=== PATIENT | female | born 1940 | race Caucasian/White ===

== ENCOUNTER 2017-07-07 11:18 | Inpatient (IN) | payer OTHER, MEDICARE ==
[~2017-07-07 11:18] MED LIST: ALBUTEROL SULFAT3 M1 NEB; AMLODIPINE BESYL5 M1 PO; ASPIRIN EC81 M1 PO; ASPIRIN81 M1 PO; ATORVASTATIN CA20 M1 PO; ATORVASTATIN CA20 MG PO; ATORVASTATIN CA40 MG PO; CALCIUM 600600 M1 PO; CALCIUM600 M3 PO; CEFUROXIME500 MG PO; CIPRO250 MG PO; COUMADIN 2 MG TA2 MG PO; COUMADIN 5 MG TA5 MG PO; COUMADIN 7.5 M7.5 MG PO; COUMADIN1 M1 PO; COUMADIN2 M1 PO; COUMADIN5 M2 PO; COUMADIN7.5 M1 PO; COZAAR 50MG TAB50 MG PO; DIFLUCAN150 M1 PO; FERROUS SULFAT325 M1 PO; FUROSEMIDE40 MG PO; HUMALOG MI100 UNIT/1 SC; IMDUR60 MG PO; IRON325 M3 PO; ISOSORBIDE MONO60 M1 PO; K-DUR 20MEQ TA20 MEQ PO; K-TAB ER20 MEQ PO; KEFLEX500 M1 PO; LASIX20 MG PO; LASIX80 M1 PO; LEVOTHYROXINE0.05 M1 PO; LEVOTHYROXINE50 MCG PO; LOPRESSOR 25MG25 MG PO; LOSARTAN POTAS100 MG PO; LOSARTAN POTASS50 M1 PO; LOSARTAN POTASS50 MG PO; MAGNESIUM OXID400 MG PO; MAGNESIUM400 M1 PO; METFORMIN ER500 MG PO; METFORMIN HCL500 M4 PO; METOPROLOL TART25 M1 PO; Mucinex PO; NATURAL IRON65 MG PO; NORVASC 5MG TAB5 MG PO; PERCOCET 5-3251 EACH PO; PERPHEN AMITRI PO; POTASSIUM CHLO10 MEQ PO; PREDNISONE10 MG PO; PRILOSEC 20MG C20 MG PO; PROLIA60 MG/1 ML INJ; PYRIDIUM100 M1 PO; PYRIDIUM100 MG PO; SYMBICORT 160/41 PUF INH; SYMBICORT 16010.2 GM INH; VITAMIN D1000 IU PO; VITAMIN D1000 UNIT PO; [UNRECOGNIZED DRUG - OTHER] PO
--- NOTE | 2017-07-07 12:23 | ED CARDIAC/CP/PALPITATIONS ---
History of Present Illness General Chief Complaint: Dyspnea (COPD, CHF, Other) Stated Complaint: SOB; SENT IN BY MD DENIS FOR ?CHF Source: patient, old records, EMS Exam Limitations: no limitations Vital Signs & Intake/Output Vital Signs & Intake/Output Vital Signs Date Time Temp Pulse Resp B/P B/P Pulse O2 O2 Flow FiO2 Mean Ox Delivery Rate 07/07 1339 98.0 87 20 132/81 94 Room Air 07/07 1137 98.5 71 26 164/64 94 Room Air Allergies Coded Allergies: grass pollen (Mild, RUNNY NOSE/EYES 03/27/17) Sulfa (Sulfonamide Antibiotics) (RASH 03/27/17) sulfamethoxazole (From BACTRIM) (Intermediate, NAUSEA, RASH 03/27/17) trimethoprim (From BACTRIM) (Intermediate, NAUSEA, RASH 03/27/17) Reconcile Medications Amlodipine Besylate 5 MG TABLET 1 TAB PO DAILY BP (Reported) Aspirin (Ecotrin*) 81 MG TABLET.DR 1 TAB PO DAILY HEART/BLOOD (Reported) Atorvastatin Calcium 20 MG TABLET 3 TAB PO DAILY CHOLESTEROL (Reported) Budesonide/Formoterol Fumarate (Symbicort 160-4.5 Mcg Inhaler) 160 MCG-4.5 MCG/ ACTUATION HFA.AER.AD 2 PUF INH BID RESP. (Reported) Calcium (Elemental-Fr Calcarb) (Calcium) 600 MG CALCIUM (1,500 MG) TABLET 1, 200 MG PO DAILY SUPPLEMENT (Reported) Cholecalciferol (Vitamin D3) (Vitamin D) 1,000 UNIT TABLET 1 TAB PO DAILY SUPPLEMENT (Reported) Denosumab (Prolia) (Unknown Strength) SYRINGE (Unknown Dose) INJ Q6M OSTEOPOROSIS (Reported) Ferrous Sulfate (IRON) 325 MG (65 MG IRON) TABLET 1 TAB PO DAILY SUPPLEMENT ( Reported) Furosemide (Lasix) 80 MG TABLET 1 TAB PO BID DIURETIC (Reported) Insulin NPL/Insulin Lispro (Humalog Mix 75-25 Vial) 100 UNIT/1 ML VIAL 8 UNITS SC QAM DIABETES (Reported) Isosorbide Mononitrate (Isosorbide Mononitrate ER) 60 MG TAB.ER.24H 1 TAB PO DAILY HEART (Reported) Levothyroxine Sodium 50 MCG TABLET 1 TAB PO DAILY AC THYROID (Reported) Losartan Potassium 50 MG TABLET 1 TAB PO DAILY BP (Reported) Metformin HCl (Metformin HCl ER) 500 MG TAB.ER.24H 2 TAB PO DAILY DM ( Reported) Metoprolol Tartrate 25 MG TABLET 1 TAB PO BID HEART/BP (Reported) Perphenazine/Amitriptyline HCl (Perphen-Amitrip 2 MG-25 MG Tab) 2 MG-25 MG TABLET 1 TAB PO QAM MENTAL HEALTH (Reported) Potassium Chloride (K-Tab ER) 20 MEQ TABLET.ER 1 TAB PO DAILY SUPPLEMENT ( Reported) Warfarin Sodium (Coumadin) 5 MG TABLET 1 TAB PO MoTu BLOOD THINNER (Reported) Warfarin Sodium (Coumadin) 7.5 MG TABLET 1 TAB PO SuWeThFrSa BLOOD THINNER ( Reported) Triage Note: PT TO ED FOR C/O SOB. PT WAS D/C'D FROM ED THIS AM WITH DX OF CHF. PT RETURNS C/O FEELING WEAK, TIRED AND STILL SOB. PT SEE'S DR DENIS. CURRENTLY DENIES PAIN. PT APPEARS SOB WITH SPEECH. EKG DONE. RA SATS 94%. PT TAKEN TO ROOM 20 VIA W/C FOR PROVIDER EVAL. Triage Nurses Notes Reviewed? yes Onset: Gradual Duration: day(s): (4) Timing: multiple episodes today Quality/Severity: moderate Location: central, epigastric Radiation: no radiation Activities at Onset: none Prior Chest Pain/Card Workup: echocardiography Aspirin Today: 81 mg x 1 Associated Symptoms: edema, fever/chills, shortness of breath, COUGH, NASAL CONGESTION, TREMORS HPI: PATIENT IS A 76 Y/O FEMALE WITH A PMH OF HTN,HLD, CHF, TYPE 2 DM, EMPHYSEMA, HYPOTHYROIDISM, A-FIB, VITAMIN- DEFICIENCY, AND NON-HODGKINS LYMPHOMA PRESENTING WITH 4 DAYS OF PROGRESSIVE SOB AND COUGH. THE COUGH IS PRODUCTIVE WITH THIN WHITE/YELLOW SPUTUM. THE SOB IS PROGRESSING, REQUIRING NEBULIZED ALBUTEROL EVERY 3-4 HOURS AT HOME WITH MINIMAL EFFECT. PATIENT STATES SHE WAS RECENTLY ON A FLIGHT FROM [place] ON THE AND FORGOT TO TAKE HER COUMADIN AND LASIX ON THAT DAY. SHE ALSO REPORTS SHE WAS RECENTLY AROUND HER DAUGHTER WHO HAD LARYNGITIS. PATIENT STATES THAT THIS EPISODE IS SIMILAR TO PREVIOUS CHF EXACERBATIONS. SHE REPORTS NASAL CONGESTION, TREMORS, AND CHILLS. SHE DENIES HEADACHE, N/V/D, CP, DIZZINESS, DYSURIA, AND LEG PAIN.PT WAS SEEN HERE LAST NIGHT AND DISCHARGED HOME. (Herb Chatterjee) Past History Travel History Traveled to [place] past 21 day No Medical History Any Pertinent Medical History? see below for history Neurological: SEIZURE-R/T MITRAL VALVE SURGERY,MEDICALY CLEARED EENT: cataracts Cardiovascular: AFIB, CHF, hypertension, hyperlipidemia, PACEMAKER MITRAL VALVE REPLACED HEART MURMUR Respiratory: COPD, emphysema, pneumonia Gastrointestinal: NONE Hepatic: NONE Renal: NONE Musculoskeletal: NONE Psychiatric: NONE Endocrine: diabetes, hypothyroidism Blood Disorders: NONE Cancer(s): non-hodgkin lymphoma COST REPORT CLERK/Reproductive: NONE History of MRSA: No History of VRE: No History of CDIFF: No Surgical History Surgical History: non-contributory, hysterectomy, [facility] mechanical valve Psychosocial History Who do you live with Patient/Self Services at Home None What is your primary language [place] Tobacco Use: Quit >30 days ago ETOH Use: denies use Illicit Drug Use: denies illicit drug use Other addictive behavior Hx PT HAS A 60 PACK YEAR HISTORY OF SMOKING Family History Family History, If Any: Relation not specified for: FHx: breast cancer in first degree relative Hx Contributory? Yes (Herb Chatterjee) Review of Systems Review of Systems Constitutional: Reports: no symptoms. EENTM: Reports: no symptoms. Respiratory: Reports: see HPI. Cardiovascular: Reports: see HPI. GI: Reports: no symptoms. Genitourinary: Reports: no symptoms. Musculoskeletal: Reports: no symptoms. Skin: Reports: no symptoms. Neurological/Psychological: Reports: no symptoms. Hematologic/Endocrine: Reports: no symptoms. Immunologic/Allergic: Reports: no symptoms. All Other Systems: Reviewed and Negative (Herb Chatterjee) Physical Exam Physical Exam General Appearance: anxious, cachetic, moderate distress, thin Head: atraumatic, normal appearance Eyes: Bilateral: normal appearance, PERRL, EOMI. Ears, Nose, Throat: nasal congestion, moist mucus membranes Neck: normal inspection, supple, full range of motion, JVD Respiratory: chest non-tender, crackles, wheezing Cardiovascular: murmur, tachycardia Peripheral Pulses: 2+ tibialis posterior (R), 2+ tibialis posterior (L), 2+ dorsalis pedis (R), 2+ dorsalis pedis (L) Gastrointestinal: normal bowel sounds, soft, non-tender, no organomegaly Rectal: deferred Extremities: pedal edema Neurologic/Psych: no motor/sensory deficits, oriented x 3 Skin: intact, normal color, warm/dry Lymphatic: no anterior cervical sherlyn Core Measures ACS in differential dx? Yes CVA/TIA Diagnosis No Sepsis Present: No Sepsis Focused Exam Completed? No (Herb Chatterjee) Progress Differential Diagnosis: AMI, aortic dissection, atrial fibrillation, CHF/pulm edema, costochondritis, hyperthyroid, musculoskeletal pain, myocarditis, pancreatitis, pericarditis, pneumonia, pneumothorax, pulmonary embolism, respiratory failure, sepsis, unstable angina Plan of Care: Orders Procedure Date/time Status Regular Diet 07/07 D Active Patient Data 07/07 1424 Active OXYGEN SETUP (GEN) 07/07 1409 Active Saline Lock 07/07 1409 Active Admit to inpatient 07/07 1409 Active Vital Signs 07/07 1409 Active Activity/Ambulation 07/07 1409 Active Code Status 07/07 1409 Active Add-on Test (ER Only) 07/07 1221 Active Add-on Test (ER Only) 07/07 1154 Active Telemetry/Motor Express Clerk 07/07 1154 Active THYROID STIMULATING HORMONE 07/07 1154 Complete TROPONIN LEVEL 07/07 1154 Complete COMPREHENSIVE METABOLIC PANEL 07/07 1154 Complete CBC WITHOUT DIFFERENTIAL 07/07 1154 Complete B-TYPE NATRIURETIC PEP (BNP) 07/07 1154 Complete EKG 07/07 1120 Active Laboratory Tests 07/07/17 1228: Anion Gap 12, Estimated GFR > 60, BUN/Creatinine Ratio 30.0 H, Glucose 246 H, Calcium 9.3, Total Bilirubin 0.5, AST 26, ALT 26, Alkaline Phosphatase 91, Troponin I 0.03, Bwc-T-Fymbfmxxldc Pept 3520 H, Total Protein 6.7, Albumin 4.3, Globulin 2.4, Albumin/Globulin Ratio 1.8, TSH 0.523, CBC w Diff NO MAN DIFF REQ, RBC 4.43, MCV 82.3, MCH 27.4, RDW 16.4 H, MPV 8.0, Gran % 90.6 H, Lymphocytes % 6.6 L, Monocytes % 2.8, Eosinophils % 0, Basophils % 0, Absolute Granulocytes 4.1, Absolute Lymphocytes 0.3 L, Absolute Monocytes 0.1, Absolute Eosinophils 0 , Absolute Basophils 0, PUBS MCHC 33.2 Diagnostic Imaging: Viewed by Me: Radiology Read. Discussed w/RAD: Radiology Read. Radiology Impression: PATIENT: OJ ENCINAS PRESENT AGE : 76 PATIENT ACCOUNT NO: [id number] : 40 LOCATION: [facility] ORDERING PHYSICIAN: Herb LANTIGUA SERVICE DATE: 07/07/17 EXAM TYPE: RAD - XRY-PORTABLE CHEST XRAY EXAMINATION: XR PORTABLE CHEST CLINICAL INFORMATION: Shortness of breath. History of CHF. COMPARISON: 07/07/2017 TECHNIQUE: Portable frontal view of the chest was obtained. FINDINGS: Right chest wall pacer with lead overlying the right ventricle is unchanged. Mitral annular hardware noted. Median sternotomy wires appear intact. The lungs are well expanded. Blunting at the left costophrenic angle is unchanged. Bronchial wall thickening again noted. No dense consolidation. No overt edema. No pneumothorax. The cardiomediastinal silhouette is unchanged, with a calcified aorta. IMPRESSION: No significant change. Blunting at the left costophrenic angle may represent a small pleural effusion. Bronchial wall thickening present which could be associated with mild fluid overload or a small airways process. DICTATED BY: Curt Oleary MD DATE/TIME DICTATED:07/07/171229 SETTER MACHINE:STANLEY DATE/TIME TRANSCRIBED:07/07/171229 CONFIDENTIAL, DO NOT COPY WITHOUT APPROPRIATE AUTHORIZATION. <Electronically signed in Other Vendor System> SIGNED BY: Curt Oleary MD 07/07/171235 Initial ED EKG: rate (79), pacemaker rhythm (Herb Chatterjee) Departure Departure Disposition: STILL A PATIENT Condition: Stable Clinical Impression Primary Impression: CHF exacerbation Secondary Impressions: COPD exacerbation Referrals: Jean Claude RODRÍGUEZ,Dominik Farmer (PCP/Family) Departure Forms: Customer Survey General Discharge Information Admission Note Spoke With: Konrad Julian MD Documentation of Exam: Documentation of any treatments & extenuating circumstances including Concerns Regarding Discharge (functional status, medication knowledge or non-compliance, living conditions, etc.) that warrant an admission rather than observation: Patient will require IV diuresis. Echocardiogram. Cardiac telemetry. Serial labs. Supplemental oxygen. Patient is still short of breath. Failed outpatient management. Cardiology consultation. Medically not safe for discharge at this time. (Herb Chatterjee) PA/MUSIC EDUCATOR Co-Sign Statement Statement: ED Attending supervision documentation- x I saw and evaluated the patient. I have also reviewed all the pertinent lab results and diagnostic results. I agree with the findings and the plan of care as documented in the PA's/MUSIC EDUCATOR's documentation. Worsening SOB, CARDONA with severe respiratory distress. [] I have reviewed the ED Record and agree with the PA's/MUSIC EDUCATOR's documentation. [] Additions or exceptions (if any) to the PAs/MUSIC EDUCATOR's note and plan are summarized below: [] (Raymundo RODRÍGUEZ,Macario) Critical Care Note Critical Care Note Critical Care Time: non-applicable (Herb Chatterjee)
--- NOTE | 2017-07-07 12:36 | RADIOLOGY REPORT ---
EXAMINATION: XR PORTABLE CHEST CLINICAL INFORMATION: Shortness of breath. History of CHF. COMPARISON: 07/07/2017 TECHNIQUE: Portable frontal view of the chest was obtained. FINDINGS: Right chest wall pacer with lead overlying the right ventricle is unchanged. Mitral annular hardware noted. Median sternotomy wires appear intact. The lungs are well expanded. Blunting at the left costophrenic angle is unchanged. Bronchial wall thickening again noted. No dense consolidation. No overt edema. No pneumothorax. The cardiomediastinal silhouette is unchanged, with a calcified aorta. IMPRESSION: No significant change. Blunting at the left costophrenic angle may represent a small pleural effusion. Bronchial wall thickening present which could be associated with mild fluid overload or a small airways process.
[2017-07-07 12:42] LABS: ABSOLUTE BASOPHIL COUNT 0 /CUMM (0.0-0.2); ABSOLUTE EOSINOPHIL COUNT 0 /CUMM (0.0-0.7); ABSOLUTE GRANULOCYTE CT 4.1 /CUMM (1.4-6.5); ABSOLUTE LYMPH COUNT 0.3 /CUMM (1.2-3.4); ABSOLUTE MONOCYTE COUNT 0.1 /CUMM (0.10-0.60); BASOPHIL % 0 % (0.0-2.0); EOSINOPHIL % 0 % (0-5); HEMATOCRIT 36.4 % (37-47); MEAN CORPUSCULAR HGB 27.4 PG (27.0-31.0); MEAN CORPUSCULAR HGB CONC 33.2 G/DL (33.0-37.0); MEAN CORPUSCULAR VOLUME 82.3 FL (81.0-99.0); RBC DISTRIBUTION WIDTH 16.4 % (11.5-14.5); RED BLOOD CELL CT 4.43 /CUMM (4.20-5.40); WHITE BLOOD CELL COUNT 4.6 /CUMM (4.8-10.8)
[2017-07-07 13:01] LABS: PLATELET COUNT 211 /CUMM (130-400)
[2017-07-07 13:02] LABS: GRANULOCYTE % 90.6 % (42.2-75.2)
--- NOTE | 2017-07-07 14:38 | History & Physical ---
Monika RODRÍGUEZ,[facility] 07/07/17 1438: General Information and HPI History of Present Illness: Ms. Rodriguez is a 76-year-old female with past medical history of congestive heart failure, seizure, mitral valve replacement with [facility] valve, cataracts, atrial fibrillation warfarin, hypertension, hyperlipidemia, pacemaker, COPD followed by Dr. Nails, diabetes mellitus, hypothyroidism, and non-Hodgkin's lymphoma who presents with shortness of breath and weakness. The patient recently traveled from [place] to [place] on a 1.5 hour flight. She also had a 5 hour car trip previous to this getting to the airport during which she missed several of her furosemide doses. She has also experienced experiencing cold symptoms including cough with some sputum, chills, nasal congestion, sinus pressure, and fatigue. She does have positive sick contacts with her daughter. Her son, Martinez, who is a physician prescribed cephalexin for her upper respiratory illness. She has taken 1 dose. When she returned from [place] she became short of breath on Thursday. This progressed and she decided to come in for further evaluation early this morning. She was treated the ED for CHF exacerbation with diuretics and then discharged without being admitted. She went home, took a nap, and woke up again short of breath. She used a nebulizer treatment which helped a little bit. However she then became panicked about her breathing and activated EMS brought her back to the emergency room. She is a patient of Dr. Huerta'eliezer. Associated with her shortness of breath is some chest/ epigastric pain that comes and goes. She does sleep in a recliner and has noticed some slight weight gain of 3 pounds and swollen legs recently. No fever, night sweats, headache, diet change, abdominal pain, dysuria. Allergies/Medications Allergies: Coded Allergies: grass pollen (Mild, RUNNY NOSE/EYES 03/27/17) Sulfa (Sulfonamide Antibiotics) (RASH 03/27/17) sulfamethoxazole (From BACTRIM) (Intermediate, NAUSEA, RASH 03/27/17) trimethoprim (From BACTRIM) (Intermediate, NAUSEA, RASH 03/27/17) Home Med list Amlodipine Besylate 5 MG TABLET 1 TAB PO DAILY BP (Reported) Aspirin (Ecotrin*) 81 MG TABLET.DR 1 TAB PO DAILY HEART/BLOOD (Reported) Atorvastatin Calcium 20 MG TABLET 3 TAB PO DAILY CHOLESTEROL (Reported) Budesonide/Formoterol Fumarate (Symbicort 160-4.5 Mcg Inhaler) 160 MCG-4.5 MCG/ ACTUATION HFA.AER.AD 2 PUF INH BID RESP. (Reported) Calcium (Elemental-Fr Calcarb) (Calcium) 600 MG CALCIUM (1,500 MG) TABLET 1, 200 MG PO DAILY SUPPLEMENT (Reported) Cholecalciferol (Vitamin D3) (Vitamin D) 1,000 UNIT TABLET 1 TAB PO DAILY SUPPLEMENT (Reported) Denosumab (Prolia) (Unknown Strength) SYRINGE (Unknown Dose) INJ Q6M OSTEOPOROSIS (Reported) Ferrous Sulfate (IRON) 325 MG (65 MG IRON) TABLET 1 TAB PO DAILY SUPPLEMENT ( Reported) Furosemide (Lasix) 80 MG TABLET 1 TAB PO BID DIURETIC (Reported) Insulin NPL/Insulin Lispro (Humalog Mix 75-25 Vial) 100 UNIT/1 ML VIAL 8 UNITS SC QAM DIABETES (Reported) Isosorbide Mononitrate (Isosorbide Mononitrate ER) 60 MG TAB.ER.24H 1 TAB PO DAILY HEART (Reported) Levothyroxine Sodium 50 MCG TABLET 1 TAB PO DAILY AC THYROID (Reported) Losartan Potassium 50 MG TABLET 1 TAB PO DAILY BP (Reported) Metformin HCl (Metformin HCl ER) 500 MG TAB.ER.24H 2 TAB PO DAILY DM ( Reported) Metoprolol Tartrate 25 MG TABLET 1 TAB PO BID HEART/BP (Reported) Perphenazine/Amitriptyline HCl (Perphen-Amitrip 2 MG-25 MG Tab) 2 MG-25 MG TABLET 1 TAB PO QAM MENTAL HEALTH (Reported) Potassium Chloride (K-Tab ER) 20 MEQ TABLET.ER 1 TAB PO DAILY SUPPLEMENT ( Reported) Warfarin Sodium (Coumadin) 5 MG TABLET 1 TAB PO MoTu BLOOD THINNER (Reported) Warfarin Sodium (Coumadin) 7.5 MG TABLET 1 TAB PO SuWeThFrSa BLOOD THINNER ( Reported) Past History Travel History Traveled to [place] past 21 day No Medical History Neurological: SEIZURE-R/T MITRAL VALVE SURGERY,MEDICALY CLEARED EENT: cataracts Cardiovascular: AFIB, CHF, hypertension, hyperlipidemia, PACEMAKER MITRAL VALVE REPLACED HEART MURMUR Respiratory: COPD, emphysema, pneumonia Gastrointestinal: NONE Hepatic: NONE Renal: NONE Musculoskeletal: NONE Psychiatric: NONE Endocrine: diabetes, hypothyroidism Blood Disorders: NONE Cancer(s): non-hodgkin lymphoma CANOPY INSPECTOR/Reproductive: NONE History of MRSA: No History of VRE: No History of CDIFF: No Surgical History Surgical History: non-contributory, hysterectomy, [facility] mechanical valve Past Family/Social History Family History Relations & Conditions if any Relation not specified for: FHx: breast cancer in first degree relative Psychosocial History Services at Home: None ETOH Use: denies use Illicit Drug Use: denies illicit drug use Other Social History: PT HAS A 60 PACK YEAR HISTORY OF SMOKING Functional Ability ADLs Independent: dressing, eating, toileting, bathing. Ambulation: independent IADLs Independent: shopping, housework, finances, food prep, telephone, transportation , medication admin. Review of Systems Review of Systems Constitutional: Reports: see HPI. EENTM: Reports: see HPI. Cardiovascular: Reports: see HPI. Respiratory: Reports: see HPI. GI: Reports: no symptoms. Genitourinary: Reports: no symptoms. Musculoskeletal: Reports: no symptoms. Skin: Reports: no symptoms. Neurological/Psychological: Reports: no symptoms. Hematologic/Endocrine: Reports: no symptoms. Immunologic/Allergic: Reports: no symptoms. All Other Systems: Reviewed and Negative Exam & Diagnostic Data Last 24 Hrs of Vital Signs/I&O Vital Signs Date Time Temp Pulse Resp B/P B/P Pulse O2 O2 Flow FiO2 Mean Ox Delivery Rate 07/07 1339 98.0 87 20 132/81 94 Room Air 07/07 1137 98.5 71 26 164/64 94 Room Air Intake & Output 07/07 1600 07/07 0800 07/07 0000 Intake Total Output Total Balance Patient 134 lb Weight Weight Reported by Patient Measurement Method Physical Exam General Appearance Alert, Oriented X3, Cooperative, Mild Distress, unable to speak n full sentences Skin No Rashes, No Breakdown, No Significant Lesion Sepsis Skin Exam (color): Normal for Ethnicity HEENT Atraumatic, PERRLA, EOMI Neck No JVD Cardiovascular Regular Rate, Normal S1, Normal S2 Lungs moderate wheezing bilaterally Abdomen Normal Bowel Sounds, Soft, No Tenderness Neurological Normal Speech Extremities Normal Pulses, trace edema bilaterally Last 24 Hrs of Labs/Fransisco: Laboratory Tests 07/07/17 1228: Anion Gap 12, Estimated GFR > 60, BUN/Creatinine Ratio 30.0 H, Glucose 246 H, Calcium 9.3, Total Bilirubin 0.5, AST 26, ALT 26, Alkaline Phosphatase 91, Troponin I 0.03, Uwh-D-Vhrijpertmj Pept 3520 H, Total Protein 6.7, Albumin 4.3, Globulin 2.4, Albumin/Globulin Ratio 1.8, TSH 0.523, CBC w Diff NO MAN DIFF REQ, RBC 4.43, MCV 82.3, MCH 27.4, RDW 16.4 H, MPV 8.0, Gran % 90.6 H, Lymphocytes % 6.6 L, Monocytes % 2.8, Eosinophils % 0, Basophils % 0, Absolute Granulocytes 4.1, Absolute Lymphocytes 0.3 L, Absolute Monocytes 0.1, Absolute Eosinophils 0 , Absolute Basophils 0, PUBS MCHC 33.2 Assessment/Plan Assessment: Ms. Rodriguez is a 76-year-old female with past medical history of congestive heart failure, seizure, mitral valve replacement with [facility] valve, cataracts, atrial fibrillation warfarin, hypertension, hyperlipidemia, pacemaker, COPD followed by Dr. Nails, diabetes mellitus, hypothyroidism, and non-Hodgkin's lymphoma who presents with shortness of breath and weakness. On presentation, vital signs were T 98.5, HR 71, RR 26, BP 164/64, saturating 94 % on room air. Laboratories are significant for white blood cell count 4.6, 90.6 % myelocytes, hemoglobin 12.1, BUN 24, creatine 0.8, glucose 246, calcium 9.3, negative LFTs, troponin 0.03, BNP 3520 (baseline 4020), TSH 0.523. Chest x-ray revealed no changes from prior but did show left small pleural effusion and bronchial wall thickening. She will be admitted to telemetry and treated for following problems: 1. Dyspnea 2. Upper respiratory infection #Dyspnea: Differential diagnosis includes COPD exacerbation, acute decompensated heart failure, and pulmonary embolus. I believe that heart failure is less likely given that her BNP is not significantly elevated above baseline, there is no JVD, and there is not significantly swollen legs. Additionally, she did receive IV furosemide at her first visit to the ER earlier this morning and her shortness of breath has not significantly improved. She has significant wheezing and bronchial wall thickening on x-ray showed also point to COPD. It is likely that an upper respiratory illness is the cause of this exacerbation. Her Well's scores is 1.5, indicating low risk for pulmonary embolism. -Pulmonology consult -Cardiology consult -Methylprednisone 40 mg once -TRC nebulizers -Continue home furosemide -D-dimer -EKG/Trop x3 #Chronic medical problems: Anemia, hypertension, COPD, hypothyroidism, CAD, hyperlipidemia, depression -Continue home potassium chloride, ferrous sulfate, amlodipine, furosemide, amitriptyline, albuterol, tiotropium, ipratropium, metoprolol, losartan, levothyroxine, isosorbide mononitrate, budesonide/formoterol, atorvastatin, aspirin -Daily INR, dose warfarin -Detemir plus insulin sliding scale DVT prophylaxis with warfarin consistent carbohydrate 2 diet Full code As Ranked By This Provider Problem List: 1. COPD exacerbation Core Measures/Misc (03/22) Acute Coronary Syndrome ACS Diagnosis: No Congestive Heart Failure Congestive Heart Failure Diagnosis No Cerebrovascular Accident CVA/TIA Diagnosis: No VTE (View Protocol) VTE Risk Factors Age>40 No Mechanical VTE Prophylaxis d/t N/A MechProphylax Ordered No VTE Pharm Prophylaxis d/t NA PharmProphylax ordered Sepsis (View protocol) Sepsis Present: No Red Newsome 07/07/17 1649: Resident Review Statement Resident Statement: examined this patient, discussed with news internship, agreed with news internship, discussed with family, reviewed EMR data (avail), discussed with nursing , discussed with case mgmt, reviewed images, amended to note Other Findings: 76 yo F ex-smoker with h/o HTN, COPD not on home O2, DM, diastolic heart failure , chronic atrial fibrillation (s/p electrical cardioversion (1997) with subsequent return to Afib, significant bradycardia with new RBBB that prompted PPM (2009)), Rheumatic heart disease/CAD, MS/MR s/p mitral valvuloplasty (1994) and subsequent CABG with MVR ([facility] 2001) on coumadin, hyperthyroidism s/p PTU with subsequent hypothyroidism, non-Hodgkin's lymphoma s/p chemo, is here with 5-day h/o worsening dyspnea on exertion, cough productive of white/yellow phlegm. The patient recently traveled from [place] to [place] on a 1.5 hour flight. She also had a 5 hour car trip previous to this getting to the airport during which she missed several of her furosemide doses. She has also experienced experiencing cold symptoms including cough with some sputum, chills, nasal congestion, sinus pressure, and fatigue. She does have positive sick contacts with her daughter. Her son, Martinez, who is a physician prescribed cephalexin for her upper respiratory illness. She has taken 1 dose. Getting mild relief with inhalers. She has shortness of breath this morning which prompted her to come to the ER. She was treated for CHF exacerbation with diuretics in the emergency room and was discharged to home. However her shortness of breath worsened after going home which made her to come to ER again. --- On presentation, vital signs were T 98.5, HR 71, RR 26, BP 164/64, saturating 94 % on room air. Laboratories are significant for white blood cell count 4.6, 90.6 % myelocytes, hemoglobin 12.1, BUN 24, creatine 0.8, glucose 246, calcium 9.3, negative LFTs, troponin 0.03, BNP 3520 (baseline 4020), TSH 0.523. Chest x-ray revealed no changes from prior but did show left small pleural effusion and bronchial wall thickening. 1. COPD exacerbation/acute bronchitis Patient presented with worsening shortness of breath associated with cough and yellow color sputum production and exposure to sick contacts. Minimal relief with inhaler treatment. She has bilateral wheezes. Chest x-ray suggestive of blunting of CP angle. No consolidation or pneumonia was found. * Admit to telemetry floor for COPD exacerbation and CHF * Telemetry monitoring * IV steroid 40 mg once tonight * Patent consult * Steroids taper from tomorrow based on pulm recommendations * Total respiratory care * Nebulizer treatment * Sputum culture and sensitivity * Urine Legionella and strep antigens * Check-Flu swab * Will hold antibiotics for now as there is no pneumonia on cxr, fever, leukocytosis Acute on chronic diastolic heart failure Patient presented with acute worsening of shortness of breath. She was discharged from ER this morning after treated for CHF exacerbation with the diuretics. Dr. Huerta is her bridges supervisor. Recommended to get admitted for CHF and COPD exacerbation. Last echocardiogram 2014 showed ejection fraction 55%. * Will get serial troponin and EKG * Rule out ACS * Patient takes 80 mg twice daily Lasix at home * Will continue home dose of Lasix * Daily weights * Ins and outs * Cardiology consult * Echocardiogram as per bridges supervisor * Given her recent travel history and shortness of breath will check d-dimer. Will get CTA if d-dimer is elevated Hypertension continue amlodipine and losartan Diabetes oizbjugb-Kftd-Cfdjw, insulin sliding scale. Hypothyroidism continue levothyroxine Atrial fibrillation continue metoprolol and Coumadin. Dose Coumadin daily based on INR Hyperlipidemia continue aspirin, statin, Imdur DVT prophylaxis on Coumadin Pain pathway Heart healthy diet Full code
--- NOTE | 2017-07-07 15:38 | Admission Certification ---
Admission Certification Certification Statement - As attending physician, I certify that at the time of - admission, based on clinical presentation, severity of - symptoms, need for further diagnostic testing and - therapeutic interventions, and risk of adverse outcomes - without in-hospital treatment, in my clinical assessment, - this patient requires an acute hospital stay for a minimum - of two nights or longer. I have also considered psychsocial - factors such as support system, advanced age, financial - issues, cognitive issues, and failed out-patient treatments, - past re-admission history, safety of patient, and lack of - compliance as applicable. Specific rationale supporting this admission is: acute chf exacerbation and acute copd exacerbation.
--- NOTE | 2017-07-07 15:45 | PN- Att Addend ---
Attending MD Review Statement Attending Statement Attending MD Statement: examined this patient, discuss w/resident/PA/CHIEF INNOVATION OFFICER, agreed w/resident/PA/CHIEF INNOVATION OFFICER, reviewed EMR data (avail), discussed w/case mgmt Attending Assessment/Plan: Laboratory Tests 07/07/17 1228: Anion Gap 12, Estimated GFR > 60, BUN/Creatinine Ratio 30.0 H, Glucose 246 H, Calcium 9.3, Total Bilirubin 0.5, AST 26, ALT 26, Alkaline Phosphatase 91, Troponin I 0.03, Rgd-M-Nlsoqrdbbgf Pept 3520 H, Total Protein 6.7, Albumin 4.3, Globulin 2.4, Albumin/Globulin Ratio 1.8, TSH 0.523, CBC w Diff NO MAN DIFF REQ, RBC 4.43, MCV 82.3, MCH 27.4, RDW 16.4 H, MPV 8.0, Gran % 90.6 H, Lymphocytes % 6.6 L, Monocytes % 2.8, Eosinophils % 0, Basophils % 0, Absolute Granulocytes 4.1, Absolute Lymphocytes 0.3 L, Absolute Monocytes 0.1, Absolute Eosinophils 0 , Absolute Basophils 0, PUBS MCHC 33.2 Vital Signs Date Time Temp Pulse Resp B/P B/P Pulse O2 O2 Flow FiO2 Mean Ox Delivery Rate 07/07 1339 98.0 87 20 132/81 94 Room Air 07/07 1137 98.5 71 26 164/64 94 Room Air 76 y/o female with PMH of COPD not on home oxygen, CHF, A.fib s/p pacemaker, diabetes who presented with c/c of sob. Pt was seen in ER this am for sob and was given iv lasix 80mg one dose and dced home. Pt at home again felt her sob worsening and came to the Er agan for evaluation. Pt on exam has b/l wheezing mild. Some leg swelling. Pt recently flew from [place] and also had a [address] prior to the flight. Pt is in mild resp distress and can talk in short sentences. Plan- Possible Acute CHF exacerbation with copd exacerbation. Given the pts recent travel history we will get a D dimer and if postive will get CTA to r/o PE. Will start her on Lasix 80 mg iv q12h. will give one dose of solumedrol 40mg iv and will get pulmonary and cardiology consult . Monitor on tele. serial trop. strict I & O . d/w pt the care plan. Pt i
[2017-07-07 17:35] VITALS: BP 134/70
[2017-07-07 22:43] VITALS: BP 130/68
[2017-07-08 06:44] VITALS: BP 136/74
[2017-07-08 06:46] VITALS: BP 136/74
--- NOTE | 2017-07-08 07:12 | PN- Housestaff ---
See Addendum Subjective Follow-up For: COPD/CHF Tele-Events Since Last Visit: Afib, 40-80 Subjective: No overnight events. She feels much better compared to admission, breathing has improved. Still not 100%. No CP, abd pain, or other complaints. Review of Systems Constitutional: Reports: no symptoms. EENTM: Reports: no symptoms. Cardiovascular: Reports: no symptoms. Respiratory: Reports: see HPI. Gastrointestinal: Reports: no symptoms. Genitourinary: Reports: no symptoms. Musculoskeletal: Reports: no symptoms. Skin: Reports: no symptoms. Neurological/Psychological: Reports: no symptoms. Hematologic/Endocrine: Reports: no symptoms. Immunologic/Allergic: Reports: no symptoms. Objective Last 24 Hrs of Vital Signs/I&O Vital Signs Date Time Temp Pulse Resp B/P B/P Pulse O2 O2 Flow FiO2 Mean Ox Delivery Rate 07/08 0646 98.2 77 18 136/74 92 Nasal 2.0L Cannula 07/08 0000 Nasal 2.0L Cannula 07/07 2243 98.7 78 18 130/68 93 Nasal 2.5L Cannula 07/07 2200 Nasal 2.0L Cannula 07/07 191 79 134/70 07/07 1912 79 134/70 07/07 1912 79 134/70 07/07 1735 98.3 79 18 134/70 94 Nasal 2.5L Cannula 07/07 1622 94 Room Air 07/07 1540 98.1 63 20 139/60 93 Room Air 07/07 1339 98.0 87 20 132/81 94 Room Air 07/07 1137 98.5 71 26 164/64 94 Room Air Intake & Output 07/08 0800 07/08 0000 07/07 1600 Intake Total 110 300 Output Total Balance 110 300 Intake, IV 10 Intake, Oral 100 300 Patient 134 lb 134 lb Weight Weight Reported by Patient Measurement Method Physical Exam General Appearance: Alert, Oriented X3, Cooperative, No Acute Distress Skin: No Rashes HEENT: Atraumatic Cardiovascular: irregualr Lungs: crackles and wheezing present bilaterally Abdomen: Normal Bowel Sounds, Soft, No Tenderness Extremities: Normal Pulses, No Tenderness/Swelling, trace edema bilaterally Current Medications: Current Medications Sig/Blanquita Start time Last Medication Dose Route Stop Time Status Admin Acetaminophen 650 MG Q6P PRN 07/07 1545 AC PO Acetaminophen 1,000 MG Q6P PRN 07/07 1545 AC IV Albuterol Sulfate 2 PUF Q4P PRN 07/08 0216 AC INH Albuterol Sulfate 2 PUF Q4 07/07 1800 DC 07/07 INH 2300 Amitriptyline HCl 25 MG AT BEDTIME 07/07 2200 AC 07/07 PO 2305 Amlodipine Besylate 5 MG DAILY 07/08 1000 AC PO Aspirin Buffered 81 MG DAILY 07/07 1545 AC 07/07 PO 1913 Atorvastatin Calcium 60 MG 1700 07/08 1700 AC PO Budesonide/ 2 PUF BID 07/07 1545 AC 07/07 Formoterol Fumarate INH 2200 Ferrous Sulfate 325 MG DAILY 07/08 1000 AC PO Furosemide 80 MG 7:30 AM, & 4:30 PM 07/08 0730 AC IV Furosemide 80 MG BID 07/07 2200 DC 07/07 PO 1939 Insulin Aspart 0 TIDAC 07/07 1600 AC 07/07 SC 1922 Ipratropium [place] 2.5 ML DAILY 07/07 1555 AC INH Isosorbide 60 MG DAILY 07/07 1549 AC 07/07 Mononitrate PO 1912 Levothyroxine Sodium 0.05 MG DAILY AC 07/07 1549 AC 07/08 PO 0437 Losartan Potassium 50 MG DAILY 07/07 1549 AC 07/07 PO 1912 Methylprednisolone 40 MG ONCE ONE 07/07 1545 DC 07/07 IV 07/07 1546 1932 Metoprolol Tartrate 25 MG BID 07/07 1549 AC 07/07 PO 1913 Potassium Chloride 20 MEQ DAILY 07/08 1000 AC PO Tiotropium [place] 1 PUF DAILY 07/07 1556 AC 07/07 INH 1915 Last 24 Hrs of Lab/Fransisco Results Last 24 Hrs of Labs/Mics: Laboratory Tests 07/08/17 0615: Troponin I Pending, PT Pending, INR Pending, CBC w Diff Pending, WBC Pending, RBC Pending, Hgb Pending, Hct Pending, MCV Pending, MCH Pending, RDW Pending, Plt Count Pending, MPV Pending, PUBS MCHC Pending 07/08/17 0100: Troponin I 0.06 07/07/17 2200: PT 33.0 H, INR 3.18 H 07/07/17 2200: Troponin I 0.05, D-Dimer High Sensitivty < 200 07/07/17 1542: PT Cancelled, INR Cancelled 07/07/17 1228: Anion Gap 12, Estimated GFR > 60, BUN/Creatinine Ratio 30.0 H, Glucose 246 H, Calcium 9.3, Total Bilirubin 0.5, AST 26, ALT 26, Alkaline Phosphatase 91, Troponin I 0.03, Ivp-E-Akjwfcqzwcm Pept 3520 H, Total Protein 6.7, Albumin 4.3, Globulin 2.4, Albumin/Globulin Ratio 1.8, TSH 0.523, CBC w Diff NO MAN DIFF REQ, RBC 4.43, MCV 82.3, MCH 27.4, RDW 16.4 H, MPV 8.0, Gran % 90.6 H, Lymphocytes % 6.6 L, Monocytes % 2.8, Eosinophils % 0, Basophils % 0, Absolute Granulocytes 4.1, Absolute Lymphocytes 0.3 L, Absolute Monocytes 0.1, Absolute Eosinophils 0 , Absolute Basophils 0, PUBS MCHC 33.2 Microbiology 07/07 1707 URINE ROUT: Legionella Antigen - COLB 07/07 1707 URINE ROUT: Streptococcus pneumoniae Antigen (M - COLB 07/07 1707 LOWER RESP: Respiratory Culture - COLB 07/07 1707 LOWER RESP: Gram Stain - COLB 07/07 1707 NASOPHARYN: Influenza Virus A & B Rapid Smear - COLB Assessment/Plan Assessment: Ms. Rodriguez is a 76-year-old female with past medical history of congestive heart failure, seizure, mitral valve replacement with [facility] valve, cataracts, atrial fibrillation warfarin, hypertension, hyperlipidemia, pacemaker, COPD followed by Dr. Nails, diabetes mellitus, hypothyroidism, and non-Hodgkin's lymphoma who presents with shortness of breath and weakness. Problem list: 1. COPD exacerbation 2. Upper respiratory infection #COPD exacerbation: D-dimer was negative. Chest x-ray more concerning for COPD although there may be an element of CHF. Likely caused by a recent upper respiratory infection. Her breathing has improved this morning compared to yesterday but she is still somewhat short of breath. EKG and troponins 3 have been negative -Appreciate Pulmonology recommendations -Appreciate cardiology recommendations -Methylprednisone 40 mg IV every 8 hours -TRC nebulizers -Continue home furosemide -Azithromycin 3 days -Follow-up TTE #Chronic medical problems: Anemia, hypertension, COPD, hypothyroidism, CAD, hyperlipidemia, depression -Continue home potassium chloride, ferrous sulfate, amlodipine, furosemide, amitriptyline, albuterol, tiotropium, ipratropium, metoprolol, losartan, levothyroxine, isosorbide mononitrate, budesonide/formoterol, atorvastatin, aspirin -Daily INR, dose warfarin -Detemir plus insulin sliding scale DVT prophylaxis with warfarin consistent carbohydrate 2 diet Full code Problem List: 1. COPD (chronic obstructive pulmonary disease) Pain Ratin Pain Location: no pain Pain Goal: Remain pain free Pain Plan: see a/p Tomorrow's Labs & Rationales: none
[2017-07-08 08:09] LABS: ABSOLUTE BASOPHIL COUNT 0 /CUMM (0.0-0.2); ABSOLUTE EOSINOPHIL COUNT 0 /CUMM (0.0-0.7); ABSOLUTE GRANULOCYTE CT 6.9 /CUMM (1.4-6.5); ABSOLUTE LYMPH COUNT 0.6 /CUMM (1.2-3.4); ABSOLUTE MONOCYTE COUNT 0.4 /CUMM (0.10-0.60); BASOPHIL % 0 % (0.0-2.0); EOSINOPHIL % 0.1 % (0-5); HEMATOCRIT 32.6 % (37-47); MEAN CORPUSCULAR HGB 27.9 PG (27.0-31.0); MEAN CORPUSCULAR HGB CONC 33.4 G/DL (33.0-37.0); MEAN CORPUSCULAR VOLUME 83.6 FL (81.0-99.0); RBC DISTRIBUTION WIDTH 16.9 % (11.5-14.5)
[2017-07-08 08:25] LABS: PT 24.7 SEC (9.4-12.5)
[2017-07-08 08:55] LABS: GRANULOCYTE % 87.3 % (42.2-75.2); PLATELET COUNT 206 /CUMM (130-400); WHITE BLOOD CELL COUNT 7.9 /CUMM (4.8-10.8)
--- NOTE | 2017-07-08 10:57 | Cons- Cardiology ---
General Information and HPI Consulting Request Date of Consult: 07/08/17 Requested By: Andres RODRÍGUEZ,Mckay Cowart Reason for Consult: Shortness of breath. Source of Information: patient, family, old records Exam Limitations: poor historian History of Present Illness: Mrs. Cristina Rodriguez is a 74-year-old white female with a history of hypertension, dyslipidemia, diabetes mellitus, chronic atrial fibrillation (status post electrical cardioversion 07/1997 with subsequent return to atrial fibrillation, significant bradycardia with long pauses and new RBBB that prompted permanent pacemaker implantation 10/13/2009), and rheumatic heart disease/coronary artery disease/HFpEF (with mitral stenosis/mitral regurgitation, status post mitral valvuloplasty 05/1995 and subsequent to that mitral valve replacement with a [address] [employer] mechanical prosthesis and CABG 1 in 09/2001), initial hyperthyroidism status post PTU with subsequent hypothyroidism, non-Hodgkin's lymphoma status post chemotherapy, long-standing tobacco use, COPD with previous acute exacerbations, pulmonary nodules, and left vocal cord paralysis who was presented to the ED on 07/07/2016 with progressive worsening shortness of breath. She recently returned from [place] on antimicrobial therapy (cephalexin) for upper respiratory symptoms (chills, nasal congestion, productive cough, etc.) on a flight that lasted 1-1/2 hours following a 5 hour automobile trip to the airport during which several doses of her diuretic were missed. She became short of breath on Thursday07/04/2017 which progressed to the point that she sought emergency department evaluation on 07/07/2016 and was discharged back to home after being diuresed for what was felt to be HFpEFan acute exacerbation. Back home she napped, but awoke again feeling short of breath used her nebulizer and returned to the ED. At present, she states that her breathing has improved. She was most recently hospitalized here (03/27-03/31/2017) for acute on chronic HFpEF that responded to standard therapy. . Allergies/Medications Allergies: Coded Allergies: grass pollen (Mild, RUNNY NOSE/EYES 03/27/17) Sulfa (Sulfonamide Antibiotics) (RASH 03/27/17) sulfamethoxazole (From BACTRIM) (Intermediate, NAUSEA, RASH 03/27/17) trimethoprim (From BACTRIM) (Intermediate, NAUSEA, RASH 03/27/17) Home Med List: Amlodipine Besylate 5 MG TABLET 1 TAB PO DAILY BP (Reported) Aspirin (Ecotrin*) 81 MG TABLET.DR 1 TAB PO DAILY HEART/BLOOD (Reported) Atorvastatin Calcium 20 MG TABLET 3 TAB PO DAILY CHOLESTEROL (Reported) Budesonide/Formoterol Fumarate (Symbicort 160-4.5 Mcg Inhaler) 160 MCG-4.5 MCG/ ACTUATION HFA.AER.AD 2 PUF INH BID RESP. (Reported) Calcium (Elemental-Fr Calcarb) (Calcium) 600 MG CALCIUM (1,500 MG) TABLET 1, 200 MG PO DAILY SUPPLEMENT (Reported) Cholecalciferol (Vitamin D3) (Vitamin D) 1,000 UNIT TABLET 1 TAB PO DAILY SUPPLEMENT (Reported) Denosumab (Prolia) (Unknown Strength) SYRINGE (Unknown Dose) INJ Q6M OSTEOPOROSIS (Reported) Ferrous Sulfate (IRON) 325 MG (65 MG IRON) TABLET 1 TAB PO DAILY SUPPLEMENT ( Reported) Furosemide (Lasix) 80 MG TABLET 1 TAB PO BID DIURETIC (Reported) Insulin NPL/Insulin Lispro (Humalog Mix 75-25 Vial) 100 UNIT/1 ML VIAL 8 UNITS SC QAM DIABETES (Reported) Isosorbide Mononitrate (Isosorbide Mononitrate ER) 60 MG TAB.ER.24H 1 TAB PO DAILY HEART (Reported) Levothyroxine Sodium 50 MCG TABLET 1 TAB PO DAILY AC THYROID (Reported) Losartan Potassium 50 MG TABLET 1 TAB PO DAILY BP (Reported) Metformin HCl (Metformin HCl ER) 500 MG TAB.ER.24H 2 TAB PO DAILY DM ( Reported) Metoprolol Tartrate 25 MG TABLET 1 TAB PO BID HEART/BP (Reported) Perphenazine/Amitriptyline HCl (Perphen-Amitrip 2 MG-25 MG Tab) 2 MG-25 MG TABLET 1 TAB PO QAM MENTAL HEALTH (Reported) Potassium Chloride (K-Tab ER) 20 MEQ TABLET.ER 1 TAB PO DAILY SUPPLEMENT ( Reported) Warfarin Sodium (Coumadin) 5 MG TABLET 1 TAB PO MoTu BLOOD THINNER (Reported) Warfarin Sodium (Coumadin) 7.5 MG TABLET 1 TAB PO SuWeThFrSa BLOOD THINNER ( Reported) Past History Travel History Traveled to [place] past 21 day No Medical History Neurological: SEIZURE-R/T MITRAL VALVE SURGERY,MEDICALY CLEARED EENT: cataracts Cardiovascular: AFIB, CHF, hypertension, hyperlipidemia, PACEMAKER MITRAL VALVE REPLACED HEART MURMUR Respiratory: COPD, emphysema, pneumonia Gastrointestinal: NONE Hepatic: NONE Renal: NONE Musculoskeletal: NONE Psychiatric: NONE Endocrine: diabetes, hypothyroidism Blood Disorders: NONE Cancer(s): non-hodgkin lymphoma RESEARCH PHYSICIAN/Reproductive: NONE Surgical History Surgical History: non-contributory, hysterectomy, [facility] mechanical valve Family History Relations & Conditions If Any: Relation not specified for: FHx: breast cancer in first degree relative Psychosocial History Where Do You Live? Home Services at Home: None Smoking Status: Former Smoker ETOH Use: denies use Illicit Drug Use: denies illicit drug use Other Social History: PT HAS A 60 PACK YEAR HISTORY OF SMOKING Functional Ability ADLs Independent: dressing, eating, toileting, bathing. Ambulation: independent IADLs Independent: shopping, housework, finances, food prep, telephone, transportation , medication admin. Exam & Diagnostic Data Vital Signs and I&O Vital Signs Date Time Temp Pulse Resp B/P B/P Pulse O2 O2 Flow FiO2 Mean Ox Delivery Rate 07/08 1000 71 137/73 07/08 1000 71 136/73 07/08 1000 71 136/73 07/08 1000 98.2 71 18 136/70 07/08 0646 98.2 77 18 136/74 92 Nasal 2.0L Cannula 07/08 0000 Nasal 2.0L Cannula 07/07 2243 98.7 78 18 130/68 93 Nasal 2.5L Cannula 07/07 2200 Nasal 2.0L Cannula 07/07 191 79 134/70 / 1912 79 134/70 07/07 1912 79 134/70 07/07 1735 98.3 79 18 134/70 94 Nasal 2.5L Cannula 07/07 1622 94 Room Air 07/07 1540 98.1 63 20 139/60 93 Room Air 07/07 1339 98.0 87 20 132/81 94 Room Air 07/07 1137 98.5 71 26 164/64 94 Room Air Intake & Output 07/08 1600 07/08 0800 07/08 0000 07/07 1600 07/07 0800 07/07 0000 Intake Total 110 300 Output Total Balance 110 300 Intake, IV 10 Intake, Oral 100 300 Patient 134 lb 134 lb Weight Weight Reported by Patient Measurement Method Physical Exam: Well-developed, well-nourished elderly white female in no acute distress. Vital signs: See above. HEENT: Normocephalic/atraumatic, EOMI, moist mucous membranes. Neck: No JVD, bilateral bruits versus transmitted systolic murmur. Lungs: Decreased breath sounds bilaterally, few bibasilar crackles, and expiratory wheezing. Heart: S1, S2 with appropriate mechanical valve sound and grade 2/6 systolic murmur. Extremities: No edema. Labs/[place] Results: Laboratory Tests 07/08 07/08 07/08 0615 0615 0100 Chemistry Sodium (137 - 145 mmol/L) 138 Potassium (3.5 - 5.1 mmol/L) 4.1 Chloride (98 - 107 mmol/L) 102 Carbon Dioxide (22 - 30 mmol/L) 26 Anion Gap (5 - 16) 10 BUN (7 - 17 mg/dL) 33 H Creatinine (0.5 - 1.0 mg/dL) 1.0 Estimated GFR (>60 ml/min) 54 L BUN/Creatinine Ratio (7 - 25 %) 33.0 H Troponin I (< 0.11 ng/ml) Cancelled 0.04 0.06 Coagulation PT (9.4 - 12.5 SEC) 24.7 H INR (0.90 - 1.19) 2.37 H Hematology CBC w Diff NO MAN DIFF REQ WBC (4.8 - 10.8 /CUMM) 7.9 RBC (4.20 - 5.40 /CUMM) 3.90 L Hgb (12.0 - 16.0 G/DL) 10.9 L Hct (37 - 47 %) 32.6 L MCV (81.0 - 99.0 FL) 83.6 MCH (27.0 - 31.0 PG) 27.9 RDW (11.5 - 14.5 %) 16.9 H Plt Count (130 - 400 /CUMM) 206 MPV (7.4 - 10.4 FL) 9.0 Gran % (42.2 - 75.2 %) 87.3 H Lymphocytes % (20.5 - 51.1 %) 7.3 L Monocytes % (1.7 - 9.3 %) 5.3 Eosinophils % (0 - 5 %) 0.1 Basophils % (0.0 - 2.0 %) 0 Absolute Granulocytes (1.4 - 6.5 /CUMM) 6.9 H Absolute Lymphocytes (1.2 - 3.4 /CUMM) 0.6 L Absolute Monocytes (0.10 - 0.60 /CUMM) 0.4 Absolute Eosinophils (0.0 - 0.7 /CUMM) 0 Absolute Basophils (0.0 - 0.2 /CUMM) 0 PUBS MCHC (33.0 - 37.0 G/DL) 33.4 0107/07 2200 2200 1542 Chemistry Troponin I (< 0.11 ng/ml) 0.05 Coagulation PT (9.4 - 12.5 SEC) 33.0 H Cancelled INR (0.90 - 1.19) 3.18 H Cancelled D-Dimer High Sensitivty (0 - 243 ng/ml) < 200 07/07 1228 Chemistry Sodium (137 - 145 mmol/L) 138 Potassium (3.5 - 5.1 mmol/L) 4.1 Chloride (98 - 107 mmol/L) 98 Carbon Dioxide (22 - 30 mmol/L) 28 Anion Gap (5 - 16) 12 BUN (7 - 17 mg/dL) 24 H Creatinine (0.5 - 1.0 mg/dL) 0.8 Estimated GFR (>60 ml/min) > 60 BUN/Creatinine Ratio (7 - 25 %) 30.0 H Glucose (65 - 99 mg/dL) 246 H Calcium (8.4 - 10.2 mg/dL) 9.3 Total Bilirubin (0.2 - 1.3 mg/dL) 0.5 AST (14 - 36 U/L) 26 ALT (9 - 52 U/L) 26 Alkaline Phosphatase (<127 U/L) 91 Troponin I (< 0.11 ng/ml) 0.03 Pdd-E-Gelyntanbnx Pept (<125 pg/mL) 3520 H Total Protein (6.3 - 8.2 g/dL) 6.7 Albumin (3.5 - 5.0 g/dL) 4.3 Globulin (1.9 - 4.2 gm/dL) 2.4 Albumin/Globulin Ratio (1.1 - 2.2 %) 1.8 TSH (0.270 - 4.200 uIU/mL) 0.523 Hematology CBC w Diff NO MAN DIFF REQ WBC (4.8 - 10.8 /CUMM) 4.6 L RBC (4.20 - 5.40 /CUMM) 4.43 Hgb (12.0 - 16.0 G/DL) 12.1 Hct (37 - 47 %) 36.4 L MCV (81.0 - 99.0 FL) 82.3 MCH (27.0 - 31.0 PG) 27.4 RDW (11.5 - 14.5 %) 16.4 H Plt Count (130 - 400 /CUMM) 211 MPV (7.4 - 10.4 FL) 8.0 Gran % (42.2 - 75.2 %) 90.6 H Lymphocytes % (20.5 - 51.1 %) 6.6 L Monocytes % (1.7 - 9.3 %) 2.8 Eosinophils % (0 - 5 %) 0 Basophils % (0.0 - 2.0 %) 0 Absolute Granulocytes (1.4 - 6.5 /CUMM) 4.1 Absolute Lymphocytes (1.2 - 3.4 /CUMM) 0.3 L Absolute Monocytes (0.10 - 0.60 /CUMM) 0.1 Absolute Eosinophils (0.0 - 0.7 /CUMM) 0 Absolute Basophils (0.0 - 0.2 /CUMM) 0 PUBS MCHC (33.0 - 37.0 G/DL) 33.2 Diagnostic Data EKG Results 07/08/2017: Atrial fibrillation/flutter with properly functioning electronic pacemaker. No significant change when compared to previous tracing from 07/07/2017. CXR Results 07/07/2017: No significant change. Blunting at the left costophrenic angle may represent a small pleural effusion. Bronchial wall thickening present which could be associated with mild fluid overload or a small airways process. Assessment/Plan Assessment/Plan 76 [id number] w/ hx hyperthyroidism s/p PTU w/ subsequent hypothyroidism, non- Hodgkin's lymphoma s/p chemo, long-standing tobacco use, COPD with previous hospitalizations for acute exacerbations, pulmonary nodules, left vocal cord paralysis, HTN, HLD, ch AF on anticoagulation, symptomatic bradycardia w/ pauses & new RBBB s/p ppm 10/13/2009, & RHD/CAD/HFpEF (MS/MR, s/p mitral valvuloplasty 05/1995, s/p MVR [21mm [facility]] & CABG x 1 09/2001) who presented to the ED 03/27/2017 w/ progressive SOB that has improved following management for both an AE COPD and HFpEF. Fortunately, she has had no acute electrocardiographic changes or evidence of myocardial necrosis by serial troponin I determinations. Rommendations: * Continue on telemetry with strict inputs/outputs and daily weights. * Continue on her present cardiac regimen, but may need to hold today's diuretic given her increased BUN/creatinine. * TRC, oxygen, antimicrobial therapy, steroids, etc. as per hospitalist/ pulmonary medicine. * Consider repeat echocardiogram to reassess her left ventricular function, right ventricular function, pulmonary pressures, prosthetic mitral valve, etc. * Note that given the fact she has a mechanical mitral valve prosthesis and atrial fibrillation her goal INR is 2.5-3.5. * Low-dose aspirin therapy is also recommended for patients with mechanical valvular prostheses. * Check magnesium, glycosylated hemoglobin A1c, etc. * DVT prophylaxis being addressed by the warfarin anticoagulation. * Outpatient pharmacologic stress testing to exclude an ischemic component to her presentation. Further recommendations will follow, Thank you. Consult Acknowledgment - Thank you for your consult request.
--- NOTE | 2017-07-08 12:06 | Cons- Pulmonary ---
General Information and HPI Consulting Request Date of Consult: 07/08/17 Requested By: Dr. Campos Reason for Consult: dyspnea Source of Information: patient Exam Limitations: no limitations History of Present Illness: 76 year old woman. Known to me from the office. Hx of hemoptysis, resolved. On Coumadin for a.fib. At respiratory baseline. On Symbicort. CT 02/2017 1. There is mildly diminished moderate linear scar/subsegmental atelectasis in the lingula and posterolateral left lower lobe. No central bronchiolar obstruction is seen. Recommend continued attention on follow-up. 2. No focal pulmonary mass, infiltrate or nodule is seen. 3. No sizable mediastinal or hilar adenopathy is seen. 4. A small gallstone is seen. 5. There is left renal atrophy. 6. There is marked diverticulosis, without acute diverticulitis. 7. No splenomegaly is seen. There is no abdominopelvic lymphadenopathy or free fluid. 8. There are small fat-containing bilateral inguinal hernias. 9. There are multi-level thoracolumbar degenerative changes. She has been compliant with her Symbicort and albuterol. Follows with Dr. Huerta. PFTs 2014 show mild obstructive disease and mild reduction in DLCO. She has chronic bronchitis and emphysema. In 2007 diagnosed via bone marrow biopsy to have non-Hodgkin's lymphoma (Splenic Marginal Zone Lymphoma). Has been in remission since treatment at that time. She has been on Rituximab/Fludarabine and CVP in the past. She has an extensive smoking history since the age 20, quit last year and has smoked about 1 pack per day. Hx of CHF. Recent trip to see her son to [place], skipped lasix dose, also daughter was a sick contact with URI. Allergies/Medications Allergies: Coded Allergies: grass pollen (Mild, RUNNY NOSE/EYES 03/27/17) Sulfa (Sulfonamide Antibiotics) (RASH 03/27/17) sulfamethoxazole (From BACTRIM) (Intermediate, NAUSEA, RASH 03/27/17) trimethoprim (From BACTRIM) (Intermediate, NAUSEA, RASH 03/27/17) Home Med List: Amlodipine Besylate 5 MG TABLET 1 TAB PO DAILY BP (Reported) Aspirin (Ecotrin*) 81 MG TABLET.DR 1 TAB PO DAILY HEART/BLOOD (Reported) Atorvastatin Calcium 20 MG TABLET 3 TAB PO DAILY CHOLESTEROL (Reported) Budesonide/Formoterol Fumarate (Symbicort 160-4.5 Mcg Inhaler) 160 MCG-4.5 MCG/ ACTUATION HFA.AER.AD 2 PUF INH BID RESP. (Reported) Calcium (Elemental-Fr Calcarb) (Calcium) 600 MG CALCIUM (1,500 MG) TABLET 1, 200 MG PO DAILY SUPPLEMENT (Reported) Cholecalciferol (Vitamin D3) (Vitamin D) 1,000 UNIT TABLET 1 TAB PO DAILY SUPPLEMENT (Reported) Denosumab (Prolia) (Unknown Strength) SYRINGE (Unknown Dose) INJ Q6M OSTEOPOROSIS (Reported) Ferrous Sulfate (IRON) 325 MG (65 MG IRON) TABLET 1 TAB PO DAILY SUPPLEMENT ( Reported) Furosemide (Lasix) 80 MG TABLET 1 TAB PO BID DIURETIC (Reported) Insulin NPL/Insulin Lispro (Humalog Mix 75-25 Vial) 100 UNIT/1 ML VIAL 8 UNITS SC QAM DIABETES (Reported) Isosorbide Mononitrate (Isosorbide Mononitrate ER) 60 MG TAB.ER.24H 1 TAB PO DAILY HEART (Reported) Levothyroxine Sodium 50 MCG TABLET 1 TAB PO DAILY AC THYROID (Reported) Losartan Potassium 50 MG TABLET 1 TAB PO DAILY BP (Reported) Metformin HCl (Metformin HCl ER) 500 MG TAB.ER.24H 2 TAB PO DAILY DM ( Reported) Metoprolol Tartrate 25 MG TABLET 1 TAB PO BID HEART/BP (Reported) Perphenazine/Amitriptyline HCl (Perphen-Amitrip 2 MG-25 MG Tab) 2 MG-25 MG TABLET 1 TAB PO QAM MENTAL HEALTH (Reported) Potassium Chloride (K-Tab ER) 20 MEQ TABLET.ER 1 TAB PO DAILY SUPPLEMENT ( Reported) Warfarin Sodium (Coumadin) 5 MG TABLET 1 TAB PO MoTu BLOOD THINNER (Reported) Warfarin Sodium (Coumadin) 7.5 MG TABLET 1 TAB PO SuWeThFrSa BLOOD THINNER ( Reported) Current Medications: Current Medications Sig/Blanquita Start time Last Medication Dose Route Stop Time Status Admin Acetaminophen 650 MG Q6P PRN 07/07 1545 AC PO Acetaminophen 1,000 MG Q6P PRN 07/07 1545 AC IV Albuterol Sulfate 2 PUF Q4P PRN 07/08 0216 AC INH Albuterol Sulfate 2 PUF Q4 07/07 1800 DC 07/07 INH 2300 Amitriptyline HCl 25 MG AT BEDTIME 07/07 2200 AC 07/07 PO 2305 Amlodipine Besylate 5 MG DAILY 07/08 1000 AC 07/08 PO 1000 Aspirin Buffered 81 MG DAILY 07/07 1545 AC 07/08 PO 1000 Atorvastatin Calcium 60 MG 1700 07/08 1700 AC PO Azithromycin 500 MG DAILY 07/08 1015 AC PO 07/10 1001 Budesonide/ 2 PUF BID 07/07 1545 AC 07/08 Formoterol Fumarate INH 1001 Ferrous Sulfate 325 MG DAILY 07/08 1000 AC 07/08 PO 1000 Furosemide 80 MG 7:30 AM, & 4:30 PM 07/08 1630 AC PO Furosemide 80 MG 7:30 AM, & 4:30 PM 07/08 0730 DC 07/08 IV 0832 Furosemide 80 MG BID 07/07 2200 DC 07/07 PO 1939 Insulin Aspart 0 TIDAC 07/07 1600 AC 07/08 SC 0832 Ipratropium Leon 2.5 ML DAILY 07/07 1555 AC INH Isosorbide 60 MG DAILY 07/07 1549 AC 07/08 Mononitrate PO 1000 Levothyroxine Sodium 0.05 MG DAILY AC 07/07 1549 AC 07/08 PO 0437 Losartan Potassium 50 MG DAILY 07/07 1549 AC 07/08 PO 1000 Methylprednisolone 40 MG Q8 07/08 1400 AC IV Methylprednisolone 40 MG ONCE ONE 07/07 1545 DC 07/07 IV 07/07 1546 1932 Metoprolol Tartrate 25 MG BID 07/07 1549 AC 07/08 PO 1000 Potassium Chloride 20 MEQ DAILY 07/08 1000 AC 07/08 PO 1000 Tiotropium Leon 1 PUF DAILY 07/07 1556 AC 07/07 INH 1915 Warfarin Sodium 5 MG COUMADIN 1700 ONE 07/08 1700 AC PO 07/08 1701 Warfarin Sodium 5 MG COUMADIN 1700 ONE 07/08 1700 AC PO 07/08 1701 Review of Systems Comments 18 pt ROS reviewed pertinent positives and negatives in HPI otherwise negative Past History Travel History Traveled to [place] past 21 day No Medical History Neurological: SEIZURE-R/T MITRAL VALVE SURGERY,MEDICALY CLEARED EENT: cataracts Cardiovascular: AFIB, CHF, hypertension, hyperlipidemia, PACEMAKER MITRAL VALVE REPLACED HEART MURMUR Respiratory: COPD, emphysema, pneumonia Gastrointestinal: NONE Hepatic: NONE Renal: NONE Musculoskeletal: NONE Psychiatric: NONE Endocrine: diabetes, hypothyroidism Blood Disorders: NONE Cancer(s): non-hodgkin lymphoma FIRE LOOKOUT/Reproductive: NONE Surgical History Surgical History: non-contributory, hysterectomy, [facility] mechanical valve Family History Relations & Conditions If Any: Relation not specified for: FHx: breast cancer in first degree relative Psychosocial History Where Do You Live? Home Services at Home: None Smoking Status: Former Smoker ETOH Use: denies use Illicit Drug Use: denies illicit drug use Other Social History: PT HAS A 60 PACK YEAR HISTORY OF SMOKING Functional Ability ADLs Independent: dressing, eating, toileting, bathing. Ambulation: independent IADLs Independent: shopping, housework, finances, food prep, telephone, transportation , medication admin. Exam & Diagnostic Data Last 24 Hrs of Vital Signs/I&O Vital Signs Date Time Temp Pulse Resp B/P B/P Pulse O2 O2 Flow FiO2 Mean Ox Delivery Rate 07/08 1000 71 137/73 07/08 1000 71 136/73 07/08 1000 71 136/73 07/08 1000 98.2 71 18 136/70 07/08 0646 98.2 77 18 136/74 92 Nasal 2.0L Cannula 07/08 0000 Nasal 2.0L Cannula 07/07 2243 98.7 78 18 130/68 93 Nasal 2.5L Cannula 07/07 2200 Nasal 2.0L Cannula 07/07 191 79 134/70 07/07 191 79 134/70 07/07 1912 79 134/70 07/07 1735 98.3 79 18 134/70 94 Nasal 2.5L Cannula 07/07 1622 94 Room Air 07/07 1540 98.1 63 20 139/60 93 Room Air 07/07 1339 98.0 87 20 132/81 94 Room Air Intake & Output 07/08 1600 07/08 0800 07/08 0000 Intake Total 110 300 Output Total Balance 110 300 Intake, IV 10 Intake, Oral 100 300 Patient 134 lb Weight Physical Exam Other Physical Findings: gen awake and alert heent ncat cvs s1, s2 lungs rare rhonchi abd soft, bs+ ext trace edema Last 48 Hrs of Labs/Fransisco: Laboratory Tests 07/08/17614: Troponin I Cancelled 07/08/17614: Anion Gap 10, Estimated GFR 54 L, BUN/Creatinine Ratio 33.0 H, Troponin I 0.04 , PT 24.7 H, INR 2.37 H, CBC w Diff NO MAN DIFF REQ, RBC 3.90 L, MCV 83.6, MCH 27.9, RDW 16.9 H, MPV 9.0, Gran % 87.3 H, Lymphocytes % 7.3 L, Monocytes % 5.3, Eosinophils % 0.1, Basophils % 0, Absolute Granulocytes 6.9 H, Absolute Lymphocytes 0.6 L, Absolute Monocytes 0.4, Absolute Eosinophils 0, Absolute Basophils 0, PUBS MCHC 33.4 07/08/17 0100: Troponin I 0.06 07/07/17 2200: PT 33.0 H, INR 3.18 H 07/07/17 2200: Troponin I 0.05, D-Dimer High Sensitivty < 200 07/07/17 1542: PT Cancelled, INR Cancelled 07/07/17 1228: Anion Gap 12, Estimated GFR > 60, BUN/Creatinine Ratio 30.0 H, Glucose 246 H, Calcium 9.3, Total Bilirubin 0.5, AST 26, ALT 26, Alkaline Phosphatase 91, Troponin I 0.03, Xme-F-Sdwkszlusoa Pept 3520 H, Total Protein 6.7, Albumin 4.3, Globulin 2.4, Albumin/Globulin Ratio 1.8, TSH 0.523, CBC w Diff NO MAN DIFF REQ, RBC 4.43, MCV 82.3, MCH 27.4, RDW 16.4 H, MPV 8.0, Gran % 90.6 H, Lymphocytes % 6.6 L, Monocytes % 2.8, Eosinophils % 0, Basophils % 0, Absolute Granulocytes 4.1, Absolute Lymphocytes 0.3 L, Absolute Monocytes 0.1, Absolute Eosinophils 0 , Absolute Basophils 0, PUBS MCHC 33.2 Assessment/Plan Impression/Plan: 76 year old woman. Known to me from the office. Hx of hemoptysis, resolved. On Coumadin for a.fib. At respiratory baseline. On Symbicort. CT 02/2017 1. There is mildly diminished moderate linear scar/subsegmental atelectasis in the lingula and posterolateral left lower lobe. No central bronchiolar obstruction is seen. Recommend continued attention on follow-up. 2. No focal pulmonary mass, infiltrate or nodule is seen. 3. No sizable mediastinal or hilar adenopathy is seen. 4. A small gallstone is seen. 5. There is left renal atrophy. 6. There is marked diverticulosis, without acute diverticulitis. 7. No splenomegaly is seen. There is no abdominopelvic lymphadenopathy or free fluid. 8. There are small fat-containing bilateral inguinal hernias. 9. There are multi-level thoracolumbar degenerative changes. She has been compliant with her Symbicort and albuterol. Follows with Dr. Huerta. PFTs 2014 show mild obstructive disease and mild reduction in DLCO. She has chronic bronchitis and emphysema. In 2007 diagnosed via bone marrow biopsy to have non-Hodgkin's lymphoma (Splenic Marginal Zone Lymphoma). Has been in remission since treatment at that time. She has been on Rituximab/Fludarabine and CVP in the past. She has an extensive smoking history since the age 20, quit last year and has smoked about 1 pack per day. Hx of CHF. Recent trip to see her son to [place], skipped lasix dose, also daughter was a sick contact with URI. Impression 76 year old woman * excacerbation of CHF and likely mild COPD exacerbation secondary to URI Plan -cardiology (Dr. Huerta) follow up, diuresis -add solumedrol 40mg iv q8h -monitor glucose -trc/nebs -cont a/c -assess o2 needs -out of bed as tolerated -assess for rehab DVT prophylaxis at all times Consult Acknowledgment - Thank you for your consult request.
[2017-07-08 14:17] VITALS: BP 116/58
[2017-07-08 22:00] VITALS: BP 150/64
[2017-07-09 06:57] VITALS: BP 146/78
--- NOTE | 2017-07-09 07:16 | PN- Housestaff ---
See Addendum Subjective Follow-up For: COPD/CHF Subjective: No overnight events. She is still short of breath, not able to speak in full sentences, but continues to progressively feel better. No CP, abd pain, N/V. She does have some chills but no fevers. Review of Systems Constitutional: Reports: see HPI. EENTM: Reports: no symptoms. Cardiovascular: Reports: no symptoms. Respiratory: Reports: see HPI. Gastrointestinal: Reports: no symptoms. Genitourinary: Reports: no symptoms. Musculoskeletal: Reports: no symptoms. Skin: Reports: no symptoms. Neurological/Psychological: Reports: no symptoms. Hematologic/Endocrine: Reports: no symptoms. Immunologic/Allergic: Reports: no symptoms. Objective Last 24 Hrs of Vital Signs/I&O Vital Signs Date Time Temp Pulse Resp B/P B/P Pulse O2 O2 Flow FiO2 Mean Ox Delivery Rate 07/09 0657 97.7 80 22 146/78 94 Nasal Cannula 07/09 0000 94 Nasal 3.0L Cannula 07/08 2200 97.8 86 22 150/64 94 Nasal 3.0L Cannula 07/08 2107 86 150/64 07/08 2000 95 Nasal 3.0L Cannula 07/08 1600 94 Nasal 3.0L Cannula 07/08 1417 98.4 55 24 116/58 95 Nasal 3.0L Cannula 07/08 1345 Nasal 3.0L Cannula 07/08 1334 95 Nasal 1.0L Cannula 07/08 1000 71 137/73 07/08 1000 71 136/73 03 1000 71 136/73 07/08 1000 98.2 71 18 136/70 07/08 0800 92 Nasal 2.0L Cannula Intake & Output 07/09 0800 07/09 0000 07/08 1600 Intake Total 112 128 720 Output Total Balance 112 128 720 Intake, IV 12 8 Intake, Oral 100 120 720 Number 1 Bowel Movements Physical Exam General Appearance: Alert, Oriented X3, Cooperative, unable to speak in full sentences Sepsis Skin Exam (color): Normal for Ethnicity Cardiovascular: irregular Lungs: crackles present, JVD positive Abdomen: Normal Bowel Sounds, Soft, No Tenderness Extremities: Normal Pulses, trace edema Current Medications: Current Medications Sig/Blanquita Start time Last Medication Dose Route Stop Time Status Admin Acetaminophen 650 MG Q6P PRN 07/07 1545 AC PO Acetaminophen 1,000 MG Q6P PRN 07/07 1545 AC IV Albuterol Sulfate 3 ML BID 07/08 2200 AC 07/08 INH 2000 Albuterol Sulfate 2 PUF Q4P PRN 07/08 0216 AC INH Amitriptyline HCl 25 MG AT BEDTIME 07/07 2200 AC 07/08 PO 2107 Amlodipine Besylate 5 MG DAILY 07/08 1000 AC 07/08 PO 1000 Aspirin Buffered 81 MG DAILY 07/07 1545 AC 07/08 PO 1000 Atorvastatin Calcium 60 MG 1700 07/08 1700 AC 07/08 PO 1636 Azithromycin 500 MG DAILY 07/08 1015 AC 07/08 PO 07/10 1001 1635 Budesonide/ 2 PUF BID 07/07 1545 AC 07/08 Formoterol Fumarate INH 2108 Ferrous Sulfate 325 MG DAILY 07/08 1000 AC 07/08 PO 1000 Furosemide 80 MG 7:30 AM, & 4:30 PM 07/08 1630 AC 07/09 PO 0704 Furosemide 80 MG 7:30 AM, & 4:30 PM 07/08 0730 DC 07/08 IV 0832 Insulin Aspart 0 TIDAC 07/07 1600 AC 07/08 SC 0832 Ipratropium [place] 2.5 ML DAILY 07/07 1555 AC INH Isosorbide 60 MG DAILY 07/07 1549 AC 07/08 Mononitrate PO 1000 Levothyroxine Sodium 0.05 MG DAILY AC 07/07 1549 AC 07/09 PO 0705 Losartan Potassium 50 MG DAILY 07/07 1549 AC 07/08 PO 1000 Melatonin 5 MG ONCE ONE 07/08 2245 DC 07/08 PO 07/08 2246 2248 Methylprednisolone 40 MG Q8 07/08 1400 AC 07/09 IV 0706 Metoprolol Tartrate 25 MG BID 07/07 1549 AC 07/08 PO 2107 Potassium Chloride 20 MEQ DAILY 07/08 1000 AC 07/08 PO 1000 Tiotropium [place] 1 PUF DAILY 07/07 1556 AC 07/08 INH 0930 Warfarin Sodium 5 MG COUMADIN 1700 ONE 07/08 1700 CAN PO 07/08 1701 Warfarin Sodium 5 MG COUMADIN 1700 ONE 07/08 1700 CAN PO 07/08 1701 Warfarin Sodium 7.5 MG COUMADIN 1700 ONE 07/08 1700 DC 07/08 PO 07/08 1701 1656 Assessment/Plan Assessment: Ms. Rodriguez is a 76-year-old female with past medical history of congestive heart failure, seizure, mitral valve replacement with [facility] valve, cataracts, atrial fibrillation warfarin, hypertension, hyperlipidemia, pacemaker, COPD followed by Dr. Nails, diabetes mellitus, hypothyroidism, and non-Hodgkin's lymphoma who presents with shortness of breath and weakness. Problem list: 1. COPD exacerbation 2. Upper respiratory infection #COPD exacerbation: D-dimer was negative. Chest x-ray more concerning for COPD although there is likely an element of CHF. Likely caused by a recent upper respiratory infection. EKG and troponins 3 have been negative. She is still more short of breath and I would expect at this point and still not able to speak in full sentences. Her lungs also still sound crackly. Her fluid balance is not impressive, +112 mL in the past 24 hours. She has lost 2 pounds in the past 2 days. However, chest x-ray shows bronchial wall thickening associated with small airway process versus worsening edema. Because her BUN/creatinine are even a little better today, we'll switch her to IV furosemide. -Appreciate Pulmonology recommendations -Appreciate cardiology recommendations -Methylprednisone 40 mg IV every 8 hours -TRC nebulizers -Furosemide 80 mg IV twice a day -Azithromycin 3 days -Follow-up TTE -Daily weights, strict I's and O's #Chronic medical problems: Anemia, hypertension, COPD, hypothyroidism, CAD, hyperlipidemia, depression -Continue home potassium chloride, ferrous sulfate, amlodipine, furosemide, amitriptyline, albuterol, tiotropium, ipratropium, metoprolol, losartan, levothyroxine, isosorbide mononitrate, budesonide/formoterol, atorvastatin, aspirin -Daily INR, dose warfarin -Detemir plus insulin sliding scale DVT prophylaxis with warfarin consistent carbohydrate 2 diet Full code Problem List: 1. COPD (chronic obstructive pulmonary disease) Pain Ratin Pain Location: no pian Pain Goal: Remain pain free Pain Plan: see a/p Tomorrow's Labs & Rationales: bep
--- NOTE | 2017-07-09 09:04 | RADIOLOGY REPORT ---
EXAMINATION: XR CHEST CLINICAL INFORMATION: Persistent shortness of breath COMPARISON: 07/07/2017 TECHNIQUE: 2 views of the chest were obtained. FINDINGS: Right chest wall single-lead pacer with lead overlying the right ventricle. Cardiac valvular hardware in place. Median sternotomy wires appear intact. The lungs are hyperexpanded. There is blunting at the left costophrenic angle which is similar to prior. Increasing bronchial wall thickening. No pneumothorax. The cardiomediastinal silhouette is unchanged, with a calcified aorta. IMPRESSION: Persistent small left pleural effusion. Increasing bronchial wall thickening could be associated with a small airways process or worsening edema.
--- NOTE | 2017-07-09 09:22 | PN- Cardiology ---
Subjective Subjective: Breathing continues to slowly improve. Complaint chest discomfort, palpitations, etc. Remains in atrial fibrillation on telemetry. Objective Vital Signs and I&Os Vital Signs Date Time Temp Pulse Resp B/P B/P Pulse O2 O2 Flow FiO2 Mean Ox Delivery Rate 07/09 0657 97.7 80 22 146/78 94 Nasal Cannula 07/09 0000 94 Nasal 3.0L Cannula 07/08 2200 97.8 86 22 150/64 94 Nasal 3.0L Cannula 07/08 2107 86 150/64 07/08 2000 95 Nasal 3.0L Cannula 07/08 1600 94 Nasal 3.0L Cannula 07/08 1417 98.4 55 24 116/58 95 Nasal 3.0L Cannula 07/08 1345 Nasal 3.0L Cannula 07/08 1334 95 Nasal 1.0L Cannula 07/08 1000 71 137/73 07/08 1000 71 136/73 07/08 1000 71 136/73 07/08 1000 98.2 71 18 136/70 Intake & Output 07/09 1600 07/09 0800 07/09 0000 07/08 1600 07/08 0800 07/08 0000 Intake Total 112 128 720 110 300 Output Total Balance 112 128 720 110 300 Intake, IV 12 8 10 Intake, Oral 100 120 720 100 300 Number 1 Bowel Movements Patient 132 lb 134 lb Weight Physical Exam: Well-developed, well-nourished elderly white female in no acute distress. Vital signs: See above. HEENT: Normocephalic/atraumatic, EOMI, moist mucous membranes. Neck: No JVD, bilateral bruits versus transmitted systolic murmur. Lungs: Decreased breath sounds bilaterally, few bibasilar crackles, and expiratory wheezing. Heart: S1, S2 with appropriate mechanical valve sound and grade 2/6 systolic murmur. Extremities: No edema. Current Medications: Current Medications Sig/Blanquita Start time Last Medication Dose Route Stop Time Status Admin Acetaminophen 650 MG Q6P PRN 07/07 1545 AC PO Acetaminophen 1,000 MG Q6P PRN 07/07 1545 AC IV Albuterol Sulfate 3 ML BID 07/08 2199 AC 07/08 INH 2000 Albuterol Sulfate 2 PUF Q4P PRN 07/08 0216 AC INH Amitriptyline HCl 25 MG AT BEDTIME 07/07 2199 AC 07/08 PO 2106 Amlodipine Besylate 5 MG DAILY 07/08 1000 AC 07/08 PO 1000 Aspirin Buffered 81 MG DAILY 07/07 1545 AC 07/08 PO 1000 Atorvastatin Calcium 60 MG 1700 07/08 1700 AC 07/08 PO 1636 Azithromycin 500 MG DAILY 07/08 1015 AC 07/08 PO 07/10 1001 1635 Budesonide/ 2 PUF BID 07/07 1545 AC 07/08 Formoterol Fumarate INH 2108 Ferrous Sulfate 325 MG DAILY 07/08 1000 AC 07/08 PO 1000 Furosemide 80 MG 7:30 AM, & 4:30 PM 07/08 1630 AC 07/09 PO 0704 Furosemide 80 MG 7:30 AM, & 4:30 PM 07/08 0730 DC 07/08 IV 0832 Insulin Aspart 0 TIDAC 07/07 1600 AC 07/09 SC 0815 Ipratropium [place] 2.5 ML DAILY 07/07 1555 AC INH Isosorbide 60 MG DAILY 07/07 1549 AC 07/08 Mononitrate PO 1000 Levothyroxine Sodium 0.05 MG DAILY AC 07/07 1549 AC 07/09 PO 0705 Losartan Potassium 50 MG DAILY 07/07 1549 AC 07/08 PO 1000 Melatonin 5 MG ONCE ONE 07/08 2245 DC 07/08 PO 07/08 2246 2248 Methylprednisolone 40 MG Q8 07/08 1400 AC 07/09 IV 0706 Metoprolol Tartrate 25 MG BID 07/07 1549 AC 07/08 PO 2107 Potassium Chloride 20 MEQ DAILY 07/08 1000 AC 07/08 PO 1000 Tiotropium [place] 1 PUF DAILY 07/07 1556 AC 07/08 INH 0930 Warfarin Sodium 5 MG COUMADIN 1700 ONE 07/08 1700 CAN PO 07/08 1701 Warfarin Sodium 5 MG COUMADIN 1700 ONE 07/08 1700 CAN PO 07/08 1701 Warfarin Sodium 7.5 MG COUMADIN 1700 ONE 07/08 1700 DC 07/08 PO 07/08 1701 1656 Results Last 48 Hrs of Labs/Mics: Laboratory Tests 07/08/17 0615: Troponin I Cancelled 07/08/17 0615: Anion Gap 10, Estimated GFR 54 L, BUN/Creatinine Ratio 33.0 H, Hemoglobin A1c 6.6 H, Magnesium 2.3, Troponin I 0.04, PT 24.7 H, INR 2.37 H, CBC w Diff NO MAN DIFF REQ, RBC 3.90 L, MCV 83.6, MCH 27.9, RDW 16.9 H, MPV 9.0, Gran % 87.3 H, Lymphocytes % 7.3 L, Monocytes % 5.3, Eosinophils % 0.1, Basophils % 0, Absolute Granulocytes 6.9 H, Absolute Lymphocytes 0.6 L, Absolute Monocytes 0.4, Absolute Eosinophils 0, Absolute Basophils 0, PUBS MCHC 33.4 07/08/17 0100: Troponin I 0.06 07/07/17 2200: PT 33.0 H, INR 3.18 H 07/07/17 2200: Troponin I 0.05, D-Dimer High Sensitivty < 200 07/07/17 1542: PT Cancelled, INR Cancelled 07/07/17 1228: Anion Gap 12, Estimated GFR > 60, BUN/Creatinine Ratio 30.0 H, Glucose 246 H, Calcium 9.3, Total Bilirubin 0.5, AST 26, ALT 26, Alkaline Phosphatase 91, Troponin I 0.03, Vbz-[id number]-Ebpnusemfao Pept 3520 H, Total Protein 6.7, Albumin 4.3, Globulin 2.4, Albumin/Globulin Ratio 1.8, TSH 0.523, CBC w Diff NO MAN DIFF REQ, RBC 4.43, MCV 82.3, MCH 27.4, RDW 16.4 H, MPV 8.0, Gran % 90.6 H, Lymphocytes % 6.6 L, Monocytes % 2.8, Eosinophils % 0, Basophils % 0, Absolute Granulocytes 4.1, Absolute Lymphocytes 0.3 L, Absolute Monocytes 0.1, Absolute Eosinophils 0 , Absolute Basophils 0, PUBS MCHC 33.2 Recent Imaging Studies: CXR 07/09/2016: FINDINGS: Right chest wall single-lead pacer with lead overlying the right ventricle. Cardiac valvular hardware in place. Median sternotomy wires appear intact. The lungs are hyperexpanded. There is blunting at the left costophrenic angle which is similar to prior. Increasing bronchial wall thickening. No pneumothorax. The cardiomediastinal silhouette is unchanged, with a calcified aorta. IMPRESSION: Persistent small left pleural effusion. Increasing bronchial wall thickening could be associated with a small airways process or worsening edema. Assessment/Plan Assessment/Plan 76 [id number] w/ hx hyperthyroidism s/p PTU w/ subsequent hypothyroidism, non- Hodgkin's lymphoma s/p chemo, long-standing tobacco use, COPD with previous hospitalizations for acute exacerbations, pulmonary nodules, left vocal cord paralysis, HTN, HLD, ch AF on warfarin anticoagulation, symptomatic bradycardia w/ pauses & new RBBB s/p ppm 10/13/2009, & RHD/CAD/HFpEF (MS/MR, s/p mitral valvuloplasty 05/1995, s/p MVR [21mm [facility]] & CABG x 1 09/2001) who presented to the ED 03/27/2017 w/ progressive SOB that has improved following management for both an AECOPD and HFpEF. Fortunately, she has had no acute electrocardiographic changes or evidence of myocardial necrosis by serial troponin I determinations. Inputs/outputs inaccurate. 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 Recommendations: * Continue on telemetry with strict inputs/outputs and daily weights. * Continue on her present cardiac regimen, but hold today's diuretic if increased BUN/creatinine on today's blood work. * TRC, oxygen, antimicrobial therapy, steroids, etc. as per hospitalist/ pulmonary medicine. * Will follow-up on echocardiogram. * Note that given the fact she has a mechanical mitral valve prosthesis and atrial fibrillation her goal INR is 2.5-3.5. Awaiting today's INR. * Continue low-dose aspirin therapy. * DVT prophylaxis being addressed by the warfarin anticoagulation. * Outpatient pharmacologic stress testing to exclude an ischemic component to her presentation. Continue telemetry? Yes
[2017-07-09 10:34] LABS: PT 21.3 SEC (9.4-12.5)
--- NOTE | 2017-07-09 12:08 | PN- Pulmonary ---
Subjective HPI/Critical Care Issues: pt seen and examined afebrile mild htn 92% on 3LNC Objective Current Medications: Current Medications Sig/Blanquita Start time Last Medication Dose Route Stop Time Status Admin Acetaminophen 650 MG Q6P PRN 07/07 1545 AC PO Acetaminophen 1,000 MG Q6P PRN 07/07 1545 AC IV Albuterol Sulfate 3 ML BID 07/08 2200 AC 07/09 INH 0926 Albuterol Sulfate 2 PUF Q4P PRN 07/08 0216 AC INH Amitriptyline HCl 25 MG AT BEDTIME 07/07 2200 AC 07/08 PO 2107 Amlodipine Besylate 5 MG DAILY 07/08 1000 AC 07/09 PO 1004 Aspirin Buffered 81 MG DAILY 07/07 1545 AC 07/09 PO 1004 Atorvastatin Calcium 60 MG 1700 07/08 1700 AC 07/08 PO 1636 Azithromycin 500 MG DAILY 07/08 1015 AC 07/09 PO 07/10 1001 1004 Budesonide/ 2 PUF BID 07/07 1545 AC 07/09 Formoterol Fumarate INH 1008 Ferrous Sulfate 325 MG DAILY 07/08 1000 AC 07/09 PO 1004 Furosemide 80 MG 7:30 AM, & 4:30 PM 07/09 1630 AC IV Furosemide 80 MG 7:30 AM, & 4:30 PM 07/08 1630 DC 07/09 PO 0704 Insulin Aspart 0 TIDAC 07/07 1600 AC 07/09 SC 0815 Ipratropium [place] 2.5 ML DAILY 07/07 1555 DC INH Isosorbide 60 MG DAILY 07/07 1549 AC 07/09 Mononitrate PO 1004 Levothyroxine Sodium 0.05 MG DAILY AC 07/07 1549 AC 07/09 PO 0705 Losartan Potassium 50 MG DAILY 07/07 1549 AC 07/09 PO 1004 Melatonin 5 MG ONCE ONE 07/08 2245 DC 07/08 PO 07/08 2246 2248 Methylprednisolone 40 MG Q8 07/08 1400 AC 07/09 IV 0706 Metoprolol Tartrate 25 MG BID 07/07 1549 AC 07/09 PO 1004 Potassium Chloride 20 MEQ DAILY 07/08 1000 AC 07/09 PO 1004 Tiotropium [place] 1 PUF DAILY 07/07 1556 AC 07/09 INH 1007 Warfarin Sodium 7.5 MG COUMADIN 1700 ONE 07/09 1700 AC PO 07/09 1701 Warfarin Sodium 5 MG COUMADIN 1700 ONE 07/08 1700 CAN PO 07/08 1701 Warfarin Sodium 5 MG COUMADIN 1700 ONE 07/08 1700 CAN PO 07/08 1701 Warfarin Sodium 7.5 MG COUMADIN 1700 ONE 07/08 1700 DC 07/08 PO 07/08 1701 1656 Vital Signs & I&O Last 24 Hrs of Vitals and I&O: Vital Signs Date Time Temp Pulse Resp B/P B/P Pulse O2 O2 Flow FiO2 Mean Ox Delivery Rate 07/09 1004 58 162/60 07/09 0929 92 Nasal 3.0L Cannula 07/09 0657 97.7 80 22 146/78 94 Nasal Cannula 07/09 0000 94 Nasal 3.0L Cannula 07/08 2200 97.8 86 22 150/64 94 Nasal 3.0L Cannula 07/08 2107 86 150/64 07/08 2000 95 Nasal 3.0L Cannula 07/08 1600 94 Nasal 3.0L Cannula 07/08 1417 98.4 55 24 116/58 95 Nasal 3.0L Cannula 07/08 1345 Nasal 3.0L Cannula 07/08 1334 95 Nasal 1.0L Cannula Intake & Output 07/09 1600 07/09 0800 07/09 0000 Intake Total 112 128 Output Total Balance 112 128 Intake, IV 12 8 Intake, Oral 100 120 Number 1 Bowel Movements Patient 132 lb Weight Exam Other Physical Findings: gen awake and alert heent ncat cvs s1, s2 lungs rare rhonchi abd soft, bs+ ext trace edema Results Last 24 Hrs of Lab Results: Laboratory Tests 07/09/17 0950: Anion Gap 10, Estimated GFR 54 L, BUN/Creatinine Ratio 32.0 H, PT 21.3 H, INR 2.04 H Impression/Plan Impression/Plan Impression/Plan: Impression 76 year old woman * excacerbation of CHF and likely mild COPD exacerbation secondary to URI Plan -cardiology (Dr. Huerta) follow up, diuresis -reduce solumedrol 40mg iv 12h, plan for po prednisone in am if does well -monitor glucose -trc/nebs -cont a/c -assess o2 needs -out of bed as tolerated -assess for rehab DVT prophylaxis at all times
[2017-07-09 15:28] VITALS: BP 130/76
[2017-07-09 22:25] VITALS: BP 134/64
[2017-07-09 22:53] VITALS: BP 102/60
[2017-07-10 06:18] VITALS: BP 166/72
--- NOTE | 2017-07-10 07:03 | PN- Housestaff ---
See Addendum Subjective Follow-up For: COPD/CHF Tele-Events Since Last Visit: Afib 48-90 Subjective: No overnight events. She feels like she is improving. SOB improving. No CP, abd pain, N/V. Does have chills but no fevers. Review of Systems Constitutional: Reports: see HPI. EENTM: Reports: no symptoms. Cardiovascular: Reports: no symptoms. Respiratory: Reports: see HPI. Gastrointestinal: Reports: no symptoms. Genitourinary: Reports: no symptoms. Musculoskeletal: Reports: no symptoms. Skin: Reports: no symptoms. Neurological/Psychological: Reports: no symptoms. Hematologic/Endocrine: Reports: no symptoms. Immunologic/Allergic: Reports: no symptoms. Objective Last 24 Hrs of Vital Signs/I&O Vital Signs Date Time Temp Pulse Resp B/P B/P Pulse O2 O2 Flow FiO2 Mean Ox Delivery Rate 07/10 617 97.8 44 20 166/72 99 Nasal Cannula 07/10 0000 Nasal 2.0L Cannula 07/09 2253 97.7 90 16 102/60 95 Nasal Cannula 07/09 2225 98.9 70 20 134/64 98 07/09 2132 55 134/64 07/09 1845 97 Nasal 3.0L Cannula 07/09 1600 97 Nasal 2.0L Cannula 07/09 1528 98.1 74 22 130/76 99 Nasal 3.0L Cannula 07/09 1004 58 162/60 07/09 0929 92 Nasal 3.0L Cannula 07/09 0800 Nasal 3.0L Cannula Intake & Output 07/10 0800 07/10 0000 07/09 1600 Intake Total 100 250 480 Output Total 350 1100 600 Balance -250 -850 -120 Intake, Oral 100 250 480 Number 0 Bowel Movements Output, Urine 350 1100 600 Patient 132 lb Weight Physical Exam General Appearance: Alert, Oriented X3, Cooperative, No Acute Distress Skin: No Rashes, No Breakdown, No Significant Lesion Cardiovascular: irregular, JVD Lungs: crackles, better than yesterday Abdomen: Normal Bowel Sounds, Soft, No Tenderness Neurological: Normal Speech Extremities: Normal Pulses, trace edema Current Medications: Current Medications Sig/Blanquita Start time Last Medication Dose Route Stop Time Status Admin Acetaminophen 650 MG Q6P PRN 07/07 1545 AC PO Acetaminophen 1,000 MG Q6P PRN 07/07 1545 AC IV Albuterol Sulfate 3 ML BID 07/08 2200 AC 07/09 INH 1845 Albuterol Sulfate 2 PUF Q4P PRN 07/08 0216 AC INH Amitriptyline HCl 25 MG AT BEDTIME 07/07 2200 AC 07/09 PO 2129 Amlodipine Besylate 5 MG DAILY 07/08 1000 AC 07/09 PO 1004 Aspirin Buffered 81 MG DAILY 07/07 1545 AC 07/09 PO 1004 Atorvastatin Calcium 60 MG 1700 07/08 1700 AC 07/09 PO 1846 Azithromycin 500 MG DAILY 07/08 1015 AC 07/09 PO 07/10 1001 1004 Budesonide/ 2 PUF BID 07/07 1545 AC 07/09 Formoterol Fumarate INH 2129 Ferrous Sulfate 325 MG DAILY 07/08 1000 AC 07/09 PO 1004 Furosemide 40 MG TID 07/10 1000 AC IV Furosemide 80 MG ONCE ONE 07/09 1700 DC 07/09 IV 07/09 1701 1846 Furosemide 80 MG 7:30 AM, & 4:30 PM 07/09 1630 DC IV Furosemide 80 MG 7:30 AM, & 4:30 PM 07/08 1630 DC 07/09 PO 0704 Insulin Aspart 0 TIDAC 07/07 1600 AC 07/09 SC 1846 Ipratropium [place] 2.5 ML DAILY 07/07 1555 DC INH Isosorbide 60 MG DAILY 07/07 1549 AC 07/09 Mononitrate PO 1004 Levothyroxine Sodium 0.05 MG DAILY AC 07/07 1549 AC 07/10 PO 0546 Losartan Potassium 50 MG DAILY 07/07 1549 AC 07/09 PO 1004 Methylprednisolone 40 MG Q12 07/09 2200 AC 07/09 IV 2128 Methylprednisolone 40 MG Q8 07/08 1400 DC 07/09 IV 0706 Metoprolol Tartrate 25 MG BID 07/07 1549 AC 07/09 PO 2132 Potassium Chloride 20 MEQ DAILY 07/08 1000 AC 07/09 PO 1004 Tiotropium [place] 1 PUF DAILY 07/07 1556 AC 07/09 INH 1007 Warfarin Sodium 7.5 MG COUMADIN 1700 ONE 07/09 1700 DC 07/09 PO 07/09 1701 1847 Zolpidem Tartrate 5 MG AT BEDTIME 07/09 2200 AC 07/09 PO 2128 Last 24 Hrs of Lab/[place] Results Last 24 Hrs of Labs/Mics: Laboratory Tests 07/09/17 0950: Anion Gap 10, Estimated GFR 54 L, BUN/Creatinine Ratio 32.0 H, PT 21.3 H, INR 2.04 H Microbiology 07/09 1353 NASOPHARYN: Influenza Virus A & B Rapid Smear - COMP Assessment/Plan Assessment: Ms. Rodriguez is a 76-year-old female with past medical history of congestive heart failure, seizure, mitral valve replacement with [facility] valve, cataracts, atrial fibrillation warfarin, hypertension, hyperlipidemia, pacemaker, COPD followed by Dr. Nails, diabetes mellitus, hypothyroidism, and non-Hodgkin's lymphoma who presented with shortness of breath and weakness. Problem list: 1. COPD exacerbation 2. Upper respiratory infection 3. CHF #COPD exacerbation/CHF: D-dimer was negative. Chest x-ray more concerning for COPD although there is likely an element of CHF. Likely caused by a recent upper respiratory infection. EKG and troponins 3 have been negative. Her breathing is improving but her voice is still hoarse, potentially from laryngitis. Her lungs are crackly but improving. She did not lose any weight yesterday. TTE revealed EF 50%, RV pressure 47 mmHg, and severe aortic stenosis. -Appreciate Pulmonology recommendations -Appreciate cardiology recommendations -Pred 40mg QD -TRC nebulizers -Furosemide 40 mg IV TID -Azithromycin 3 days -Daily weights, strict I's and O's #Chronic medical problems: Anemia, hypertension, COPD, hypothyroidism, CAD, hyperlipidemia, depression -Continue home potassium chloride, ferrous sulfate, amlodipine, furosemide, amitriptyline, albuterol, tiotropium, ipratropium, metoprolol, losartan, levothyroxine, isosorbide mononitrate, budesonide/formoterol, atorvastatin, aspirin -Daily INR, dose warfarin, goal 2.5-3.5 -Detemir plus insulin sliding scale DVT prophylaxis with warfarin consistent carbohydrate 2 diet Full code Problem List: 1. COPD (chronic obstructive pulmonary disease) 2. CHF (congestive heart failure) Pain Ratin Pain Location: no pain Pain Goal: Remain pain free Pain Plan: see a/p Tomorrow's Labs & Rationales: bep, inr
[2017-07-10 08:24] LABS: PT 30.9 SEC (9.4-12.5)
--- NOTE | 2017-07-10 08:50 | ECHOCARDIOGRAM REPORT ---
OJ ENCINAS Age: 76 : 1940 Gender: F Exam Date: 07/09/2017 10:46 Exam Location: [facility] Ht (in): 63 Wt (lb): 134 BSA: 1.65 BP: 146 / 78 Ordering Physician: Martin Newsome MD Referring Physician: Martin Newsome MD Technologist: Dwight Zurita KATIE Room Number: Indications: HEART FAILURE Rhythm: Atrial flutter Technical Quality: fair FINDINGS Left Ventricle Normal left ventricular size with moderate left ventricular hypertrophy. Low normal systolic function with distal septal hypkinesis. The ejection fraction is visually estimated at 50%. Right Ventricle The right ventricle is normal in size and function. Right Atrium The right atrium is mildly enlarged. Left Atrium The left atrium is severely enlarged. The interatrial septum is intact. Mitral Valve The mitral valve is repaired with normal function. There is mild mitral regurgitation. Aortic Valve Thickened and sclerotic aortic valve without severe stenosis. There is mild aortic regurgitation. Tricuspid Valve The tricuspid valve is normal in structure and function. There is moderate tricuspid regurgitation. Pulmonary artery systolic pressure is moderately elevated to 47mmHg. Pulmonic Valve Structurally normal pulmonic valve. There is mild pulmonic regurgitation. Pericardium Normal pericardium without effusion. No pleural effusion. Great Vessels Normal aortic root dimension. The aortic arch and great vessels are not seen. CONCLUSIONS 1. Low normal EF of 50% with distal septal hypokinesis. 2. Mild right atrial and severe left atrial enlargement. 3. Moderate left ventricular hypertrophy. 4. Mild mitral regurgitation. The patient appears to have had a mitral valve repair. 5. Moderate tricuspid regurgitation. 6. Severe aortic stenosis with mild aortic regurgitation. 7. Mild pulmonic regurgitation. 8. Moderate pulmonary hypertension. Davi Braga M.D. (Electronically Signed) Final Date: 10 July 2017 08:50 MEASUREMENTS (Male / Female) Normal Values 2D ECHO LV Diastolic Diameter PLAX 3.7 cm 4.2 - 5.9 / 3.9 - 5.3 cm LV Systolic Diameter PLAX 2.7 cm 2.1 - 4.0 cm LV Fractional Shortening PLAX 27.0 % 25 - 46 % LV Ejection Fraction 2D Teich 53.5 % IVS Diastolic Thickness 1.6 cm LVPW Diastolic Thickness 1.6 cm LV Relative Wall Thickness 0.9 RV Internal Dim ED PLAX 3.1 cm 1.9 - 3.8 cm LVOT Diameter 1.8 cm Aortic Root Diameter 2.5 cm LA Systolic Diameter LX 7.2 cm 3.0 - 4.0 / 2.7 - 3.8 cm LA Volume 143.0 cm 18 - 58 / 22 - 52 cm Ascending Aorta Diameter 3.3 cm DOPPLER AV Peak Velocity 332.0 cm/s AV Peak Gradient 44.1 mmHg AV Mean Velocity 229.0 cm/s AV Mean Gradient 24.0 mmHg AV Velocity Time Integral 95.3 cm AI Deceleration [place] 204.0 cm/s AI Peak Velocity 445.0 cm/s AI Pressure Half Time 638.0 ms AI Peak Gradient 79.2 mmHg LVOT Peak Velocity 77.9 cm/s LVOT Peak Gradient 2.4 mmHg LVOT Mean Velocity 52.0 cm/s LVOT Mean Gradient 1.0 mmHg LVOT Velocity Time Integral 21.4 cm LVOT Stroke Volume 54.5 cm AV Area Cont Eq vti 0.6 cm AV Area Cont Eq pk 0.6 cm MV Peak Velocity 201.0 cm/s MV Peak Gradient 16.2 mmHg MV Mean Velocity 79.0 cm/s MV Mean Gradient 4.0 mmHg Mitral E Point Velocity 207.0 cm/s MV PHT Velocity 205.0 cm/s MV Deceleration [place] 671.0 cm/s MV Pressure Half Time 91.7 ms MV Area PHT 2.4 cm MV Deceleration Time 250.0 ms TR Peak Velocity 323.0 cm/s TR Peak Gradient 41.7 mmHg Right Atrial Pressure 10.0 mmHg Pulmonary Artery Systolic Pressu 51.7 mmHg Right Ventricular Systolic Press 51.7 mmHg PV Peak Velocity 96.5 cm/s PV Peak Gradient 3.7 mmHg PV Mean Velocity 64.1 cm/s PV Mean Gradient 2.0 mmHg PV Velocity Time Integral 15.1 cm LV E' Lateral Velocity 7.5 cm/s Mitral E to LV E' Lateral Ratio 27.6 LV E' Septal Velocity 8.3 cm/s Mitral E to LV E' Septal Ratio 25.0
--- NOTE | 2017-07-10 10:20 | PN- Pulmonary ---
Subjective HPI/Critical Care Issues: pt seen and examined feeling better still on o2 Objective Current Medications: Current Medications Sig/Blanquita Start time Last Medication Dose Route Stop Time Status Admin Acetaminophen 650 MG Q6P PRN 07/07 1545 AC PO Acetaminophen 1,000 MG Q6P PRN 07/07 1545 AC IV Albuterol Sulfate 3 ML BID 07/08 2200 AC 07/10 INH 0844 Albuterol Sulfate 2 PUF Q4P PRN 07/08 0216 AC INH Amitriptyline HCl 25 MG AT BEDTIME 07/07 2200 AC 07/09 PO 2129 Amlodipine Besylate 5 MG DAILY 07/08 1000 AC 07/10 PO 0829 Aspirin Buffered 81 MG DAILY 07/07 1545 AC 07/10 PO 0828 Atorvastatin Calcium 60 MG 1700 07/08 1700 AC 07/09 PO 1846 Azithromycin 500 MG DAILY 07/08 1015 DC 07/10 PO 07/10 1001 0829 Budesonide/ 2 PUF BID 07/07 1545 AC 07/10 Formoterol Fumarate INH 0830 Ferrous Sulfate 325 MG DAILY 07/08 1000 AC 07/10 PO 0828 Furosemide 40 MG TID 07/10 1000 AC 07/10 IV 0830 Furosemide 80 MG ONCE ONE 07/09 1700 DC 07/09 IV 07/09 1701 1846 Furosemide 80 MG 7:30 AM, & 4:30 PM 07/09 1630 DC IV Furosemide 80 MG 7:30 AM, & 4:30 PM 07/08 1630 DC 07/09 PO 0704 Insulin Aspart 0 TIDAC 07/07 1600 AC 07/10 SC 0830 Ipratropium [place] 2.5 ML DAILY 07/07 1555 DC INH Isosorbide 60 MG DAILY 07/07 1549 AC 07/10 Mononitrate PO 0828 Levothyroxine Sodium 0.05 MG DAILY AC 07/07 1549 AC 07/10 PO 0546 Losartan Potassium 50 MG DAILY 07/07 1549 AC 07/10 PO 0828 Methylprednisolone 40 MG Q12 07/09 2200 DC 07/10 IV 0830 Methylprednisolone 40 MG Q8 07/08 1400 DC 07/09 IV 0706 Metoprolol Tartrate 25 MG BID 07/07 1549 AC 07/10 PO 0829 Potassium Chloride 20 MEQ DAILY 07/08 1000 AC 07/10 PO 0829 Prednisone 40 MG DAILY 07/11 1000 AC PO Tiotropium [place] 1 PUF DAILY 07/07 1556 AC 07/10 INH 0830 Warfarin Sodium 5 MG COUMADIN 1700 ONE 07/10 1700 AC PO 07/10 1701 Warfarin Sodium 7.5 MG COUMADIN 1700 ONE 07/09 1700 DC 07/09 PO 07/09 1701 1847 Zolpidem Tartrate 5 MG AT BEDTIME 07/09 2200 AC 07/09 PO 2128 Vital Signs & I&O Last 24 Hrs of Vitals and I&O: Vital Signs Date Time Temp Pulse Resp B/P B/P Pulse O2 O2 Flow FiO2 Mean Ox Delivery Rate 07/10 0845 93 Nasal 2.0L Cannula 07/10 08 68 166/72 07/10 0828 68 166/72 07/10 0828 68 166/72 07/10 0800 91 Nasal 2.0L Cannula 07/10 0618 97.8 44 20 166/72 99 Nasal Cannula 07/10 0000 Nasal 2.0L Cannula 07/09 2253 97.7 90 16 102/60 95 Nasal Cannula 07/09 2225 98.9 70 20 134/64 98 07/09 2132 55 134/64 07/09 1845 97 Nasal 3.0L Cannula 07/09 1600 97 Nasal 2.0L Cannula 07/09 1528 98.1 74 22 130/76 99 Nasal 3.0L Cannula Intake & Output 07/10 1600 07/10 0800 07/10 0000 Intake Total 100 250 Output Total 350 1100 Balance -250 -850 Intake, Oral 100 250 Number 0 Bowel Movements Output, Urine 350 1100 Patient 132 lb Weight Weight Chair scale Measurement Method Exam Other Physical Findings: gen awake and alert heent ncat cvs s1, s2 lungs rare rhonchi abd soft, bs+ ext trace edema Results Last 24 Hrs of Lab Results: Laboratory Tests 07/10/17 0750: PT 30.9 H, INR 2.97 H 07/10/17 0630: Anion Gap 10, Estimated GFR 54 L, BUN/Creatinine Ratio 33.0 H Impression/Plan Impression/Plan Impression/Plan: Impression 76 year old woman * excacerbation of CHF and likely mild COPD exacerbation secondary to URI Plan -cardiology (Dr. Huerta) follow up, diuresis -cont solumedrol 40mg iv 12h, 07/11 begin prednisone 40mg will taper with you -monitor glucose -trc/nebs -cont a/c -assess o2 needs -out of bed as tolerated -assess for rehab DVT prophylaxis at all times
--- NOTE | 2017-07-10 11:15 | PN- Cardiology ---
Subjective Subjective: "Better". Admits to cough productive of yellowish sputum. Objective Vital Signs and I&Os Vital Signs Date Time Temp Pulse Resp B/P B/P Pulse O2 O2 Flow FiO2 Mean Ox Delivery Rate 07/10 0845 93 Nasal 2.0L Cannula 07/10 0829 68 166/72 07/10 0828 68 166/72 07/10 0828 68 166/72 07/10 0800 91 Nasal 2.0L Cannula 07/10 0618 97.8 44 20 166/72 99 Nasal Cannula 07/10 0000 Nasal 2.0L Cannula 07/09 2253 97.7 90 16 102/60 95 Nasal Cannula 07/09 2225 98.9 70 20 134/64 98 07/09 2132 55 134/64 07/09 1845 97 Nasal 3.0L Cannula 07/09 1600 97 Nasal 2.0L Cannula 07/09 1528 98.1 74 22 130/76 99 Nasal 3.0L Cannula Intake & Output 07/10 1600 07/10 0800 07/10 0000 07/09 1600 07/09 0807/09 0000 Intake Total 100 250 480 112 128 Output Total 350 1100 600 Balance -250 -850 -120 112 128 Intake, IV 12 8 Intake, Oral 100 250 480 100 120 Number 0 1 Bowel Movements Output, Urine 350 1100 600 Patient 132 lb 132 lb Weight Weight Chair scale Measurement Method Physical Exam: Well-developed, well-nourished elderly white female in no acute distress. Vital signs: See above. HEENT: Normocephalic/atraumatic, EOMI, moist mucous membranes. Neck: No JVD, bilateral bruits versus transmitted systolic murmur. Lungs: Decreased breath sounds bilaterally, few bibasilar crackles, and expiratory wheezing. Heart: S1, S2 with appropriate mechanical valve sound and grade 2/6 systolic murmur. Abdomen: Soft, nontender, positive bowel sounds. Extremities: No edema. Current Medications: Current Medications Sig/Blanquita Start time Last Medication Dose Route Stop Time Status Admin Acetaminophen 650 MG Q6P PRN 07/07 1545 AC PO Acetaminophen 1,000 MG Q6P PRN 07/07 1545 AC IV Albuterol Sulfate 3 ML BID 07/08 2200 AC 07/10 INH 0844 Albuterol Sulfate 2 PUF Q4P PRN 07/08 0216 AC INH Amitriptyline HCl 25 MG AT BEDTIME 07/07 2200 AC 07/09 PO 2129 Amlodipine Besylate 5 MG DAILY 07/08 1000 AC 07/10 PO 0829 Aspirin Buffered 81 MG DAILY 07/07 1545 AC 07/10 PO 0828 Atorvastatin Calcium 60 MG 1700 07/08 1700 AC 07/09 PO 1846 Azithromycin 500 MG DAILY 07/08 1015 DC 07/10 PO 07/10 1001 0829 Budesonide/ 2 PUF BID 07/07 1545 AC 07/10 Formoterol Fumarate INH 0830 Ferrous Sulfate 325 MG DAILY 07/08 1000 AC 07/10 PO 0828 Furosemide 40 MG TID 07/10 1000 AC 07/10 IV 0830 Furosemide 80 MG ONCE ONE 07/09 1700 DC 07/09 IV 07/09 1701 1846 Furosemide 80 MG 7:30 AM, & 4:30 PM 07/09 1630 DC IV Furosemide 80 MG 7:30 AM, & 4:30 PM 07/08 1630 DC 07/09 PO 0704 Insulin Aspart 0 TIDAC 07/07 1600 AC 07/10 SC 0830 Isosorbide 60 MG DAILY 07/07 1549 AC 07/10 Mononitrate PO 0828 Levothyroxine Sodium 0.05 MG DAILY AC 07/07 1549 AC 07/10 PO 0546 Losartan Potassium 50 MG DAILY 07/07 1549 AC 07/10 PO 0828 Methylprednisolone 40 MG Q12 07/09 2200 DC 07/10 IV 0830 Methylprednisolone 40 MG Q8 07/08 1400 DC 07/09 IV 0706 Metoprolol Tartrate 25 MG BID 07/07 1549 AC 07/10 PO 0829 Potassium Chloride 20 MEQ DAILY 07/08 1000 AC 07/10 PO 0829 Prednisone 40 MG DAILY 07/11 1000 AC PO Tiotropium [place] 1 PUF DAILY 07/07 1556 AC 07/10 INH 0830 Warfarin Sodium 5 MG COUMADIN 1700 ONE 07/10 1700 AC PO 07/10 1701 Warfarin Sodium 7.5 MG COUMADIN 1700 ONE 07/09 1700 DC 07/09 PO 07/09 1701 1847 Zolpidem Tartrate 5 MG AT BEDTIME 07/09 2200 AC 07/09 PO 2128 Results Last 48 Hrs of Labs/Mics: Laboratory Tests 07/10/17 0750: PT 30.9 H, INR 2.97 H 07/10/17 0630: Anion Gap 10, Estimated GFR 54 L, BUN/Creatinine Ratio 33.0 H 07/09/17 0950: Anion Gap 10, Estimated GFR 54 L, BUN/Creatinine Ratio 32.0 H, PT 21.3 H, INR 2.04 H Microbiology 07/09 1353 NASOPHARYN: Influenza Virus A & B Rapid Smear - COMP Recent Imaging Studies: Echocardiogram 07/08/2016: 1. Low normal EF of 50% with distal septal hypokinesis. 2. Mild right atrial and severe left atrial enlargement. 3. Moderate left ventricular hypertrophy. 4. Mild mitral regurgitation. The patient appears to have had a mitral valve repair. 5. Moderate tricuspid regurgitation. 6. Severe aortic stenosis with mild aortic regurgitation. 7. Mild pulmonic regurgitation. 8. Moderate pulmonary hypertension. Assessment/Plan Assessment/Plan 76 [id number] w/ hx hyperthyroidism s/p PTU w/ subsequent hypothyroidism, non- Hodgkin's lymphoma s/p chemo, long-standing tobacco use, COPD with previous hospitalizations for acute exacerbations, pulmonary nodules, left vocal cord paralysis, HTN, HLD, ch AF on warfarin, symptomatic bradycardia w/ pauses & new RBBB s/p ppm 10/13/2009, & RHD/CAD/HFpEF (MS/MR, s/p mitral valvuloplasty 1994, s/p MVR [21mm [facility]] & CABG x 1 09/2001) who presented to the ED w/ progressive SOB that has improved following management for both an AECOPD and HFpEF. Fortunately, she has had no acute electrocardiographic changes or evidence of myocardial necrosis by serial troponin I determinations. Inputs/outputs inaccurate. 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 Recommendations: * Continue on telemetry with strict inputs/outputs and daily weights. * Continue on her present cardiac regimen. * TRC, oxygen, antimicrobial therapy, steroids, etc. as per hospitalist/ pulmonary medicine. * Note that given the fact she has a mechanical mitral valve prosthesis and atrial fibrillation her goal INR is 2.5-3.5. Today's INR therapeutic at 2.97. * Continue low-dose aspirin therapy. * Review echocardiogram in regard to degree of aortic stenosis. * DVT prophylaxis being addressed by the warfarin anticoagulation. * Outpatient pharmacologic stress testing to exclude an ischemic component to her presentation. Continue telemetry? Yes
[2017-07-10 14:22] VITALS: BP 140/60
[2017-07-10 22:15] VITALS: BP 146/80
[2017-07-11 06:50] VITALS: BP 150/76
--- NOTE | 2017-07-11 08:53 | PN- Housestaff ---
Carlos RODRÍGUEZ,[facility] 07/11/17 0852: Subjective Follow-up For: COPD/CHF Tele-Events Since Last Visit: Afib rate controlled Subjective: Patient seen and examined. Reports improvement in respiratory symptoms. Denies shortness of breath chest pain fever and chills. Overall patient feels that she is feeling much better Review of Systems Constitutional: Denies: see HPI. Objective Last 24 Hrs of Vital Signs/I&O Vital Signs Date Time Temp Pulse Resp B/P B/P Pulse O2 O2 Flow FiO2 Mean Ox Delivery Rate 07/11 0945 144/72 07/11 0945 144/72 07/11 0944 144/72 07/11 0944 144/72 07/11 0903 94 Nasal 1.0L Cannula 07/11 0837 94 Nasal 1.0L Cannula 07/11 0650 97.5 84 18 150/76 94 Nasal 1.0L Cannula 07/11 0000 Nasal 1.0L Cannula 07/10 2215 98.0 86 20 146/80 96 Nasal 1.0L Cannula 07/10 2210 70 162/84 07/10 1830 94 Nasal 1.0L Cannula 07/10 1615 96 Nasal 1.0L Cannula 07/10 1600 96 Nasal 1.0L Cannula Intake & Output 07/11 1600 07/11 0800 07/11 0000 Intake Total 150 400 Output Total 400 950 Balance -250 -550 Intake, Oral 150 400 Output, Urine 400 950 Patient 131 lb Weight Physical Exam General Appearance: Alert, Oriented X3, Cooperative Cardiovascular: irregular Lungs: crackels Neurological: Normal Speech Current Medications: Current Medications Sig/Blanquita Start time Last Medication Dose Route Stop Time Status Admin Acetaminophen 650 MG Q6P PRN 07/07 1545 AC 07/10 PO 1220 Acetaminophen 1,000 MG Q6P PRN 07/07 1545 AC IV Albuterol Sulfate 3 ML BID 07/08 2200 AC 07/11 INH 0814 Albuterol Sulfate 2 PUF Q4P PRN 07/08 0216 AC INH Amitriptyline HCl 25 MG AT BEDTIME 07/07 2199 AC 07/10 PO 2210 Amlodipine Besylate 5 MG DAILY 07/08 1000 AC 07/11 PO 0945 Aspirin Buffered 81 MG DAILY 07/07 1545 AC 07/11 PO 0945 Atorvastatin Calcium 60 MG 1700 07/08 1700 AC 07/10 PO 1616 Budesonide/ 2 PUF BID 07/07 1545 AC 07/11 Formoterol Fumarate INH 0949 Ferrous Sulfate 325 MG DAILY 07/08 1000 AC 07/11 PO 0945 Furosemide 40 MG TID 07/10 1000 AC 07/11 IV 0950 Insulin Aspart 0 TIDAC 07/07 1600 AC 07/11 SC 0814 Isosorbide 60 MG DAILY 07/07 1549 AC 07/11 Mononitrate PO 0944 Levothyroxine Sodium 0.05 MG DAILY AC 07/07 1549 AC 07/11 PO 0617 Losartan Potassium 50 MG DAILY 07/07 1549 AC 07/11 PO 0944 Methylprednisolone 40 MG ONCE ONE 07/10 1700 DC 07/10 IV 07/10 1701 1616 Metoprolol Tartrate 25 MG BID 07/07 1549 AC 07/11 PO 0945 Potassium Chloride 20 MEQ DAILY 07/08 1000 AC 07/11 PO 0945 Prednisone 40 MG DAILY 07/11 1000 AC 07/11 PO 0944 Sodium Chloride 2 SPRAY Q4P PRN 07/10 1130 AC 07/10 JING 1319 Tiotropium [place] 1 PUF DAILY 07/07 1556 AC 07/11 INH 0949 Warfarin Sodium 5 MG COUMADIN 1700 ONE 07/11 1700 AC PO 07/11 1701 Warfarin Sodium 5 MG COUMADIN 1700 ONE 07/10 1700 DC 07/10 PO 07/10 1701 1616 Zolpidem Tartrate 5 MG AT BEDTIME 07/09 2200 AC 07/10 PO 2210 Last 24 Hrs of Lab/[place] Results Last 24 Hrs of Labs/Mics: Laboratory Tests 07/11/17 0620: Anion Gap 11, Estimated GFR 48 L, BUN/Creatinine Ratio 36.4 H Assessment/Plan Assessment: Ms. Rodriguez is a 76-year-old female with past medical history of congestive heart failure, seizure, mitral valve replacement with [facility] valve, cataracts, atrial fibrillation warfarin, hypertension, hyperlipidemia, pacemaker, COPD followed by Dr. Nails, diabetes mellitus, hypothyroidism, and non-Hodgkin's lymphoma who presented with shortness of breath and weakness. Problem list: 1. COPD exacerbation 2. Upper respiratory infection 3. CHF #COPD exacerbation/CHF: D-dimer was negative. Chest x-ray more concerning for COPD although there is likely an element of CHF. Likely caused by a recent upper respiratory infection. EKG and troponins 3 have been negative. Her breathing is improving but her voice is still hoarse, potentially from laryngitis. Her lungs are crackly but improving. She did not lose any weight yesterday. TTE revealed EF 50%, RV pressure 47 mmHg, and severe aortic stenosis. -Appreciate Pulmonology recommendations -Appreciate cardiology recommendations -Prednisone taper 40mg x 3 days, 30x3, 20x3, 10x3, 5x3 then stop -TRC nebulizers -Furosemide 40 mg TID switched to oral -Azithromycin 3 days -Daily weights, strict I's and O's #Chronic medical problems: Anemia, hypertension, COPD, hypothyroidism, CAD, hyperlipidemia, depression -Continue home potassium chloride, ferrous sulfate, amlodipine, furosemide, amitriptyline, albuterol, tiotropium, ipratropium, metoprolol, losartan, levothyroxine, isosorbide mononitrate, budesonide/formoterol, atorvastatin, aspirin -Daily INR, dose warfarin, goal 2.5-3.5 -Detemir plus insulin sliding scale DVT prophylaxis with warfarin consistent carbohydrate 2 diet Full code Problem List: 1. CHF (congestive heart failure) Pain Ratin Pain Location: n/a Pain Goal: Pain 4 or less Pain Plan: as ordered Tomorrow's Labs & Rationales: bep INR Garrick Peters 07/11/17 1323: Attending MD Review Statement Attending Statement Attending MD Statement: examined this patient, discuss w/resident/PA/WOLF HUNTER, agreed w/resident/PA/WOLF HUNTER, discussed with family, reviewed EMR data (avail), discussed with nursing, discussed with case mgmt, reviewed images, amended to note Attending Assessment/Plan: Pt seen and examined at bedside. Cardiology and pulmonary following. CHF exacerbation- echo reviewed. switch to po lasix. f/u cardiology. Acute copd exacerbation- taper prednisone as per pulmonary Headache- better with humidified oxygen and on saline nasal spray. d/w pt the care plan.
--- NOTE | 2017-07-11 12:31 | PN- Cardiology ---
Subjective Subjective: * Patient is breathing better but not quite to baseline and has significant wheezing. She is slightly lightheaded. * Paced rhythm * INR is 2.97 Objective Vital Signs and I&Os Vital Signs Date Time Temp Pulse Resp B/P B/P Pulse O2 O2 Flow FiO2 Mean Ox Delivery Rate 07/11 0945 144/72 07/11 0945 144/72 07/11 0944 144/72 07/11 0944 144/72 07/11 0903 94 Nasal 1.0L Cannula 07/11 0837 94 Nasal 1.0L Cannula 07/11 0650 97.5 84 18 150/76 94 Nasal 1.0L Cannula 07/11 0000 Nasal 1.0L Cannula 07/10 2215 98.0 86 20 146/80 96 Nasal 1.0L Cannula 07/10 2210 70 162/84 07/10 1830 94 Nasal 1.0L Cannula 07/10 1615 96 Nasal 1.0L Cannula 07/10 1600 96 Nasal 1.0L Cannula 07/10 1422 98.7 58 20 140/60 94 Nasal 2.0L Cannula Intake & Output 07/11 1600 07/11 0800 07/11 0000 07/10 1600 07/10 0800 07/10 0000 Intake Total 150 400 580 100 250 Output Total 400 950 210 905 2054 Balance -250 -550 280 -250 -850 Intake, Oral 150 400 580 100 250 Number 0 0 Bowel Movements Output, Urine 400 950 200 764 1543 Patient 132 lb Weight Weight Chair scale Measurement Method Physical Exam: General: WD/WN female in NAD; alert and oriented x 3 HEENT: NC/AT, PERRL, EOMI Neck: no JVD Heart: RRR with 2/6 systolic murmur Lungs: decreased air movement and wheezing bilaterally Extremties: no edema Assessment/Plan Assessment/Plan * Continue current drug regimen and treat for her exacerbation of COPD. I would not overdiurese due to her slightly rising creatinine and a feeling of lightheadedness. In the setting of sever aortic stenosis overdiuresis is often poorly tolerated. Continue telemetry? Yes
--- NOTE | 2017-07-11 13:04 | PN- Pulmonary ---
Subjective HPI/Critical Care Issues: Patient seen and examined. She continues to improve her respiratory status and is feeling better today. Objective Current Medications: Current Medications Sig/Blanquita Start time Last Medication Dose Route Stop Time Status Admin Acetaminophen 650 MG Q6P PRN 07/07 1545 AC 07/10 PO 1220 Acetaminophen 1,000 MG Q6P PRN 07/07 1545 AC IV Albuterol Sulfate 3 ML BID 07/08 2200 AC 07/11 INH 0814 Albuterol Sulfate 2 PUF Q4P PRN 07/08 0216 AC INH Amitriptyline HCl 25 MG AT BEDTIME 07/07 2200 AC 07/10 PO 2210 Amlodipine Besylate 5 MG DAILY 07/08 1000 AC 07/11 PO 0945 Aspirin Buffered 81 MG DAILY 07/07 1545 AC 07/11 PO 0945 Atorvastatin Calcium 60 MG 1700 07/08 1700 AC 07/10 PO 1616 Budesonide/ 2 PUF BID 07/07 1545 AC 07/11 Formoterol Fumarate INH 0949 Ferrous Sulfate 325 MG DAILY 07/08 1000 AC 07/11 PO 0945 Furosemide 40 MG TID 07/10 1000 AC 07/11 IV 0950 Insulin Aspart 0 TIDAC 07/07 1600 AC 07/11 SC 0814 Isosorbide 60 MG DAILY 07/07 1549 AC 07/11 Mononitrate PO 0944 Levothyroxine Sodium 0.05 MG DAILY AC 07/07 1549 AC 07/11 PO 0617 Losartan Potassium 50 MG DAILY 07/07 1549 AC 07/11 PO 0944 Methylprednisolone 40 MG ONCE ONE 07/10 1700 DC 07/10 IV 07/10 1701 1616 Metoprolol Tartrate 25 MG BID 07/07 1549 AC 07/11 PO 0945 Potassium Chloride 20 MEQ DAILY 07/08 1000 AC 07/11 PO 0945 Prednisone 40 MG DAILY 07/11 1000 AC 07/11 PO 0944 Sodium Chloride 2 SPRAY Q4P PRN 07/10 1130 AC 07/10 JING 1319 Tiotropium [place] 1 PUF DAILY 07/07 1556 AC 07/11 INH 0949 Warfarin Sodium 5 MG COUMADIN 1700 ONE 07/11 1700 AC PO 07/11 1701 Warfarin Sodium 5 MG COUMADIN 1700 ONE 07/10 1700 DC 07/10 PO 07/10 1701 1616 Zolpidem Tartrate 5 MG AT BEDTIME 07/09 2200 AC 07/10 PO 2210 Vital Signs & I&O Last 24 Hrs of Vitals and I&O: Vital Signs Date Time Temp Pulse Resp B/P B/P Pulse O2 O2 Flow FiO2 Mean Ox Delivery Rate 07/11 0945 144/72 07/11 0945 144/72 07/11 0944 144/72 07/11 0944 144/72 07/11 0903 94 Nasal 1.0L Cannula 07/11 0837 94 Nasal 1.0L Cannula 07/11 0650 97.5 84 18 150/76 94 Nasal 1.0L Cannula 07/11 0000 Nasal 1.0L Cannula 07/10 2215 98.0 86 20 146/80 96 Nasal 1.0L Cannula 07/10 2210 70 162/84 07/10 1830 94 Nasal 1.0L Cannula 07/10 1615 96 Nasal 1.0L Cannula 07/10 1600 96 Nasal 1.0L Cannula 07/10 1422 98.7 58 20 140/60 94 Nasal 2.0L Cannula Intake & Output 07/11 1600 07/11 0800 07/11 0000 Intake Total 150 400 Output Total 400 950 Balance -250 -550 Intake, Oral 150 400 Output, Urine 400 950 Exam Other Physical Findings: gen awake and alert heent ncat cvs s1, s2 lungs rare rhonchi abd soft, bs+ ext trace edema Results Last 24 Hrs of Lab Results: Laboratory Tests 07/11/17 0620: Anion Gap 11, Estimated GFR 48 L, BUN/Creatinine Ratio 36.4 H Impression/Plan Impression/Plan Impression/Plan: Impression 76 year old woman * excacerbation of CHF and likely mild COPD exacerbation secondary to URI Plan -cardiology (Dr. Huerta) follow up, diuresis -prednisone taper 40mg x 3 days, 30x3, 20x3, 10x3, 5x3 then stop -monitor glucose -trc/nebs -cont a/c -assess o2 needs -out of bed as tolerated -assess for rehab DVT prophylaxis at all times
[2017-07-11 15:43] VITALS: BP 137/60
[2017-07-12 06:30] VITALS: BP 170/72
[2017-07-12 07:51] LABS: ABSOLUTE BASOPHIL COUNT 0 /CUMM (0.0-0.2); ABSOLUTE EOSINOPHIL COUNT 0 /CUMM (0.0-0.7); ABSOLUTE GRANULOCYTE CT 5.5 /CUMM (1.4-6.5); ABSOLUTE LYMPH COUNT 2.1 /CUMM (1.2-3.4); ABSOLUTE MONOCYTE COUNT 0.6 /CUMM (0.10-0.60); BASOPHIL % 0.2 % (0.0-2.0); EOSINOPHIL % 0.5 % (0-5); GRANULOCYTE % 66.8 % (42.2-75.2); MEAN CORPUSCULAR HGB 27.4 PG (27.0-31.0); MEAN CORPUSCULAR HGB CONC 32.8 G/DL (33.0-37.0); MEAN CORPUSCULAR VOLUME 83.5 FL (81.0-99.0); MEAN PLATELET VOLUME 8.5 FL (7.4-10.4); PLATELET COUNT 288 /CUMM (130-400); RBC DISTRIBUTION WIDTH 16.6 % (11.5-14.5); RED BLOOD CELL CT 4.31 /CUMM (4.20-5.40); WHITE BLOOD CELL COUNT 8.3 /CUMM (4.8-10.8)
[2017-07-12 08:30] LABS: PT 50.7 SEC (9.4-12.5)
--- NOTE | 2017-07-12 11:22 | PN- Housestaff ---
Crystal RODRÍGUEZ,Ericka 07/12/17 1122: Subjective Follow-up For: COPD cHF Subjective: Patient seen and examined. She states that she is feeling good. Review of Systems Constitutional: Reports: no symptoms. Cardiovascular: Reports: no symptoms. Objective Last 24 Hrs of Vital Signs/I&O Vital Signs Date Time Temp Pulse Resp B/P B/P Pulse O2 O2 Flow FiO2 Mean Ox Delivery Rate 07/12 1937 99 Nasal 1.0L Cannula 07/12 1703 94 Nasal 2.0L Cannula 07/12 1531 98.3 55 18 114/60 97 Nasal 1.5L Cannula 07/12 1011 156/76 07/12 1011 156/76 07/12 1010 156/76 07/12 1010 156/76 07/12 0941 94 Room Air Room Air 07/12 0630 98.2 72 18 170/72 93 Room Air 07/12 0000 Room Air Room Air 07/11 2230 97.3 70 18 92 Room Air 07/11 2225 78 134/62 Intake & Output 07/12 1600 07/12 0800 07/12 0000 Intake Total 420 150 200 Output Total 650 200 450 Balance -230 -50 -250 Intake, IV 20 Intake, Oral 400 150 200 Number 1 Bowel Movements Output, Urine 650 200 450 Physical Exam General Appearance: Alert, Oriented X3, Cooperative, No Acute Distress HEENT: Atraumatic Cardiovascular: Normal S1, Normal S2, No Murmurs Lungs: Clear to Auscultation Abdomen: Normal Bowel Sounds, Soft Current Medications: Current Medications Sig/Blanquita Start time Last Medication Dose Route Stop Time Status Admin Acetaminophen 650 MG Q6P PRN 07/07 1545 AC 07/10 PO 1220 Acetaminophen 1,000 MG Q6P PRN 07/07 1545 AC IV Albuterol Sulfate 3 ML BID 07/08 2199 AC 07/12 INH 1935 Albuterol Sulfate 2 PUF Q4P PRN 07/08 0216 AC INH Amitriptyline HCl 25 MG AT BEDTIME 07/07 2199 AC 07/11 PO 2222 Amlodipine Besylate 5 MG DAILY 07/08 1000 AC 07/12 PO 1011 Aspirin Buffered 81 MG DAILY 07/07 1545 AC 07/12 PO 1011 Atorvastatin Calcium 60 MG 1700 07/08 1700 AC 07/12 PO 1616 Budesonide/ 2 PUF BID 07/07 1545 AC 07/12 Formoterol Fumarate INH 1011 Ferrous Sulfate 325 MG DAILY 07/08 1000 AC 07/12 PO 1010 Furosemide 60 MG 7:30 AM, & 4:30 PM 07/12 1630 CAN PO Furosemide 60 MG 7:30 AM, & 4:30 PM 07/12 1630 AC 07/12 IV 1615 Furosemide 40 MG 7:30 AM, & 4:30 PM 07/11 1630 DC 07/12 PO 1011 Insulin Aspart 0 TIDAC 07/07 1600 AC 07/12 SC 1712 Isosorbide 60 MG DAILY 07/07 1549 AC 07/12 Mononitrate PO 1010 Levothyroxine Sodium 0.05 MG DAILY AC 07/07 1549 AC 07/12 PO 0715 Losartan Potassium 50 MG DAILY 07/07 1549 AC 07/12 PO 1010 Metoprolol Tartrate 25 MG BID 07/07 1549 AC 07/12 PO 1011 Potassium Chloride 20 MEQ DAILY 07/08 1000 AC 07/12 PO 1011 Prednisone 40 MG DAILY 07/11 1000 AC 07/12 PO 1010 Sodium Chloride 2 SPRAY Q4P PRN 07/10 1130 AC 07/10 JING 1319 Tiotropium [place] 1 PUF DAILY 07/07 1556 AC 07/12 INH 1012 Zolpidem Tartrate 5 MG AT BEDTIME 07/09 2200 AC 07/11 PO 2225 Last 24 Hrs of Lab/[place] Results Last 24 Hrs of Labs/Mics: Laboratory Tests 07/12/17 0616: Anion Gap 6, Estimated GFR > 60, BUN/Creatinine Ratio 43.3 H, PT 50.7 *H, INR 4.91 *H, CBC w Diff NO MAN DIFF REQ, RBC 4.31, MCV 83.5, MCH 27.4, RDW 16.6 H, MPV 8.5, Gran % 66.8, Lymphocytes % 25.4, Monocytes % 7.1, Eosinophils % 0.5, Basophils % 0.2, Absolute Granulocytes 5.5, Absolute Lymphocytes 2.1, Absolute Monocytes 0.6, Absolute Eosinophils 0, Absolute Basophils 0, PUBS MCHC 32.8 L Assessment/Plan Assessment: Ms. Rodriguez is a 76-year-old female with past medical history of congestive heart failure, seizure, mitral valve replacement with [facility] valve, cataracts, atrial fibrillation warfarin, hypertension, hyperlipidemia, pacemaker, COPD followed by Dr. Nails, diabetes mellitus, hypothyroidism, and non-Hodgkin's lymphoma who presented with shortness of breath and weakness. Problem list: 1. COPD exacerbation 2. Upper respiratory infection 3. CHF #COPD exacerbation/CHF: D-dimer was negative. Chest x-ray more concerning for COPD although there is likely an element of CHF. Likely caused by a recent upper respiratory infection. EKG and troponins 3 have been negative. Her breathing is improving but her voice is still hoarse, potentially from laryngitis. Her lungs are crackly but improving. She did not lose any weight yesterday. TTE revealed EF 50%, RV pressure 47 mmHg, and severe aortic stenosis. -Appreciate Pulmonology recommendations -DARIA suggested as TTE was suboptimal study. Consider as per Dr. Braga for tomorrow 07/13 -Prednisone taper 40mg x 3 days, 30x3, 20x3, 10x3, 5x3 then stop -TRC nebulizers -Oral Lasix switched to 60 mg IV twice a day. However less it be noted that in this patient with severe aortic stenosis over diuresis could be dangerous. -Azithromycin 3 days -Daily weights, strict I's and O's -Repeat chest x-ray ordered #Chronic medical problems: Anemia, hypertension, COPD, hypothyroidism, CAD, hyperlipidemia, depression -Continue home potassium chloride, ferrous sulfate, amlodipine, furosemide, amitriptyline, albuterol, tiotropium, ipratropium, metoprolol, losartan, levothyroxine, isosorbide mononitrate, budesonide/formoterol, atorvastatin, aspirin -Daily INR, dose warfarin, goal 2.5-3.5 -Detemir plus insulin sliding scale Constipation Patient had a bowel movement today, last bowel movement was the third DVT prophylaxis with warfarin consistent carbohydrate 2 diet Full code Problem List: 1. COPD exacerbation 2. CHF exacerbation Pain Ratin Pain Location: na Pain Goal: Remain pain free Pain Plan: When necessary Tomorrow's Labs & Rationales: CBC and BEP and INR Garrick Peters 07/12/17 1351: Attending MD Review Statement Attending Statement Attending MD Statement: examined this patient, discuss w/resident/PA/PMO CONSULTANT, agreed w/resident/PA/PMO CONSULTANT, discussed with family, reviewed EMR data (avail), discussed with nursing, discussed with case mgmt, reviewed images, amended to note Attending Assessment/Plan: Pt seen and examined at bedside. Cardiology and pulmonary following. CHF exacerbation- echo reviewed. switched to po lasix. f/u cardiology. Acute copd exacerbation- taper prednisone as per pulmonary Headache- better with humidified oxygen and on saline nasal spray. check walking pulse oximetry before discharge. INR supratherapeutic today. Follow INR in am. d/w pt the care plan.
--- NOTE | 2017-07-12 11:52 | PN- Pulmonary ---
Subjective HPI/Critical Care Issues: Patient seen and examined this morning. She is on by mouth Lasix and by mouth prednisone. I have spoken with her son this morning and we are planning to observe her for another day and plan for discharge tomorrow or within the next 24-48 hours. Objective Current Medications: Current Medications Sig/Blanquita Start time Last Medication Dose Route Stop Time Status Admin Acetaminophen 650 MG Q6P PRN 07/07 1545 AC 07/10 PO 1220 Acetaminophen 1,000 MG Q6P PRN 07/07 1545 AC IV Albuterol Sulfate 3 ML BID 07/08 2200 AC 07/12 INH 0940 Albuterol Sulfate 2 PUF Q4P PRN 07/08 0216 AC INH Amitriptyline HCl 25 MG AT BEDTIME 07/07 2200 AC 07/11 PO 2222 Amlodipine Besylate 5 MG DAILY 07/08 1000 AC 07/12 PO 1011 Aspirin Buffered 81 MG DAILY 07/07 1545 AC 07/12 PO 1011 Atorvastatin Calcium 60 MG 1700 07/08 1700 AC 07/11 PO 1651 Budesonide/ 2 PUF BID 07/07 1545 AC 07/12 Formoterol Fumarate INH 1011 Ferrous Sulfate 325 MG DAILY 07/08 1000 AC 07/12 PO 1010 Furosemide 40 MG 7:30 AM, & 4:30 PM 07/11 1630 AC 07/12 PO 1011 Furosemide 40 MG TID 07/10 1000 DC 07/11 IV 0950 Insulin Aspart 0 TIDAC 07/07 1600 AC 07/11 SC 1701 Isosorbide 60 MG DAILY 07/07 1549 AC 07/12 Mononitrate PO 1010 Levothyroxine Sodium 0.05 MG DAILY AC 07/07 1549 AC 07/12 PO 0715 Losartan Potassium 50 MG DAILY 07/07 1549 AC 07/12 PO 1010 Metoprolol Tartrate 25 MG BID 07/07 1549 AC 07/12 PO 1011 Potassium Chloride 20 MEQ DAILY 07/08 1000 AC 07/12 PO 1011 Prednisone 40 MG DAILY 07/11 1000 AC 07/12 PO 1010 Sodium Chloride 2 SPRAY Q4P PRN 07/10 1130 AC 07/10 JING 1319 Tiotropium [place] 1 PUF DAILY 07/07 1556 AC 07/12 INH 1012 Warfarin Sodium 5 MG COUMADIN 1700 ONE 07/11 1700 DC 07/11 PO 01/06 1701 1651 Zolpidem Tartrate 5 MG AT BEDTIME 07/09 2200 AC 07/11 PO 2225 Vital Signs & I&O Last 24 Hrs of Vitals and I&O: Vital Signs Date Time Temp Pulse Resp B/P B/P Pulse O2 O2 Flow FiO2 Mean Ox Delivery Rate 07/12 1011 156/76 07/12 1011 156/76 07/12 1010 156/76 07/12 1010 156/76 07/12 0941 94 Room Air Room Air 07/12 0630 98.2 72 18 170/72 93 Room Air 07/12 0000 Room Air Room Air 07/11 2230 97.3 70 18 92 Room Air 07/11 2225 78 134/62 07/11 1936 97 Nasal 1.0L Cannula 07/11 1757 94 Nasal 1.0L Cannula 07/11 1543 98.5 64 18 137/60 97 Intake & Output 07/12 1600 07/12 0800 07/12 0000 Intake Total 150 200 Output Total 200 450 Balance -50 -250 Intake, Oral 150 200 Output, Urine 200 450 Exam Other Physical Findings: gen awake and alert heent ncat cvs s1, s2 lungs rare rhonchi abd soft, bs+ ext trace edema Results Last 24 Hrs of Lab Results: Laboratory Tests 07/12/17 0616: Anion Gap 6, Estimated GFR > 60, BUN/Creatinine Ratio 43.3 H, PT 50.7 *H, INR 4.91 *H, CBC w Diff NO MAN DIFF REQ, RBC 4.31, MCV 83.5, MCH 27.4, RDW 16.6 H, MPV 8.5, Gran % 66.8, Lymphocytes % 25.4, Monocytes % 7.1, Eosinophils % 0.5, Basophils % 0.2, Absolute Granulocytes 5.5, Absolute Lymphocytes 2.1, Absolute Monocytes 0.6, Absolute Eosinophils 0, Absolute Basophils 0, PUBS MCHC 32.8 L Impression/Plan Impression/Plan Impression/Plan: Impression 76 year old woman * excacerbation of CHF and likely mild COPD exacerbation secondary to URI Plan -cardiology (Dr. Huerta) follow up, diuresis -prednisone taper 40mg x 3 days, 30x3, 20x3, 10x3, 5x3 then stop -monitor glucose -trc/nebs -cont a/c -assess o2 needs -out of bed as tolerated -assess for rehab DVT prophylaxis at all times DC within 24 hrs (tomorrow - Thursday) D/w her son Miko - also consider pulmonary rehab, info provided to son
--- NOTE | 2017-07-12 12:08 | PN- Cardiology ---
Subjective Subjective: * Patient reports shortness of breath. * ventricular paced rhythm * INR is 4.91 Objective Vital Signs and I&Os Vital Signs Date Time Temp Pulse Resp B/P B/P Pulse O2 O2 Flow FiO2 Mean Ox Delivery Rate 07/12 1011 156/76 07/12 1011 156/76 07/12 1010 156/76 07/12 1010 156/76 07/12 0941 94 Room Air Room Air 07/12 0630 98.2 72 18 170/72 93 Room Air 07/12 0000 Room Air Room Air 07/11 2230 97.3 70 18 92 Room Air 07/11 2225 78 134/62 07/11 1936 97 Nasal 1.0L Cannula 07/11 1757 94 Nasal 1.0L Cannula 07/11 1543 98.5 64 18 137/60 97 Intake & Output 07/12 1600 07/12 0800 07/12 0000 07/11 1600 07/11 0800 07/11 0000 Intake Total 150 200 420 150 400 Output Total 200 450 600 400 950 Balance -50 -250 -180 -250 -550 Intake, IV 20 Intake, Oral 150 200 400 150 400 Output, Urine 200 450 600 400 950 Patient 131 lb Weight Physical Exam: General: WD/WN female in NAD; alert and oriented x 3 HEENT: NC/AT, PERRL, EOMI Neck: no JVD Heart: RRR with 2/6 systolic murmur Lungs: decreased air movement and wheezing bilaterally Extremties: no edema Assessment/Plan Assessment/Plan * Breathing is worse today. Obtain a chest X-ray. Increase Lasix to 60mg IV BID. Severely decreased air movement. Continue albuterol inhaler and prednisonw. Diuresis will need to be done cautiously since overdiurese in the setting of sever aortic stenosis is often poorly tolerated. * Will consider a DARIA to better evaluate the aortic valve since transthoracic images were less than ideal. Continue telemetry? Yes
[2017-07-12 15:31] VITALS: BP 114/60
--- NOTE | 2017-07-12 16:43 | RADIOLOGY REPORT ---
EXAMINATION: XR PORTABLE CHEST CLINICAL INFORMATION: Worsening respiratory status. COMPARISON: Chest x-ray 07/09/2017 TECHNIQUE: Portable frontal view of the chest was obtained. 3:22 PM FINDINGS: Status post median sternotomy with cardiac valve replacement. Heart size is prominent. Single lead pacemaker in place with the pacemaker lead at the base of the heart and right ventricle unchanged position since prior study. There is hyperexpansion of lungs. Persistent hazy opacity at the left lung base with blunting of left costophrenic angle consistent with pleural thickening as seen on CT chest 02/10/2017 and possible small left effusion. There is no right pleural effusion. No significant central pulmonary vascular congestion. IMPRESSION: 1. Persistent blunting left costophrenic angle due to pleural thickening and possible small left pleural effusion. 2. Cardiomegaly. Pacemaker present. Status post cardiac valve replacement. 3. No significant pulmonary vascular congestion.
[2017-07-12 22:13] VITALS: BP 160/86
[2017-07-13 06:30] VITALS: BP 160/60
--- NOTE | 2017-07-13 07:21 | PN- Housestaff ---
See Addendum Subjective Follow-up For: CHF/COPD Tele-Events Since Last Visit: NSR, 48-90 Subjective: No overnight events. Patient was feeling better day but her breathing worsened yesterday. SOB is persistent. No CP or abd pain or other issues. Review of Systems Constitutional: Reports: no symptoms. EENTM: Reports: no symptoms. Cardiovascular: Reports: no symptoms. Respiratory: Reports: see HPI. Gastrointestinal: Reports: no symptoms. Genitourinary: Reports: no symptoms. Musculoskeletal: Reports: no symptoms. Skin: Reports: no symptoms. Neurological/Psychological: Reports: no symptoms. Hematologic/Endocrine: Reports: no symptoms. Immunologic/Allergic: Reports: no symptoms. Objective Last 24 Hrs of Vital Signs/I&O Vital Signs Date Time Temp Pulse Resp B/P B/P Pulse O2 O2 Flow FiO2 Mean Ox Delivery Rate 07/13 0630 98.1 52 20 160/60 97 Nasal 1.0L Cannula 07/12 2212 Nasal 2.0L Cannula 07/12 221 97.7 63 26 160/86 95 Nasal Cannula 07/12 2056 70 160/88 07/12 1937 99 Nasal 1.0L Cannula 07/12 1703 94 Nasal 2.0L Cannula 07/12 1531 98.3 55 18 114/60 97 Nasal 1.5L Cannula 07/12 1011 156/76 07/12 1011 156/76 07/12 1010 156/76 07/12 1010 156/76 07/12 0941 94 Room Air Room Air Intake & Output 07/13 0800 07/13 0000 07/12 1600 Intake Total 240 240 420 Output Total 400 350 650 Balance -160 -110 -230 Intake, IV 20 Intake, Oral 240 240 400 Number 1 Bowel Movements Output, Urine 400 350 650 Physical Exam General Appearance: Alert, Oriented X3, Cooperative, No Acute Distress Cardiovascular: irregular Lungs: mild crackles Abdomen: Normal Bowel Sounds, Soft, No Tenderness Extremities: No Edema, Normal Pulses, No Tenderness/Swelling Current Medications: Current Medications Sig/Blanquita Start time Last Medication Dose Route Stop Time Status Admin Acetaminophen 650 MG Q6P PRN 07/07 1545 AC 07/10 PO 1220 Acetaminophen 1,000 MG Q6P PRN 07/07 1545 AC IV Albuterol Sulfate 3 ML BID 07/08 2200 AC 07/12 INH 1935 Albuterol Sulfate 2 PUF Q4P PRN 07/08 0216 AC INH Amitriptyline HCl 25 MG AT BEDTIME 07/07 2200 AC 07/12 PO 205 Amlodipine Besylate 5 MG DAILY 07/08 1000 AC 07/12 PO 1011 Aspirin Buffered 81 MG DAILY 07/07 1545 AC 07/12 PO 1011 Atorvastatin Calcium 60 MG 1700 07/08 1700 AC 07/12 PO 1616 Budesonide/ 2 PUF BID 07/07 1545 AC 07/12 Formoterol Fumarate INH 205 Ferrous Sulfate 325 MG DAILY 07/08 1000 AC 07/12 PO 1010 Furosemide 60 MG 7:30 AM, & 4:30 PM 07/12 1630 CAN PO Furosemide 60 MG 7:30 AM, & 4:30 PM 07/12 1630 AC 07/12 IV 1615 Furosemide 40 MG 7:30 AM, & 4:30 PM 07/11 1630 DC 07/12 PO 1011 Insulin Aspart 0 TIDAC 07/07 1600 AC 07/12 SC 1712 Isosorbide 60 MG DAILY 07/07 1549 AC 07/12 Mononitrate PO 1010 Levothyroxine Sodium 0.05 MG DAILY AC 07/07 1549 AC 07/13 PO 0523 Losartan Potassium 50 MG DAILY 07/07 1549 AC 07/12 PO 1010 Metoprolol Tartrate 25 MG BID 07/07 1549 AC 07/12 PO 205 Potassium Chloride 20 MEQ DAILY 07/08 1000 AC 07/12 PO 1011 Prednisone 40 MG DAILY 07/11 1000 AC 07/12 PO 1010 Sodium Chloride 2 SPRAY Q4P PRN 07/10 1130 AC 07/12 JING 2057 Tiotropium [place] 1 PUF DAILY 07/07 1556 AC 07/12 INH 1012 Zolpidem Tartrate 5 MG AT BEDTIME 07/09 2200 AC 07/12 PO 2055 Last 24 Hrs of Lab/[place] Results Last 24 Hrs of Labs/Mics: Laboratory Tests 07/13/17 0655: Sodium Pending, Potassium Pending, Chloride Pending, Carbon Dioxide Pending, Anion Gap Pending, BUN Pending, Creatinine Pending, BUN/Creatinine Ratio Pending , CBC w Diff Pending, WBC Pending, RBC Pending, Hgb Pending, Hct Pending, MCV Pending, MCH Pending, RDW Pending, Plt Count Pending, MPV Pending, PUBS [facility] Pending Assessment/Plan Assessment: Ms. Rodriguez is a 76-year-old female with past medical history of congestive heart failure, seizure, mitral valve replacement with [facility] valve, cataracts, atrial fibrillation warfarin, hypertension, hyperlipidemia, pacemaker, COPD followed by Dr. Nails, diabetes mellitus, hypothyroidism, and non-Hodgkin's lymphoma who presented with shortness of breath and weakness. Problem list: 1. COPD exacerbation 2. Upper respiratory infection 3. CHF #COPD exacerbation/CHF: D-dimer was negative. Chest x-ray more concerning for COPD although there is likely an element of CHF. Likely caused by a recent upper respiratory infection. EKG and troponins 3 have been negative. TTE revealed EF 50%, RV pressure 47 mmHg. patient was improving but then her breathing on Thursday worsened. Chest x-ray showing persistent left pleural effusion. -Appreciate Pulmonology recommendations -Appreciate cardiology recommendations -CT chest w/o contrast -Prednisone taper 40mg x 1 days, 30x3, 20x3, 10x3, 5x3 then stop -TRC nebulizers -Furosemide 60 mg IV twice a day -Daily weights, strict I's and O's #Chronic medical problems: Anemia, hypertension, COPD, hypothyroidism, CAD, hyperlipidemia, depression -Continue home potassium chloride, ferrous sulfate, amlodipine, furosemide, amitriptyline, albuterol, tiotropium, ipratropium, metoprolol, losartan, levothyroxine, isosorbide mononitrate, budesonide/formoterol, atorvastatin, aspirin -Daily INR, dose warfarin, goal 2.5-3.5 -Detemir plus insulin sliding scale DVT prophylaxis with warfarin consistent carbohydrate 2 diet Full code Problem List: 1. COPD exacerbation 2. CHF exacerbation Pain Ratin Pain Location: no pain Pain Goal: Remain pain free Pain Plan: see a/p Tomorrow's Labs & Rationales: cbc, bep
[2017-07-13 08:01] LABS: ABSOLUTE BASOPHIL COUNT 0 /CUMM (0.0-0.2); ABSOLUTE EOSINOPHIL COUNT 0.1 /CUMM (0.0-0.7); ABSOLUTE GRANULOCYTE CT 6.1 /CUMM (1.4-6.5); ABSOLUTE MONOCYTE COUNT 0.7 /CUMM (0.10-0.60); BASOPHIL % 0.2 % (0.0-2.0); GRANULOCYTE % 68.2 % (42.2-75.2); HEMATOCRIT 35.5 % (37-47); MEAN CORPUSCULAR HGB 27.3 PG (27.0-31.0); MEAN CORPUSCULAR VOLUME 82.8 FL (81.0-99.0); MEAN PLATELET VOLUME 8.3 FL (7.4-10.4); PLATELET COUNT 300 /CUMM (130-400); RBC DISTRIBUTION WIDTH 15.9 % (11.5-14.5); RED BLOOD CELL CT 4.29 /CUMM (4.20-5.40); WHITE BLOOD CELL COUNT 8.9 /CUMM (4.8-10.8)
[2017-07-13 14:36] VITALS: BP 128/58
--- NOTE | 2017-07-13 14:42 | CT SCAN REPORT ---
EXAMINATION: CT CHEST WITHOUT CONTRAST CLINICAL INFORMATION: Left pleural effusion and persistent shortness of breath. COMPARISON: Chest radiograph 07/12/2017, chest CT 02/10/2017, chest CT 02/12/2015. TECHNIQUE: Multidetector volumetric CT imaging of the chest was done. Axial MIP volume rendering provided. Sagittal and coronal reformatted images were obtained. DLP: 203.12 mGy-cm FINDINGS: [employer] SUPERINTENDENT: Median sternotomy wires and aortic valve replacement. Mediastinal surgical clips. Right chest pacer with lead in the vicinity of the right ventricle. Vascular calcifications. LUNGS: Stable 0.2 cm pulmonary nodule lateral right apex (56/472). Stable 0.4 cm pulmonary nodule posterior left apex (89/472). Stable 0.2 cm nodule along the right major fissure (175/472). Stable 0.2 cm subpleural nodule inferiormost aspect of the right middle lobe. There is a background of centrilobular emphysematous changes, predominately involving the lung apices. Unchanged curvilinear opacity of the left lower lobe posterolaterally adjacent to the pleural surface with mild pleural thickening and architectural distortion of the adjacent lung parenchyma. A similar but less prominent appearance is seen within the inferior lingula. Scattered areas of ground-glass opacity seen on the axial images corresponds to subsegmental atelectasis when viewed coronally. An example is within the middle lobe (image 30/59 of series 3 corresponding to coronal image 27/96). No new or increasing pulmonary mass or nodule. MEDIASTINUM: Cardiomegaly. Mitral valvuloplasty. Mitral annular calcifications. Aortic valve calcifications. Extensive coronary artery calcifications. Right chest pacer with lead in the right ventricle. No evidence of mediastinal lymphadenopathy. Limited evaluation for hilar adenopathy without IV contrast. No bulky hilar lymph nodes are appreciated. Limited views of the thyroid are unremarkable. PLEURA: As above. No pneumothorax. AXILLA: No lymphadenopathy. UPPER ABDOMEN: Extensive vascular calcifications. Chronic left renal atrophy. OSSEOUS STRUCTURES: No acute or suspicious osseous abnormality. IMPRESSION: 1. A few small scattered stable pulmonary nodules. 2. Stable curvilinear scarring and/or atelectasis of the left lower lobe. Stable associated pleural thickening of the left lower lobe. No pleural effusion. 3. Advanced calcified atherosclerotic disease as detailed above.
--- NOTE | 2017-07-13 16:22 | PN- Pulmonary ---
Subjective HPI/Critical Care Issues: Patient seen and examined this morning. She appears to be doing a little worse with respect to her dyspnea. She will get a CAT scan today of the chest to evaluate lung parenchyma and medications. Objective Current Medications: Current Medications Sig/Blanquita Start time Last Medication Dose Route Stop Time Status Admin Acetaminophen 650 MG Q6P PRN 07/07 1545 AC 07/10 PO 1220 Acetaminophen 1,000 MG Q6P PRN 07/07 1545 AC IV Albuterol Sulfate 3 ML BID 07/08 2200 AC 07/13 INH 1224 Albuterol Sulfate 2 PUF Q4P PRN 07/08 0216 AC INH Amitriptyline HCl 25 MG AT BEDTIME 07/07 2200 AC 07/12 PO 205 Amlodipine Besylate 5 MG DAILY 07/08 1000 AC 07/13 PO 0932 Aspirin Buffered 81 MG DAILY 07/07 1545 AC 07/13 PO 0933 Atorvastatin Calcium 60 MG 1700 07/08 1700 AC 07/13 PO 1619 Budesonide/ 2 PUF BID 07/07 1545 AC 07/13 Formoterol Fumarate INH 0931 Ferrous Sulfate 325 MG DAILY 07/08 1000 AC 07/13 PO 0933 Furosemide 60 MG 7:30 AM, & 4:30 PM 07/12 1630 AC 07/13 IV 1617 Insulin Aspart 0 TIDAC 07/07 1600 AC 07/13 SC 0800 Isosorbide 60 MG DAILY 07/07 1549 AC 07/13 Mononitrate PO 0932 Levothyroxine Sodium 0.05 MG DAILY AC 07/07 1549 AC 07/13 PO 0523 Losartan Potassium 50 MG DAILY 07/07 1549 AC 07/13 PO 0933 Metoprolol Tartrate 25 MG BID 07/07 1549 AC 07/13 PO 0932 Potassium Chloride 20 MEQ DAILY 07/08 1000 AC 07/13 PO 0932 Prednisone 40 MG DAILY 07/11 1000 AC 07/13 PO 0932 Sodium Chloride 2 SPRAY Q4P PRN 07/10 1130 AC 07/12 JING 205 Tiotropium [place] 1 PUF DAILY 07/07 1556 AC 07/13 INH 0932 Warfarin Sodium 5 MG COUMADIN 1700 ONE 07/13 1700 AC 07/13 PO 07/13 1701 1619 Zolpidem Tartrate 5 MG AT BEDTIME 07/09 2200 AC 07/12 PO 2055 Vital Signs & I&O Last 24 Hrs of Vitals and I&O: Vital Signs Date Time Temp Pulse Resp B/P B/P Pulse O2 O2 Flow FiO2 Mean Ox Delivery Rate 07/13 1436 98.3 60 20 128/58 91 Nasal 1.0L Cannula 07/13 1227 94 Nasal 1.0L Cannula 07/13 0900 94 Nasal 2.0L Cannula 07/13 0630 98.1 52 20 160/60 97 Nasal 1.0L Cannula 07/12 221 Nasal 2.0L Cannula 07/12 221 97.7 63 26 160/86 95 Nasal Cannula 07/12 2056 70 160/88 07/12 1937 99 Nasal 1.0L Cannula 07/12 1703 94 Nasal 2.0L Cannula Intake & Output 07/13 1600 07/13 0807/13 0000 Intake Total 430 240 240 Output Total 650 400 350 Balance -220 -160 -110 Intake, IV 30 Intake, Oral 400 240 240 Output, Urine 650 400 350 Patient 132 lb Weight Weight Chair scale Measurement Method Exam Other Physical Findings: gen awake and alert heent ncat cvs s1, s2 lungs rare rhonchi abd soft, bs+ ext trace edema Results Last 24 Hrs of Lab Results: Laboratory Tests 07/13/17 0655: Anion Gap 6, Estimated GFR > 60, BUN/Creatinine Ratio 40.0 H, Qel-C-Oxpblhqdmoi Pept 2250 H, PT 33.0 H, INR 3.18 H, CBC w Diff NO MAN DIFF REQ, RBC 4.29, MCV 82.8, MCH 27.3, RDW 15.9 H, MPV 8.3, Gran % 68.2, Lymphocytes % 22.3, Monocytes % 8.3, Eosinophils % 1.0, Basophils % 0.2, Absolute Granulocytes 6.1, Absolute Lymphocytes 2.0, Absolute Monocytes 0.7 H, Absolute Eosinophils 0.1, Absolute Basophils 0, PUBS MCHC 33.0 Impression/Plan Impression/Plan Impression/Plan: Impression 76 year old woman * excacerbation of CHF and likely mild COPD exacerbation secondary to URI Plan Patient seen and examined this morning. She appears to be doing a little worse with respect to her dyspnea. She will get a CAT scan today of the chest to evaluate lung parenchyma and medications. -cardiology (Dr. Huerta) follow up, diuresis -prednisone taper 40mg x 3 days, 30x3, 20x3, 10x3, 5x3 then stop -monitor glucose -trc/nebs -cont a/c -assess o2 needs -out of bed as tolerated -assess for rehab DVT prophylaxis at all times DC within 24 hrs (tomorrow - Thursday) D/w her son Miko - also consider pulmonary rehab, info provided to son
[2017-07-13 22:00] VITALS: BP 148/58
--- NOTE | 2017-07-14 07:09 | PN- Housestaff ---
See Addendum Subjective Follow-up For: COPD/CHF Tele-Events Since Last Visit: Afib 50-90 Subjective: She was bradycardic last night, metoprolol was held. Asymptomatic. Feels better this morning, breathing much improved. No CP or other issues. Review of Systems Constitutional: Reports: no symptoms. EENTM: Reports: no symptoms. Cardiovascular: Reports: no symptoms. Respiratory: Reports: see HPI. Gastrointestinal: Reports: no symptoms. Genitourinary: Reports: no symptoms. Musculoskeletal: Reports: no symptoms. Skin: Reports: no symptoms. Neurological/Psychological: Reports: no symptoms. Hematologic/Endocrine: Reports: no symptoms. Immunologic/Allergic: Reports: no symptoms. Objective Last 24 Hrs of Vital Signs/I&O Vital Signs Date Time Temp Pulse Resp B/P B/P Pulse O2 O2 Flow FiO2 Mean Ox Delivery Rate 07/14 0000 93 Nasal 1.0L Cannula 07/13 220 98.8 59 18 148/58 18 Nasal 1.0L Cannula 07/13 1915 94 Room Air 07/13 1727 92 Nasal 2.0L Cannula 07/13 1436 98.3 60 20 128/58 91 Nasal 1.0L Cannula 07/13 1227 94 Nasal 1.0L Cannula 07/13 0900 94 Nasal 2.0L Cannula Intake & Output 07/14 0800 07/14 0000 07/13 1600 Intake Total 430 Output Total 200 1900 650 Balance -200 -1900 -220 Intake, IV 30 Intake, Oral 400 Output, Urine 200 1900 650 Physical Exam General Appearance: Alert, Oriented X3, Cooperative, No Acute Distress Cardiovascular: irregular Lungs: mild crackles Abdomen: Normal Bowel Sounds, Soft, No Tenderness Extremities: No Edema, Normal Pulses, No Tenderness/Swelling Current Medications: Current Medications Sig/Blanquita Start time Last Medication Dose Route Stop Time Status Admin Acetaminophen 650 MG Q6P PRN 07/07 1545 AC 07/10 PO 1220 Acetaminophen 1,000 MG Q6P PRN 07/07 1545 AC IV Albuterol Sulfate 3 ML BID 07/08 2200 AC 07/13 INH 191 Albuterol Sulfate 2 PUF Q4P PRN 07/08 0216 AC INH Amitriptyline HCl 25 MG AT BEDTIME 07/07 2199 AC 07/13 PO 205 Amlodipine Besylate 5 MG DAILY 07/08 1000 AC 07/13 PO 0932 Aspirin Buffered 81 MG DAILY 07/07 1545 AC 07/13 PO 0933 Atorvastatin Calcium 60 MG 1700 07/08 1700 AC 07/13 PO 1619 Budesonide/ 2 PUF BID 07/07 1545 AC 07/13 Formoterol Fumarate INH 2055 Ferrous Sulfate 325 MG DAILY 07/08 1000 AC 07/13 PO 0933 Furosemide 60 MG 7:30 AM, & 4:30 PM 07/12 1630 AC 07/13 IV 1617 Insulin Aspart 0 TIDAC 07/07 1600 AC 07/13 SC 1634 Isosorbide 60 MG DAILY 07/07 1549 AC 07/13 Mononitrate PO 0932 Levothyroxine Sodium 0.05 MG DAILY AC 07/07 1549 AC 07/14 PO 0548 Losartan Potassium 50 MG DAILY 07/07 1549 AC 07/13 PO 0933 Metoprolol Tartrate 25 MG BID 07/07 1549 AC 07/13 PO 0932 Potassium Chloride 20 MEQ DAILY 07/08 1000 AC 07/13 PO 0932 Prednisone 40 MG DAILY 07/11 1000 AC 07/13 PO 0932 Sodium Chloride 2 SPRAY Q4P PRN 07/10 1130 AC 07/12 JING 2057 Tiotropium [place] 1 PUF DAILY 07/07 1556 AC 07/13 INH 0932 Warfarin Sodium 5 MG COUMADIN 1700 ONE 07/13 1700 DC 07/13 PO 07/13 1701 1619 Zolpidem Tartrate 5 MG AT BEDTIME 07/09 2200 AC 07/13 PO 2055 Last 24 Hrs of Lab/[place] Results Last 24 Hrs of Labs/Mics: Laboratory Tests 07/14/17 0615: Sodium Pending, Potassium Pending, Chloride Pending, Carbon Dioxide Pending, Anion Gap Pending, BUN Pending, Creatinine Pending, BUN/Creatinine Ratio Pending , PT Pending, INR Pending, CBC w Diff Pending, WBC Pending, RBC Pending, Hgb Pending, Hct Pending, MCV Pending, MCH Pending, RDW Pending, Plt Count Pending, MPV Pending, PUBS MCHC Pending Assessment/Plan Assessment: Ms. Rodriguez is a 76-year-old female with past medical history of congestive heart failure, seizure, mitral valve replacement with [facility] valve, cataracts, atrial fibrillation warfarin, hypertension, hyperlipidemia, pacemaker, COPD followed by Dr. Nails, diabetes mellitus, hypothyroidism, and non-Hodgkin's lymphoma who presented with shortness of breath and weakness. Problem list: 1. COPD exacerbation 2. Upper respiratory infection 3. CHF #COPD exacerbation/CHF: D-dimer was negative. Chest x-ray more concerning for COPD although there is likely an element of CHF. Likely caused by a recent upper respiratory infection. EKG and troponins 3 have been negative. TTE revealed EF 50%, RV pressure 47 mmHg. patient was improving but then her breathing on Thursday worsened. Chest x-ray showing persistent left pleural effusion. CT chest yesterday showed a few small scattered stable pulmonary nodules, stable scarring of the left lower lobe, no pleural effusion, and advanced atherosclerotic disease. -Appreciate Pulmonology recommendations -Appreciate cardiology recommendations -Prednisone taper 30x3, 20x3, 10x3, 5x3 then stop -TRC nebulizers -Furosemide 60 mg IV twice a day -Daily weights, strict I's and O's -Replete potassium. -Check magnesium #Chronic medical problems: Anemia, hypertension, COPD, hypothyroidism, CAD, hyperlipidemia, depression -Continue home potassium chloride, ferrous sulfate, amlodipine, furosemide, amitriptyline, albuterol, tiotropium, ipratropium, metoprolol, losartan, levothyroxine, isosorbide mononitrate, budesonide/formoterol, atorvastatin, aspirin -Daily INR, dose warfarin, goal 2.5-3.5 -Detemir plus insulin sliding scale DVT prophylaxis with warfarin consistent carbohydrate 2 diet Full code Problem List: 1. Acute exacerbation of chronic obstructive pulmonary disease (COPD) Pain Ratin Pain Location: no pain Pain Goal: Remain pain free Pain Plan: see a/p Tomorrow's Labs & Rationales: bep
[2017-07-14 07:12] VITALS: BP 170/70
[2017-07-14 07:52] LABS: ABSOLUTE BASOPHIL COUNT 0 /CUMM (0.0-0.2); ABSOLUTE EOSINOPHIL COUNT 0.1 /CUMM (0.0-0.7); ABSOLUTE LYMPH COUNT 1.8 /CUMM (1.2-3.4); ABSOLUTE MONOCYTE COUNT 0.6 /CUMM (0.10-0.60); BASOPHIL % 0.5 % (0.0-2.0); GRANULOCYTE % 73.2 % (42.2-75.2); HEMATOCRIT 36.8 % (37-47); MEAN CORPUSCULAR HGB 27.3 PG (27.0-31.0); MEAN CORPUSCULAR HGB CONC 32.5 G/DL (33.0-37.0); MEAN CORPUSCULAR VOLUME 84.1 FL (81.0-99.0); MEAN PLATELET VOLUME 8.3 FL (7.4-10.4); PLATELET COUNT 297 /CUMM (130-400); RBC DISTRIBUTION WIDTH 16.4 % (11.5-14.5); RED BLOOD CELL CT 4.37 /CUMM (4.20-5.40); WHITE BLOOD CELL COUNT 9.5 /CUMM (4.8-10.8)
[2017-07-14 08:17] LABS: PT 27.7 SEC (9.4-12.5)
--- NOTE | 2017-07-14 09:11 | PN- Cardiology ---
Subjective Subjective: Saw Mrs. Rodriguez this evening of 07/13/2017. Breathing better today, but had several episodes of desaturating over the weekend. Objective Vital Signs and I&Os Vital Signs Date Time Temp Pulse Resp B/P B/P Pulse O2 O2 Flow FiO2 Mean Ox Delivery Rate 07/14 812 95 Nasal 1.0L Cannula 07/14 0712 98.3 59 20 170/70 94 Nasal 1.0L Cannula 07/14 0000 93 Nasal 1.0L Cannula 07/13 2200 98.8 59 18 148/58 18 Nasal 1.0L Cannula 07/13 1915 94 Room Air 07/13 1727 92 Nasal 2.0L Cannula 07/13 1436 98.3 60 20 128/58 91 Nasal 1.0L Cannula 07/13 1227 94 Nasal 1.0L Cannula Intake & Output 07/14 1600 07/14 0800 07/14 0000 07/13 1600 07/13 0800 07/13 0000 Intake Total 430 240 240 Output Total 400 1900 650 400 350 Balance -400 -1900 -220 -160 -110 Intake, IV 30 Intake, Oral 400 240 240 Output, Urine 400 1900 650 400 350 Patient 132 lb Weight Weight Chair scale Measurement Method Physical Exam: Well-developed, well-nourished elderly white female in no acute distress. Vital signs: See above. HEENT: Normocephalic/atraumatic, EOMI, moist mucous membranes. Neck: No JVD, bilateral bruits versus transmitted systolic murmur. Lungs: Decreased breath sounds bilaterally, few bibasilar crackles, and expiratory wheezing. Heart: S1, S2 with appropriate mechanical valve sound and grade 2/6 systolic murmur. Abdomen: Soft, nontender, positive bowel sounds. Extremities: No edema. Current Medications: Current Medications Sig/Blanquita Start time Last Medication Dose Route Stop Time Status Admin Acetaminophen 650 MG Q6P PRN 07/07 1545 AC 07/10 PO 1220 Acetaminophen 1,000 MG Q6P PRN 07/07 1545 AC IV Albuterol Sulfate 3 ML BID 07/08 2199 AC 07/13 INH 1915 Albuterol Sulfate 2 PUF Q4P PRN 07/08 0216 AC INH Amitriptyline HCl 25 MG AT BEDTIME 07/07 2199 AC 07/13 PO 2055 Amlodipine Besylate 5 MG DAILY 07/08 1000 AC 07/13 PO 0932 Aspirin Buffered 81 MG DAILY 07/07 1545 AC 07/13 PO 0933 Atorvastatin Calcium 60 MG 1700 07/08 1700 AC 07/13 PO 1619 Budesonide/ 2 PUF BID 07/07 1545 AC 07/13 Formoterol Fumarate INH 2055 Ferrous Sulfate 325 MG DAILY 07/08 1000 AC 07/13 PO 0933 Furosemide 60 MG 7:30 AM, & 4:30 PM 07/12 1630 AC 07/13 IV 1617 Insulin Aspart 0 TIDAC 07/07 1600 AC 07/13 SC 1634 Isosorbide 60 MG DAILY 07/07 1549 AC 07/13 Mononitrate PO 0932 Levothyroxine Sodium 0.05 MG DAILY AC 07/07 1549 AC 07/14 PO 0548 Losartan Potassium 50 MG DAILY 07/07 1549 AC 07/13 PO 0933 Metoprolol Tartrate 25 MG BID 07/07 1549 AC 07/13 PO 0932 Potassium Chloride 20 MEQ 0900 07/14 0900 DC PO 07/14 0901 Potassium Chloride 40 MEQ ONCE ONE 07/14 0830 DC PO 07/14 0831 Potassium Chloride 20 MEQ DAILY 07/08 1000 AC 07/13 PO 0932 Prednisone 5 MG DAILY 07/23 1000 AC PO 07/25 1001 Prednisone 10 MG DAILY 07/20 1000 AC PO 07/22 1001 Prednisone 20 MG DAILY 07/17 1000 AC PO 07/19 1001 Prednisone 30 MG DAILY 07/14 1000 AC PO 07/16 1001 Prednisone 40 MG DAILY 07/11 1000 DC 07/13 PO 0932 Sodium Chloride 2 SPRAY Q4P PRN 07/10 1130 AC 07/12 JING 205 Tiotropium [place] 1 PUF DAILY 07/07 1556 AC 07/13 INH 0932 Warfarin Sodium 5 MG COUMADIN 1700 ONE 07/14 1700 AC PO 07/14 1701 Warfarin Sodium 5 MG COUMADIN 1700 ONE 07/13 1700 DC 07/13 PO 07/13 1701 1619 Zolpidem Tartrate 5 MG AT BEDTIME 07/09 2200 AC 07/13 PO 2055 Results Last 48 Hrs of Labs/Mics: Laboratory Tests 07/14/17 0615: Anion Gap 11, Estimated GFR > 60, BUN/Creatinine Ratio 38.9 H, PT 27.7 H, INR 2.66 H, CBC w Diff NO MAN DIFF REQ, RBC 4.37, MCV 84.1, MCH 27.3, RDW 16.4 H, MPV 8.3, Gran % 73.2, Lymphocytes % 19.4 L, Monocytes % 5.9, Eosinophils % 1.0, Basophils % 0.5, Absolute Granulocytes 7.0 H, Absolute Lymphocytes 1.8, Absolute Monocytes 0.6, Absolute Eosinophils 0.1, Absolute Basophils 0, PUBS MCHC 32.5 L 07/13/17 0655: Anion Gap 6, Estimated GFR > 60, BUN/Creatinine Ratio 40.0 H, Rux-E-Kfcymanfrat Pept 2250 H, PT 33.0 H, INR 3.18 H, CBC w Diff NO MAN DIFF REQ, RBC 4.29, MCV 82.8, MCH 27.3, RDW 15.9 H, MPV 8.3, Gran % 68.2, Lymphocytes % 22.3, Monocytes % 8.3, Eosinophils % 1.0, Basophils % 0.2, Absolute Granulocytes 6.1, Absolute Lymphocytes 2.0, Absolute Monocytes 0.7 H, Absolute Eosinophils 0.1, Absolute Basophils 0, PUBS MCHC 33.0 Recent Imaging Studies: Chest CT 07/13/2017: 1. A few small scattered stable pulmonary nodules. 2. Stable curvilinear scarring and/or atelectasis of the left lower lobe. Stable associated pleural thickening of the left lower lobe. No pleural effusion. 3. Advanced calcified atherosclerotic disease as detailed above. Assessment/Plan Assessment/Plan 76 y-o-w-f w/ hx hyperthyroidism s/p PTU w/ subsequent hypothyroidism, non- Hodgkin's lymphoma s/p chemo, long-standing tobacco use, COPD with previous hospitalizations for acute exacerbations, pulmonary nodules, left vocal cord paralysis, HTN, HLD, ch AF on warfarin, symptomatic bradycardia w/ pauses & new RBBB s/p ppm 10/13/2009, & RHD/CAD/HFpEF (MS/MR, s/p mitral valvuloplasty 1994, s/p MVR [21mm [facility]] & CABG x 1 09/2001) who presented to the ED w/ progressive SOB that has improved following management for both an AECOPD and HFpEF. She has had no acute electrocardiographic changes or evidence of myocardial necrosis by serial troponin I determinations. Inputs/outputs appear accurate. Weight today 132 lbs. Fortunately, she is feeling improved today and had a modest diuresis over the past 24 hours. Recommendations: * Continue on telemetry with strict inputs/outputs and daily weights. * Continue on her present cardiac regimen. * TRC, oxygen, antimicrobial therapy, steroids, etc. as per hospitalist/ pulmonary medicine. * Note that given the fact she has a mechanical mitral valve prosthesis and atrial fibrillation her goal INR is 2.5-3.5. Today's INR therapeutic at 3.18. * Continue low-dose aspirin therapy. * Review echocardiogram in regard to degree of aortic stenosis. * DVT prophylaxis being addressed by the warfarin anticoagulation. * Outpatient pharmacologic stress testing to exclude an ischemic component to her presentation. Continue telemetry? Yes
--- NOTE | 2017-07-14 09:20 | PN- Cardiology ---
Subjective Subjective: Not feeling as well this morning. Desaturated again last evening. Good diuresis over the past 24 hours. Objective Vital Signs and I&Os Vital Signs Date Time Temp Pulse Resp B/P B/P Pulse O2 O2 Flow FiO2 Mean Ox Delivery Rate 07/14 0807 158/76 07/14 903 102 158/76 07/14 903 158/76 07/14 0904 158/76 07/14 812 95 Nasal 1.0L Cannula 07/14 0712 98.3 59 20 170/70 94 Nasal 1.0L Cannula 07/14 0000 93 Nasal 1.0L Cannula 07/13 220 98.8 59 18 148/58 18 Nasal 1.0L Cannula 07/13 1915 94 Room Air 07/13 1727 92 Nasal 2.0L Cannula 07/13 1436 98.3 60 20 128/58 91 Nasal 1.0L Cannula 07/13 1227 94 Nasal 1.0L Cannula Intake & Output 07/14 1600 07/14 0000 07/13 1600 07/13 0000 Intake Total 430 240 240 Output Total 400 1900 650 400 350 Balance -400 -1900 -220 -160 -110 Intake, IV 30 Intake, Oral 400 240 240 Output, Urine 400 1900 650 400 350 Patient 132 lb Weight Weight Chair scale Measurement Method Physical Exam: Well-developed, well-nourished elderly white female in no acute distress. Vital signs: See above. HEENT: Normocephalic/atraumatic, EOMI, moist mucous membranes. Neck: No JVD, bilateral bruits versus transmitted systolic murmur. Lungs: Decreased breath sounds bilaterally, few bibasilar crackles, and expiratory wheezing. Heart: S1, S2 with appropriate mechanical valve sound and grade 2/6 systolic murmur. Abdomen: Soft, nontender, positive bowel sounds. Extremities: No edema. Current Medications: Current Medications Sig/Blanquita Start time Last Medication Dose Route Stop Time Status Admin Acetaminophen 650 MG Q6P PRN 07/07 1545 AC 07/10 PO 1220 Acetaminophen 1,000 MG Q6P PRN 07/07 1545 AC IV Albuterol Sulfate 3 ML BID 07/08 2199 AC 07/13 INH 1915 Albuterol Sulfate 2 PUF Q4P PRN 07/08 0216 AC INH Amitriptyline HCl 25 MG AT BEDTIME 07/07 2199 AC 07/13 PO 205 Amlodipine Besylate 5 MG DAILY 07/08 1000 AC 07/14 PO 0904 Aspirin Buffered 81 MG DAILY 07/07 1545 AC 07/14 PO 0904 Atorvastatin Calcium 60 MG 1700 07/08 1700 AC 07/13 PO 1619 Budesonide/ 2 PUF BID 07/07 1545 AC 07/14 Formoterol Fumarate INH 0905 Ferrous Sulfate 325 MG DAILY 07/08 1000 AC 07/14 PO 0904 Furosemide 60 MG 7:30 AM, & 4:30 PM 07/12 1630 AC 07/14 IV 0904 Insulin Aspart 0 TIDAC 07/07 1600 AC 07/13 SC 1634 Isosorbide 60 MG DAILY 07/07 1549 AC 07/14 Mononitrate PO 0907 Levothyroxine Sodium 0.05 MG DAILY AC 07/07 1549 AC 07/14 PO 0548 Losartan Potassium 50 MG DAILY 07/07 1549 AC 07/14 PO 0904 Metoprolol Tartrate 25 MG BID 07/07 1549 AC 07/14 PO 0904 Potassium Chloride 20 MEQ 0900 07/14 0900 DC 07/14 PO 07/14 0901 0918 Potassium Chloride 40 MEQ ONCE ONE 07/14 0830 DC 07/14 PO 07/14 0831 0904 Potassium Chloride 20 MEQ DAILY 07/08 1000 AC 07/13 PO 0932 Prednisone 5 MG DAILY 07/23 1000 AC PO 07/25 1001 Prednisone 10 MG DAILY 07/20 1000 AC PO 07/22 1001 Prednisone 20 MG DAILY 07/17 1000 AC PO 07/19 1001 Prednisone 30 MG DAILY 07/14 1000 AC PO 07/16 1001 Prednisone 40 MG DAILY 07/11 1000 DC 07/13 PO 0932 Sodium Chloride 2 SPRAY Q4P PRN 07/10 1130 AC 07/12 JING 2056 Tiotropium [place] 1 PUF DAILY 07/07 1556 AC 07/14 INH 0905 Warfarin Sodium 5 MG COUMADIN 1700 ONE 07/14 1700 AC PO 07/14 1701 Warfarin Sodium 5 MG COUMADIN 1700 ONE 07/13 1700 DC 07/13 PO 07/13 1701 1619 Zolpidem Tartrate 5 MG AT BEDTIME 07/09 2200 AC 07/13 PO 2055 Results Last 48 Hrs of Labs/Mics: Laboratory Tests 07/14/17 0615: Anion Gap 11, Estimated GFR > 60, BUN/Creatinine Ratio 38.9 H, PT 27.7 H, INR 2.66 H, CBC w Diff NO MAN DIFF REQ, RBC 4.37, MCV 84.1, MCH 27.3, RDW 16.4 H, MPV 8.3, Gran % 73.2, Lymphocytes % 19.4 L, Monocytes % 5.9, Eosinophils % 1.0, Basophils % 0.5, Absolute Granulocytes 7.0 H, Absolute Lymphocytes 1.8, Absolute Monocytes 0.6, Absolute Eosinophils 0.1, Absolute Basophils 0, PUBS MCHC 32.5 L 07/13/17 0655: Anion Gap 6, Estimated GFR > 60, BUN/Creatinine Ratio 40.0 H, Hbx-I-Pvoasjhzyoz Pept 2250 H, PT 33.0 H, INR 3.18 H, CBC w Diff NO MAN DIFF REQ, RBC 4.29, MCV 82.8, MCH 27.3, RDW 15.9 H, MPV 8.3, Gran % 68.2, Lymphocytes % 22.3, Monocytes % 8.3, Eosinophils % 1.0, Basophils % 0.2, Absolute Granulocytes 6.1, Absolute Lymphocytes 2.0, Absolute Monocytes 0.7 H, Absolute Eosinophils 0.1, Absolute Basophils 0, PUBS MCHC 33.0 Assessment/Plan Assessment/Plan 76 y-o-w-f w/ hx hyperthyroidism s/p PTU w/ subsequent hypothyroidism, non- Hodgkin's lymphoma s/p chemo, long-standing tobacco use, COPD with previous hospitalizations for acute exacerbations, pulmonary nodules, left vocal cord paralysis, HTN, HLD, ch AF on warfarin, symptomatic bradycardia w/ pauses & new RBBB s/p ppm 10/13/2009, & RHD/CAD/HFpEF (MS/MR, s/p mitral valvuloplasty 1994, s/p MVR [21mm [facility]] & CABG x 1 09/2001) who presented to the ED w/ progressive SOB that has improved following management for both an AECOPD and HFpEF. She has had no acute electrocardiographic changes or evidence of myocardial necrosis by serial troponin I determinations. Inputs/outputs appear accurate. Awaiting today's weight. Fortunately, she is feeling improved today and had a good diuresis over the past 24 hours. Recommendations: * Continue on telemetry with strict inputs/outputs and daily weights. * Continue on her present cardiac regimen. * TRC, oxygen, antimicrobial therapy, steroids, etc. as per hospitalist/ pulmonary medicine. * Note that given the fact she has a mechanical mitral valve prosthesis and atrial fibrillation her goal INR is 2.5-3.5. Today's INR therapeutic at 2.66. * Continue low-dose aspirin therapy. * Replete potassium. * DVT prophylaxis being addressed by the warfarin anticoagulation. * Outpatient pharmacologic stress testing to exclude an ischemic component to her presentation. Continue telemetry? Yes
--- NOTE | 2017-07-14 10:50 | PN- Pulmonary ---
Subjective HPI/Critical Care Issues: pt seen and examined still with dyspnea, slow improvement Objective Current Medications: Current Medications Sig/Blanquita Start time Last Medication Dose Route Stop Time Status Admin Acetaminophen 650 MG Q6P PRN 07/07 1545 AC 07/10 PO 1220 Acetaminophen 1,000 MG Q6P PRN 07/07 1545 AC IV Albuterol Sulfate 3 ML BID 07/08 2200 AC 07/13 INH 1915 Albuterol Sulfate 2 PUF Q4P PRN 07/08 0216 AC INH Amitriptyline HCl 25 MG AT BEDTIME 07/07 2200 AC 07/13 PO 205 Amlodipine Besylate 5 MG DAILY 07/08 1000 AC 07/14 PO 0904 Aspirin Buffered 81 MG DAILY 07/07 1545 AC 07/14 PO 0904 Atorvastatin Calcium 60 MG 1700 07/08 1700 AC 07/13 PO 1619 Budesonide/ 2 PUF BID 07/07 1545 AC 07/14 Formoterol Fumarate INH 0905 Ferrous Sulfate 325 MG DAILY 07/08 1000 AC 07/14 PO 0904 Furosemide 60 MG 7:30 AM, & 4:30 PM 07/12 1630 AC 07/14 IV 0904 Insulin Aspart 0 TIDAC 07/07 1600 AC 07/13 SC 1634 Isosorbide 60 MG DAILY 07/07 1549 AC 07/14 Mononitrate PO 0907 Levothyroxine Sodium 0.05 MG DAILY AC 07/07 1549 AC 07/14 PO 0548 Losartan Potassium 50 MG DAILY 07/07 1549 AC 07/14 PO 0904 Metoprolol Tartrate 25 MG BID 07/07 1549 AC 07/14 PO 0904 Potassium Chloride 20 MEQ 0900 07/14 0900 DC 07/14 PO 07/14 0901 0918 Potassium Chloride 40 MEQ ONCE ONE 07/14 0830 DC 07/14 PO 07/14 0831 0904 Potassium Chloride 20 MEQ DAILY 07/08 1000 AC 07/13 PO 0932 Prednisone 5 MG DAILY 07/23 1000 AC PO 07/25 1001 Prednisone 10 MG DAILY 07/20 1000 AC PO 07/22 1001 Prednisone 20 MG DAILY 07/17 1000 AC PO 07/19 1001 Prednisone 30 MG DAILY 07/14 1000 AC PO 07/16 1001 Prednisone 40 MG DAILY 07/11 1000 DC 07/13 PO 0932 Sodium Chloride 2 SPRAY Q4P PRN 07/10 1130 AC 07/12 JING 2056 Tiotropium [place] 1 PUF DAILY 07/07 1556 AC 07/14 INH 0905 Warfarin Sodium 5 MG COUMADIN 1700 ONE 07/14 1700 AC PO 07/14 1701 Warfarin Sodium 5 MG COUMADIN 1700 ONE 07/13 1700 DC 07/13 PO 07/13 1701 1619 Zolpidem Tartrate 5 MG AT BEDTIME 07/09 2200 AC 07/13 PO 2054 Vital Signs & I&O Last 24 Hrs of Vitals and I&O: Vital Signs Date Time Temp Pulse Resp B/P B/P Pulse O2 O2 Flow FiO2 Mean Ox Delivery Rate 07/14 906 158/76 07/14 903 102 158/76 07/14 903 158/76 07/14 903 158/76 07/14 08 95 Nasal 1.0L Cannula 07/14 0712 98.3 59 20 170/70 94 Nasal 1.0L Cannula 07/14 0000 93 Nasal 1.0L Cannula 07/13 2200 98.8 59 18 148/58 18 Nasal 1.0L Cannula 07/13 1915 94 Room Air 07/13 1727 92 Nasal 2.0L Cannula 07/13 1436 98.3 60 20 128/58 91 Nasal 1.0L Cannula 07/13 1227 94 Nasal 1.0L Cannula Intake & Output 07/14 1600 07/14 0800 07/14 0000 Intake Total Output Total 400 1900 Balance -400 -1900 Output, Urine 400 1900 Weight Measurement Method Exam Other Physical Findings: gen awake and alert heent ncat cvs s1, s2 lungs rare rhonchi abd soft, bs+ ext trace edema Results Last 24 Hrs of Lab Results: Laboratory Tests 07/14/17 0615: Anion Gap 11, Estimated GFR > 60, BUN/Creatinine Ratio 38.9 H, Magnesium Pending, PT 27.7 H, INR 2.66 H, CBC w Diff NO MAN DIFF REQ, RBC 4.37, MCV 84.1 , MCH 27.3, RDW 16.4 H, MPV 8.3, Gran % 73.2, Lymphocytes % 19.4 L, Monocytes % 5.9, Eosinophils % 1.0, Basophils % 0.5, Absolute Granulocytes 7.0 H, Absolute Lymphocytes 1.8, Absolute Monocytes 0.6, Absolute Eosinophils 0.1, Absolute Basophils 0, PUBS MCHC 32.5 L Impression/Plan Impression/Plan Impression/Plan: Impression 76 year old woman * excacerbation of CHF and likely mild COPD exacerbation secondary to URI Plan -cardiology (Dr. Huerta) follow up, diuresis -prednisone taper 40mg x 3 days, 30x3, 20x3, 10x3, 5x3 then stop -monitor glucose -trc/nebs -cont a/c -assess o2 needs -out of bed as tolerated -assess for rehab DVT prophylaxis at all times D/w her son Miko - also consider pulmonary rehab, info provided to son pt declines inpatient rehab as of now
[2017-07-14 14:41] VITALS: BP 118/64
[2017-07-14 20:29] VITALS: BP 142/56
[2017-07-14 22:02] VITALS: BP 134/50
[2017-07-15 06:53] VITALS: BP 188/76
--- NOTE | 2017-07-15 07:16 | PN- Housestaff ---
See Addendum Subjective Follow-up For: COPD/CHF Tele-Events Since Last Visit: Afib, 50-90 Subjective: Her HR was low last night, 50s. Metoprolol was held. BP was high this morning, 180s systolic. Losartan given early. No other issues overnight. Her breathing continues to improve. However, she desaturated to 87% ambulating off O2 yesterday. No CP, fever, chills, or other complaints. She potentially feels ready to go home. Review of Systems Constitutional: Reports: no symptoms. EENTM: Reports: no symptoms. Cardiovascular: Reports: no symptoms. Respiratory: Reports: see HPI. Gastrointestinal: Reports: no symptoms. Genitourinary: Reports: no symptoms. Musculoskeletal: Reports: no symptoms. Skin: Reports: no symptoms. Neurological/Psychological: Reports: no symptoms. Hematologic/Endocrine: Reports: no symptoms. Immunologic/Allergic: Reports: no symptoms. Objective Last 24 Hrs of Vital Signs/I&O Vital Signs Date Time Temp Pulse Resp B/P B/P Pulse O2 O2 Flow FiO2 Mean Ox Delivery Rate 07/15 0713 67 192/64 07/15 0653 98.1 57 18 188/76 95 Nasal Cannula 07/15 0000 Nasal 1.0L Cannula 07/14 2210 49 07/14 2202 97.6 57 18 134/50 96 07/149 98.3 55 18 142/56 97 Nasal 1.0L Cannula 07/14 1859 97 Nasal 1.0L Cannula 07/14 1600 Nasal 1.0L Cannula 07/14 1441 97.2 79 20 118/64 96 Nasal 1.0L Cannula 07/14 1054 98 Nasal 1.0L Cannula 07/14 0907 158/76 07/14 0904 102 158/76 07/14 0904 158/76 07/14 0904 158/76 07/14 0813 95 Nasal 1.0L Cannula Intake & Output 07/15 0800 07/15 0000 07/14 1600 Intake Total 240 440 Output Total 250 1100 Balance -10 -660 Intake, IV 40 Intake, Oral 240 400 Output, Urine 250 1100 Physical Exam General Appearance: Alert, Oriented X3, Cooperative, No Acute Distress Cardiovascular: Regular Rate, Normal S1, Normal S2 Lungs: mild wheezing Abdomen: Normal Bowel Sounds, Soft, No Tenderness Extremities: No Edema, Normal Pulses, No Tenderness/Swelling Current Medications: Current Medications Sig/Blanquita Start time Last Medication Dose Route Stop Time Status Admin Acetaminophen 650 MG Q6P PRN 07/07 1545 AC 07/10 PO 1220 Acetaminophen 1,000 MG Q6P PRN 07/07 1545 IV Albuterol Sulfate 3 ML BID 07/08 2200 AC 07/14 INH 1900 Albuterol Sulfate 2 PUF Q4P PRN 07/08 0216 AC INH Amitriptyline HCl 25 MG AT BEDTIME 07/07 2200 AC 07/14 PO 202 Amlodipine Besylate 5 MG DAILY 07/08 1000 AC 07/14 PO 0904 Aspirin Buffered 81 MG DAILY 07/07 1545 AC 07/14 PO 0904 Atorvastatin Calcium 60 MG 1700 07/08 1700 AC 07/14 PO 1600 Budesonide/ 2 PUF BID 07/07 1545 AC 07/14 Formoterol Fumarate INH 202 Ferrous Sulfate 325 MG DAILY 07/08 1000 AC 07/14 PO 0904 Furosemide 60 MG 7:30 AM, & 4:30 PM 07/14 1630 AC 07/14 PO 1559 Furosemide 60 MG 7:30 AM, & 4:30 PM 07/12 1630 DC 07/14 IV 0904 Insulin Aspart 0 TIDAC 07/07 1600 AC 07/14 SC 1802 Isosorbide 60 MG DAILY 07/07 1549 AC 07/14 Mononitrate PO 0907 Levothyroxine Sodium 0.05 MG DAILY AC 07/07 1549 AC 07/15 PO 0549 Losartan Potassium 50 MG DAILY 07/07 1549 AC 07/15 PO 0713 Methylprednisolone 40 MG ONCE ONE 07/14 1400 DC IV 07/14 1401 Metoprolol Tartrate 25 MG BID 07/07 1549 AC 07/14 PO 0904 Potassium Chloride 20 MEQ 0900 07/14 0900 DC 07/14 PO 07/14 0901 0918 Potassium Chloride 40 MEQ ONCE ONE 07/14 0830 DC 07/14 PO 07/14 0831 0904 Potassium Chloride 20 MEQ DAILY 07/08 1000 AC 07/14 PO 1223 Prednisone 5 MG DAILY 07/23 1000 AC PO 07/25 1001 Prednisone 10 MG DAILY 07/20 1000 AC PO 07/22 1001 Prednisone 20 MG DAILY 07/17 1000 AC PO 07/19 1001 Prednisone 30 MG DAILY 07/14 1000 AC 07/14 PO 07/16 1001 0943 Prednisone 40 MG DAILY 07/11 1000 DC 07/13 PO 0932 Sodium Chloride 2 SPRAY Q4P PRN 07/10 1130 AC 07/12 JING 7 Tiotropium [place] 1 PUF DAILY 07/07 1556 AC 07/14 INH 0905 Warfarin Sodium 5 MG COUMADIN 1700 ONE 07/14 1700 DC 07/14 PO 07/14 1701 1559 Zolpidem Tartrate 5 MG AT BEDTIME 07/09 2200 AC 07/14 PO 2027 Last 24 Hrs of Lab/[place] Results Last 24 Hrs of Labs/Mics: Laboratory Tests 07/15/17 0625: Sodium Pending, Potassium Pending, Chloride Pending, Carbon Dioxide Pending, Anion Gap Pending, BUN Pending, Creatinine Pending, BUN/Creatinine Ratio Pending Assessment/Plan Assessment: Ms. Rodriguez is a 76-year-old female with past medical history of congestive heart failure, seizure, mitral valve replacement with [facility] valve, cataracts, atrial fibrillation warfarin, hypertension, hyperlipidemia, pacemaker, COPD followed by Dr. Nails, diabetes mellitus, hypothyroidism, and non-Hodgkin's lymphoma here with COPD/CHF exacerbation. Problem list: 1. COPD exacerbation 2. Upper respiratory infection 3. CHF exacerbation 4. Bradycardia #COPD exacerbation/CHF exacerbation: Resolving. On admission, D-dimer was negative. Chest x-ray more concerning for COPD although there is likely an element of CHF. Likely caused by a recent upper respiratory infection. EKG and troponins 3 were negative. TTE revealed EF 50%, RV pressure 47 mmHg. patient was improving but then her breathing on Thursday worsened. Repeat Chest x-ray showing persistent left pleural effusion. CT chest showed a few small scattered stable pulmonary nodules, stable scarring of the left lower lobe, no pleural effusion, and advanced atherosclerotic disease. She is now improved. Ambulatory saturation dropped to 87% yesterday off oxygen. Still on 1LNC. We talked to pulmonology and she will need home oxygen. -Appreciate Pulmonology recommendations -Appreciate cardiology recommendations -Prednisone taper 30x2, 20x3, 10x3, 5x3 then stop -TRC nebulizers -Furosemide 60 mg PO twice a day -Daily weights, strict I's and O's #Bradycardia: Patient's heart rate has been going down to the 40s. She has a pacemaker that should be set at 60. We'll talk to cardiology about interrogating the pacemaker. -Interrogate pacemaker #Chronic medical problems: Anemia, hypertension, COPD, hypothyroidism, CAD, hyperlipidemia, depression -Continue home potassium chloride, ferrous sulfate, amlodipine, furosemide, amitriptyline, albuterol, tiotropium, ipratropium, metoprolol, losartan, levothyroxine, isosorbide mononitrate, budesonide/formoterol, atorvastatin, aspirin -Daily INR, dose warfarin, goal 2.5-3.5 -Detemir plus insulin sliding scale DVT prophylaxis with warfarin consistent carbohydrate 2 diet Full code Problem List: 1. CHF (congestive heart failure) 2. Acute exacerbation of chronic obstructive pulmonary disease (COPD) Pain Ratin Pain Location: no pain Pain Goal: Remain pain free Pain Plan: see a/p Tomorrow's Labs & Rationales: inr
[2017-07-15 09:32] VITALS: BP 160/72
[2017-07-15 10:35] LABS: PT 33.8 SEC (9.4-12.5)
--- NOTE | 2017-07-15 10:42 | PN- Pulmonary ---
Subjective HPI/Critical Care Issues: pt seen and examined feels better 87% exertion on room air qualifying for o2 Objective Current Medications: Current Medications Sig/Blanquita Start time Last Medication Dose Route Stop Time Status Admin Acetaminophen 650 MG Q6P PRN 07/07 1545 AC 07/10 PO 1220 Acetaminophen 1,000 MG Q6P PRN 07/07 1545 AC IV Albuterol Sulfate 3 ML BID 07/08 2200 AC 07/15 INH 0914 Albuterol Sulfate 2 PUF Q4P PRN 07/08 0216 AC INH Amitriptyline HCl 25 MG AT BEDTIME 07/07 2200 AC 07/14 PO 2027 Amlodipine Besylate 5 MG DAILY 07/08 1000 AC 07/15 PO 0931 Aspirin Buffered 81 MG DAILY 07/07 1545 AC 07/15 PO 0932 Atorvastatin Calcium 60 MG 1700 07/08 1700 AC 07/14 PO 1600 Budesonide/ 2 PUF BID 07/07 1545 AC 07/15 Formoterol Fumarate INH 0933 Ferrous Sulfate 325 MG DAILY 07/08 1000 AC 07/15 PO 0931 Furosemide 60 MG 7:30 AM, & 4:30 PM 07/14 1630 AC 07/15 PO 0932 Furosemide 60 MG 7:30 AM, & 4:30 PM 07/12 1630 DC 07/14 IV 0904 Insulin Aspart 0 TIDAC 07/07 1600 AC 07/15 SC 0932 Isosorbide 60 MG DAILY 07/07 1549 AC 07/15 Mononitrate PO 0932 Levothyroxine Sodium 0.05 MG DAILY AC 07/07 1549 AC 07/15 PO 0549 Losartan Potassium 50 MG DAILY 07/07 1549 AC 07/15 PO 0713 Methylprednisolone 40 MG ONCE ONE 07/14 1400 DC IV 07/14 1401 Metoprolol Tartrate 25 MG BID 07/07 1549 AC 07/15 PO 0931 Potassium Chloride 20 MEQ DAILY 07/08 1000 AC 07/15 PO 0931 Prednisone 5 MG DAILY 07/23 1000 AC PO 07/25 1001 Prednisone 10 MG DAILY 07/20 1000 AC PO 07/22 1001 Prednisone 20 MG DAILY 07/17 1000 AC PO 07/19 1001 Prednisone 30 MG DAILY 07/14 1000 AC 07/15 PO 07/16 1001 0931 Sodium Chloride 2 SPRAY Q4P PRN 07/10 1130 AC 07/12 JING 2056 Tiotropium [place] 1 PUF DAILY 07/07 1556 AC 07/15 INH 0932 Warfarin Sodium 5 MG COUMADIN 1700 ONE 07/14 1700 DC 07/14 PO 07/14 1701 1559 Zolpidem Tartrate 5 MG AT BEDTIME 07/09 2199 AC 07/14 PO 2026 Vital Signs & I&O Last 24 Hrs of Vitals and I&O: Vital Signs Date Time Temp Pulse Resp B/P B/P Pulse O2 O2 Flow FiO2 Mean Ox Delivery Rate 07/15 0832 160/72 07/15 0831 160/72 07/15 0831 160/72 07/15 0815 97 Nasal 1.0L Cannula 07/15 0828 97 Nasal 1.0L Cannula 07/15 0713 67 192/64 07/15 0653 98.1 57 18 188/76 95 Nasal Cannula 07/15 0000 Nasal 1.0L Cannula 07/14 2210 49 07/14 2202 97.6 57 18 134/50 96 07/14 2028 98.3 55 18 142/56 97 Nasal 1.0L Cannula 07/14 1859 97 Nasal 1.0L Cannula 07/14 1600 Nasal 1.0L Cannula 07/14 1441 97.2 79 20 118/64 96 Nasal 1.0L Cannula 07/14 1054 98 Nasal 1.0L Cannula Intake & Output 07/15 1600 07/15 0800 07/15 0000 Intake Total 240 Output Total 400 250 Balance -400 -10 Intake, Oral 240 Output, Urine 400 250 Exam Other Physical Findings: gen awake and alert heent ncat cvs s1, s2 lungs rare rhonchi abd soft, bs+ ext trace edema Results Last 24 Hrs of Lab Results: Laboratory Tests 07/15/17 0910: PT Pending, INR Pending 07/15/17 0625: Anion Gap 12, Estimated GFR > 60, BUN/Creatinine Ratio 34.4 H Impression/Plan Impression/Plan Impression/Plan: Impression 76 year old woman * excacerbation of CHF and likely mild COPD exacerbation secondary to URI Plan -cardiology (Dr. Huerta) follow up, possible cardiac cath as outpt -prednisone taper as ordered -monitor glucose -trc/nebs -cont a/c -qualifes for o2, 87% o2 on exertion/RA -out of bed as tolerated -assess for rehab DVT prophylaxis at all times D/w her son Miko - also consider pulmonary rehab, info provided to son pt declines inpatient rehab as of now
--- NOTE | 2017-07-15 12:45 | PN- Cardiology ---
Subjective Subjective: "Feel okay". Properly functioning electronic pacemaker at 50 bpm (documented lower rate limit ) with underlying atrial fibrillation. Objective Vital Signs and I&Os Vital Signs Date Time Temp Pulse Resp B/P B/P Pulse O2 O2 Flow FiO2 Mean Ox Delivery Rate 07/15 0932 160/72 07/15 0931 160/72 07/15 0931 160/72 07/15 0915 97 Nasal 1.0L Cannula 07/15 0828 97 Nasal 1.0L Cannula 07/15 0713 67 192/64 07/15 0653 98.1 57 18 188/76 95 Nasal Cannula 07/15 0000 Nasal 1.0L Cannula 07/14 2210 49 07/14 2202 97.6 57 18 134/50 96 07/14 2028 98.3 55 18 142/56 97 Nasal 1.0L Cannula 07/14 1859 97 Nasal 1.0L Cannula 07/14 1600 Nasal 1.0L Cannula 07/14 1441 97.2 79 20 118/64 96 Nasal 1.0L Cannula Intake & Output 07/15 1600 07/15 0800 07/15 0000 07/14 1600 07/14 0800 07/14 0000 Intake Total 240 440 Output Total 187 952 2369 400 1900 Balance -400 -10 -660 -400 -1900 Intake, IV 40 Intake, Oral 240 400 Output, Urine 124 887 5051 400 1900 Weight Measurement Method Physical Exam: Well-developed, well-nourished elderly white female in no acute distress. Vital signs: See above. HEENT: Normocephalic/atraumatic, EOMI, moist mucous membranes. Neck: No JVD, bilateral bruits versus transmitted systolic murmur. Lungs: Decreased breath sounds bilaterally, occasional rhonchi, and mild expiratory wheezing. Heart: S1, S2 with appropriate mechanical valve sound and grade 2/6 systolic murmur. Abdomen: Soft, nontender, positive bowel sounds. Extremities: No edema. Current Medications: Current Medications Sig/Blanquita Start time Last Medication Dose Route Stop Time Status Admin Acetaminophen 650 MG Q6P PRN 07/07 1545 AC 07/10 PO 1220 Acetaminophen 1,000 MG Q6P PRN 07/07 1545 AC IV Albuterol Sulfate 3 ML BID 07/08 2200 AC 07/15 INH 0914 Albuterol Sulfate 2 PUF Q4P PRN 07/08 0216 AC INH Amitriptyline HCl 25 MG AT BEDTIME 07/07 2200 AC 07/14 PO 202 Amlodipine Besylate 5 MG DAILY 07/08 1000 AC 07/15 PO 0931 Aspirin Buffered 81 MG DAILY 07/07 1545 AC 07/15 PO 0932 Atorvastatin Calcium 60 MG 1700 07/08 1700 AC 07/14 PO 1600 Budesonide/ 2 PUF BID 07/07 1545 AC 07/15 Formoterol Fumarate INH 0933 Ferrous Sulfate 325 MG DAILY 07/08 1000 AC 07/15 PO 0931 Furosemide 60 MG 7:30 AM, & 4:30 PM 07/14 1630 AC 07/15 PO 0932 Furosemide 60 MG 7:30 AM, & 4:30 PM 07/12 1630 DC 07/14 IV 0904 Insulin Aspart 0 TIDAC 07/07 1600 AC 07/15 SC 1209 Isosorbide 60 MG DAILY 07/07 1549 AC 07/15 Mononitrate PO 0932 Levothyroxine Sodium 0.05 MG DAILY AC 07/07 1549 AC 07/15 PO 0549 Losartan Potassium 50 MG DAILY 07/07 1549 AC 07/15 PO 0713 Methylprednisolone 40 MG ONCE ONE 07/14 1400 DC IV 07/14 1401 Metoprolol Tartrate 25 MG BID 07/07 1549 AC 07/15 PO 0931 Potassium Chloride 20 MEQ DAILY 07/08 1000 AC 07/15 PO 0931 Prednisone 5 MG DAILY 07/23 1000 AC PO 07/25 1001 Prednisone 10 MG DAILY 07/20 1000 AC PO 07/22 1001 Prednisone 20 MG DAILY 07/17 1000 AC PO 07/19 1001 Prednisone 30 MG DAILY 07/14 1000 AC 07/15 PO 07/16 1001 0931 Sodium Chloride 2 SPRAY Q4P PRN 07/10 1130 AC 07/12 JING 205 Tiotropium [place] 1 PUF DAILY 07/07 1556 AC 07/15 INH 0932 Warfarin Sodium 5 MG COUMADIN 1700 ONE 07/15 1700 AC PO 07/15 1701 Warfarin Sodium 5 MG COUMADIN 1700 ONE 07/14 1700 DC 07/14 PO 07/14 1701 1559 Zolpidem Tartrate 5 MG AT BEDTIME 07/09 2200 AC 07/14 PO 2026 Results Last 48 Hrs of Labs/Mics: Laboratory Tests 07/15/17 0910: PT 33.8 H, INR 3.26 H 07/15/17 0625: Anion Gap 12, Estimated GFR > 60, BUN/Creatinine Ratio 34.4 H 07/14/17 0615: Anion Gap 11, Estimated GFR > 60, BUN/Creatinine Ratio 38.9 H, Magnesium 2.1, PT 27.7 H, INR 2.66 H, CBC w Diff NO MAN DIFF REQ, RBC 4.37, MCV 84.1, MCH 27.3, RDW 16.4 H, MPV 8.3, Gran % 73.2, Lymphocytes % 19.4 L, Monocytes % 5.9, Eosinophils % 1.0, Basophils % 0.5, Absolute Granulocytes 7.0 H, Absolute Lymphocytes 1.8, Absolute Monocytes 0.6, Absolute Eosinophils 0.1, Absolute Basophils 0, PUBS MCHC 32.5 L Assessment/Plan Assessment/Plan 76 [id number] w/ hx hyperthyroidism s/p PTU w/ subsequent hypothyroidism, non- Hodgkin's lymphoma s/p chemo, long-standing tobacco use, COPD w/ previous hospitalizations for AECOPD, pul nodules, L vocal cord paralysis, HTN, HLD, ch AF on warfarin, symptomatic bradycardia w/ pauses & new RBBB s/p ppm 10/13/2009, & RHD/CAD/HFpEF (MS/MR, s/p mitral valvuloplasty 05/1995, s/p MVR [21mm [facility] ] & CABG x 1 09/2001) who presented to the ED 03/27/2017 w/ progressive SOB that has improved following management for both an AECOPD and HFpEF. She has had no acute electrocardiographic changes or evidence of myocardial necrosis by serial troponin I determinations. Fortunately, she is feeling improved today, but did desaturate to 87% on room air with exertion will be maintained on outpatient O2. Review echocardiogram and degree of aortic stenosis appears to be moderate. Recommendations: * Will follow-up in the near future from a cardiac standpoint. * Pacemaker interrogation as an outpatient. * Continue on her present cardiac regimen. * Note that given the fact she has a mechanical mitral valve prosthesis and atrial fibrillation her goal INR is 2.5-3.5. Today's INR therapeutic at 3.26. * Continue low-dose aspirin therapy for mechanical for mechanical mitral valve prosthesis.. * Outpatient pharmacologic stress testing vs cardiac catheterization. Continue telemetry? No
[2017-07-15] MEDS ORDERED: PREDNISONE20 M1 PO (13:02)
[2017-07-15] MEDS ORDERED: PREDNISONE5 M1 PO (13:02)
[2017-07-15] MEDS ORDERED: PREDNISONE10 M2 PO (13:02)
--- NOTE | 2017-07-15 13:04 | Discharge Summary ---
Visit Information Visit Dates Admission Date: 07/07/17 Discharge Date: 07/15/17 Hospital Course Course Attending Physician: Andres RODRÍGUEZ,Mckay Cowart Primary Care Physician: Dominik Silverio MD Hospital Course: Ms. Rodriguez is a 76-year-old female with past medical history of congestive heart failure, seizure, mitral valve replacement with [facility] valve, cataracts, atrial fibrillation warfarin, hypertension, hyperlipidemia, pacemaker, COPD followed by Dr. Nails, diabetes mellitus, hypothyroidism, and non-Hodgkin's lymphoma who presented with shortness of breath and weakness. On presentation, vital signs were T 98.5, HR 71, RR 26, BP 164/64, saturating 94 % on room air. Laboratories are significant for white blood cell count 4.6, 90.6 % myelocytes, hemoglobin 12.1, BUN 24, creatine 0.8, glucose 246, calcium 9.3, negative LFTs, troponin 0.03, BNP 3520 (baseline 4020), TSH 0.523. Chest x-ray revealed no changes from prior but did show left small pleural effusion and bronchial wall thickening. She was admitted to telemetry and treated for following problems: 1. COPD exacerbation 2. Upper respiratory infection 3. CHF exacerbation 4. Bradycardia #COPD exacerbation/CHF exacerbation: On admission, patient presented with shortness of breath, crackles, wheezing, and lower extremity edema. D-dimer was negative. Chest x-ray was initially more concerning for COPD, though there was likely also an element of CHF. Pulmonology and cardiology were consulted. EKG and troponins 3 were negative. TTE revealed EF 50%, RV pressure 47 mmHg. Patient was treated with diuresis, nebulizers, and steroids. After initial improvement, the patient's breathing somewhat worsened. Repeat chest x-ray showed persistent left pleural effusion. CT chest showed a few small scattered stable pulmonary nodules, stable scarring of the left lower lobe, no pleural effusion, and advanced atherosclerotic disease. She subsequently improved with further diuresis, nebulizer, and steroids. This was most likely caused by recent upper respiratory infection. She was requiring oxygen therapy throughout her stay and we were unable to wean her completely off the oxygen. Ambulatory saturation dropped to 87% off oxygen. We talked to pulmonology and she will need home oxygen. She has been given a prescription. She should follow-up with pulmonology and cardiology for further care. Cardiology also mentions that they will likely need to do an outpatient cardiac cath at some point. She should continue the steroid taper as prescribed. #Bradycardia: The patient's heart rate was noticed to be going down to the 50s. We talked to Dr. Huerta, cardiology, and he notes that the pacemaker is set at 50 and that this is normal. He will interrogate the pacemaker as an outpatient. #Chronic medical problems: Anemia, hypertension, COPD, hypothyroidism, CAD, hyperlipidemia, depression: The following home medications were continued: potassium chloride, ferrous sulfate, amlodipine, furosemide, amitriptyline, albuterol, tiotropium, ipratropium, metoprolol, losartan, levothyroxine, isosorbide mononitrate, budesonide/formoterol, atorvastatin, aspirin. INR was checked daily and her warfarin was dosed for INR between 2.5-3.5. She was also given detemir plus insulin signs scale. Allergies: Coded Allergies: grass pollen (Mild, RUNNY NOSE/EYES 03/27/17) Sulfa (Sulfonamide Antibiotics) (RASH 03/27/17) sulfamethoxazole (From BACTRIM) (Intermediate, NAUSEA, RASH 03/27/17) trimethoprim (From BACTRIM) (Intermediate, NAUSEA, RASH 03/27/17) Disposition Summary Disposition Principal Diagnosis: 1. COPD exacerbation Additional Diagnosis: 2. Upper respiratory infection 3. CHF exacerbation 4. Bradycardia Discharge Disposition: home or self care Discharge Instructions General Discharge Information Code Status: Full Code Patient's Diet: Heart healthy Patient's Activity: As tolerated Follow-Up Instructions/Appts: Please take all medications as directed. Please follow-up with the careers adviser, Dr. Huerta. Please follow-up with the dopeman, Dr. Nails. Please follow- up with your primary care doctor. Medications at Discharge Discharge Medications: Continue taking these medications: Furosemide (Lasix) 80 MG TABLET 1 Tablet ORAL TWICE DAILY Comments: Last Taken: 60 MG IV 03/31 Time: 0900 AM Insulin NPL/Insulin Lispro (Humalog Mix 75-25 Vial) 100 UNIT/1 ML VIAL 8 Units Inject into fatty tissue Every Morning Comments: PER PT Amlodipine Besylate (Amlodipine Besylate) 5 MG TABLET 1 Tablet ORAL DAILY Qty = 90 Comments: Last Taken:07/15/17 Time:1000 Atorvastatin Calcium (Atorvastatin Calcium) 20 MG TABLET 3 Tablet ORAL DAILY Comments: Last Taken: 07/14/17 Time: 5 PM Metformin HCl (Metformin HCl ER) 500 MG TAB.ER.24H 2 Tablet ORAL DAILY Qty = 180 Comments: NOT GIVEN AT HOSPITAL Losartan Potassium (Losartan Potassium) 50 MG TABLET 1 Tablet ORAL DAILY Qty = 90 Comments: Last Taken: 03/31/17 Time: 0900 AM Levothyroxine Sodium (Levothyroxine Sodium) 50 MCG TABLET 1 Tablet ORAL DAILY BEFORE BREAKFAST Qty = 30 Comments: Last Taken: 03/31/17 Time: 0600 Aspirin (Ecotrin*) 81 MG TABLET.DR 1 Tablet ORAL DAILY Comments: Last Taken: 07/15/17 Time: 0900 AM Metoprolol Tartrate (Metoprolol Tartrate) 25 MG TABLET 1 Tablet ORAL TWICE DAILY Qty = 180 Comments: Last Taken: 03/31/17 Time: 0900 AM Isosorbide Mononitrate (Isosorbide Mononitrate ER) 60 MG TAB.ER.24H 1 Tablet ORAL DAILY Qty = 90 Comments: Last Taken: 03/31/17 Time: 0900 AM Budesonide/Formoterol Fumarate (Symbicort 160-4.5 Mcg Inhaler) 160 MCG-4.5 MCG/ ACTUATION HFA.AER.AD 2 Puff Inhale through mouth TWICE DAILY Qty = 10 Comments: Last Taken: 07/15/17 Time: 0900 AM Denosumab (Prolia) (Unknown Strength) SYRINGE Unknown Dose INJECTABLE Q6M Comments: NOT GIVEN AT HOSPITAL Cholecalciferol (Vitamin D3) (Vitamin D) 1,000 UNIT TABLET 1 Tablet ORAL DAILY Comments: Last Taken: 07/15/17 Time: 0900 AM Ferrous Sulfate (IRON) 325 MG (65 MG IRON) TABLET 1 Tablet ORAL DAILY Comments: Last Taken: NOT GIVEN AT HOSPITAL Time: Perphenazine/Amitriptyline HCl (Perphen-Amitrip 2 MG-25 MG Tab) 2 MG-25 MG TABLET 1 Tablet ORAL Every Morning Qty = 90 Comments: NOT GIVEN AT HOSPITAL Calcium (Elemental-Fr Calcarb) (Calcium) 600 MG CALCIUM (1,500 MG) TABLET 1,200 Milligram ORAL DAILY Warfarin Sodium (Coumadin) 5 MG TABLET 1 Tablet ORAL MoTu Warfarin Sodium (Coumadin) 7.5 MG TABLET 1 Tablet ORAL SuWeThFrSa Potassium Chloride (K-Tab ER) 20 MEQ TABLET.ER 1 Tablet ORAL DAILY Start taking the following new medications: Prednisone (Prednisone) 5 MG TABLET 5 Milligram ORAL DAILY Qty = 3 No Refills Instructions: Please take from 07/23-07/25 Prednisone (Prednisone) 10 MG TABLET 30 Milligram ORAL DAILY Qty = 3 No Refills Instructions: Please take on 07/16 Prednisone (Prednisone) 20 MG TABLET 20 Milligram ORAL DAILY Qty = 3 No Refills Instructions: Please take from 07/17-07/19 Prednisone (Prednisone) 10 MG TABLET 10 Milligram ORAL DAILY Qty = 3 No Refills Instructions: Please take from 07/20-07/22 Copies To: Jean Claude RODRÍGUEZ,Dominik Farmer; Bradley RODRÍGUEZ,David Cowart; Jesu RODRÍGUEZ,Sam
--- NOTE | 2017-07-15 13:04 | Patient Discharge Instructions ---
Discharge Instructions General Discharge Information You were seen/treated for: Congestive heart failure and chronic obstructive pulmonary disease exacerbation Watch for these problems: Chest pain, shortness of breath, fever, chills Special Instructions: Please take all medications as directed. Please follow-up with the real estate professional, Dr. Huerta. Please follow-up with the investigator fraud, Dr. Nails. Please follow- up with your primary care doctor. Diet Continue normal diet: Yes Recommended Diet: Heart Healthy Activity Full Activity/No Limits: Yes Acute Coronary Syndrome Inclusion Criteria At DC or during hospital stay patient has or had the following: ACS DIAGNOSIS No Discharge Core Measures Meds if any: Prescribed or Continued at Discharge Meds if any: NOT Prescribed or Continued at Discharge Congestive Heart Failure Inclusion Criteria At DC or during hospital stay patient has or had the following: CHF DIAGNOSIS Yes Discharge Core Measures Meds if any: Prescribed or Continued at Discharge Meds if any: NOT Prescribed or Continued at Discharge Cerebrovascular accident Inclusion Criteria At DC or during hospital stay patient has or had the following: CVA/TIA Diagnosis No Discharge Core Measures Meds if any: Prescribed or Continued at Discharge Meds if any: NOT Prescribed or Continued at Discharge Venous thromboembolism Inclusion Criteria VTE Diagnosis No VTE Type NONE VTE Confirmed by (Test) NONE Discharge Core Measures - Per Current guidelines, there needs to be overlap - treatment for the first 5 days of Warfarin therapy. - If discharged on Warfarin prior to 5 days of - overlap therapy, the patient will need to be - assessed for post discharge needs including - *Post discharge parental anticoagulation - *Warfarin and/or parental anticoagulation education - *Follow up date to check INR post discharge At least 5 days overlap therapy as Inpatient No Meds if any: Prescribed or Continued at Discharge Note: Overlap Therapy is Warfarin and Anticoagulant Meds if any: NOT Prescribed or Continued at Discharge
== END 2017-07-15 16:15 | DRG 190 ==
LOC: ERH 11:18 → 1NO 14:09 → ERHI 14:09 → ENRESERV 15:04 → ENTRNSPT 16:56 → 1NO 17:24 → CMPTRNSPT 17:35 → ENPENDDIS 07-15 13:04 → 1NO 07-15 16:15
PROVIDERS: Hospitalist; Internal Medicine; Internal Medicine Adolescent Medicine; Physician Assistant Medical; Student in an Organized Health Care Education/Training Program
DX: J44.1 Chronic obstructive pulmonary disease with (acute) exacerbation (principal); I50.33 Acute on chronic diastolic (congestive) heart failure; I11.0 Hypertensive heart disease with heart failure; E11.9 Type 2 diabetes mellitus without complications; Z95.1 Presence of aortocoronary bypass graft; J06.9 Acute upper respiratory infection, unspecified; E03.9 Hypothyroidism, unspecified; F32.9 Major depressive disorder, single episode, unspecified; E78.5 Hyperlipidemia, unspecified; I08.0 Rheumatic disorders of both mitral and aortic valves; Z95.4 Presence of other heart-valve replacement; Z95.0 Presence of cardiac pacemaker; Z85.72 Personal history of non-Hodgkin lymphomas; Z87.891 Personal history of nicotine dependence
CPT/HCPCS: 1NSP; 36415; 71045; 71046; 82436; 87070; 87449; 87450; 87804; 87804-59; 93005; 93010; 93306; 96374; 99291; J0456; J1940; J2920; J3490; J7512